=== PATIENT | male | born 1950 | race Caucasian/White ===

== ENCOUNTER 2018-02-28 16:51 | Inpatient (IN) ==
--- NOTE | 2018-02-28 18:45 | ED ---
HPI General Chief Complaint: Abdominal Pain Stated Complaint: abd pain X1week Time Seen by Provider: 02/28/18 18:35 History of Present Illness HPI narrative: This patient complains of abdominal pain. Duration 1 week. Severity is moderate. It waxes and wanes. He is not having vomiting or diarrhea or fever. He has history of 30 years of heavy alcohol abuse but quit 2 weeks ago. He does not go to Dr. or take any meds. No alleviating factors. No exacerbating factors. Denies history of pancreatitis or liver failure. He has chronic leg edema. His abdomen is swollen more than usual. Related Data Home Medications Medication Instructions Recorded Confirmed No Known Home Medications 02/28/18 02/28/18 Allergies Allergy/AdvReac Type Severity Reaction Status Date / Time No Known Allergies Allergy Unverified 02/28/18 16:59 Review of Systems Except as stated in HPI: all other systems reviewed are negative [facility] Surgical History Surgical History Hx of mitral valve repair (Acute) Social History Social History Substance History: No History of Abuse Second Hand Smoke Exposure: No Smoking Status: Never smoker How Often Do You Have a Drink Containing Alcohol: Monthly or less Recent Travel in [facility] within the Last 8 Weeks: No Recent Out of Country Travel within the Last 8 Weeks: No Immunization History Tetanus Immunization: Never Vaccinated Hx Influenza Vaccine This Season: No Exam Narrative Exam Narrative: GENERAL: Well-nourished, well-developed patient in no apparent distress. SKIN: Focused skin assessment reveals no rash and nodules. Skin is Warm and dry. HEAD: Atraumatic. Normocephalic. EYES: Pupils equal and round. No scleral icterus. No injection or drainage. ENT: No nasal bleeding or discharge. Mucous membranes pink and moist. NECK: Trachea midline. No JVD. CARDIOVASCULAR: Regular rate and rhythm. No murmur appreciated. RESPIRATORY: No accessory muscle use. Clear to auscultation. Breath sounds equal bilaterally. GASTROINTESTINAL: Abdomen soft, protuberant, some ascites present mild diffuse tenderness without rebound or guarding. Hepatic and splenic margins not palpable. MUSCULOSKELETAL: No obvious deformities. No clubbing. No cyanosis. Mild symmetric edema of the lower extremities. NEUROLOGICAL: Awake and alert. No obvious cranial nerve deficits. Motor grossly within normal limits. Normal speech. PSYCHIATRIC: Appropriate mood and affect; insight and judgment normal. Course Initial Documented Vital Signs Temperature 97.6 F 02/28/18 17:00 Pulse Rate 85 08/05/18 17:00 Respiratory Rate 18 02/28/18 17:00 Blood Pressure 119/68 02/28/18 17:00 Pulse Oximetry 98 02/28/18 17:00 Last Documented Vital Signs Temperature 97.6 F 02/28/18 17:00 Pulse Rate 85 02/28/18 17:00 Respiratory Rate 18 02/28/18 17:02 Blood Pressure 119/68 02/28/18 17:00 Pulse Oximetry 98 02/28/18 19:03 Medical Decision Making MDM Narrative Medical decision making narrative: I am seeing this patient 15 minutes before shift and. I am going to initiate an abdominal pain workup and the case will be checked out to the evening physician. Differential Diagnosis Differential Diagnosis: Cirrhosis, pancreatitis, colitis Medical Records Medical records reviewed: Yes I reviewed the patient's medical records. Lab Data Lab results reviewed: Yes I reviewed the patient's lab results. Result diagrams: 02/28/18 19:00 02/28/18 19:00 Lab Results 02/28/18 02/28/18 Range/Units 19:00 19:00 CBC w Diff Auto diff final WBC 11.1 H (4.0-11.0) th/mm3 RBC 4.47 L (4.50-5.90) mil/mm3 Hgb 10.8 L (13.0-17.0) gm/dL Hct 33.7 L (39.0-51.0) % MCV 75.4 L (80.0-100.0) fL MCH 24.1 L (27.0-34.0) pg MCHC 32.0 (32.0-36.0) % RDW 14.7 (11.6-17.2) % Plt Count 705 H (150-450) th/mm3 MPV 7.2 (7.0-11.0) fL Neut % (Auto) 82.1 H (16.0-70.0) % Lymph % (Auto) 8.2 L (9.0-44.0) % [place] % (Auto) 8.8 H (0.0-8.0) % Eos % (Auto) 0.6 (0.0-4.0) % Baso % (Auto) 0.3 (0.0-2.0) % Neut # (Auto) 9.1 H (1.8-7.7) th/mm3 Lymph # (Auto) 0.9 L (1.0-4.8) th/mm3 [place] # (Auto) 1.0 H (0.0-0.9) th/mm3 Eos # (Auto) 0.1 (0.0-0.4) th/mm3 Baso # (Auto) 0.0 (0.0-0.2) th/mm3 WBC Differential . Differential Comment . Sodium 130 L (136-145) meq/L Potassium 3.9 (3.5-5.1) meq/L Chloride 93 L (98-107) meq/L Carbon Dioxide 25.6 (21.0-32.0) meq/L Anion Gap 11 (5-15) meq/L BUN 9 (7-18) mg/dL Creatinine 0.73 (0.60-1.30) mg/dL Estimated GFR Greater than 89 (>89) mL/min Random Glucose 94 (74-106) mg/dL Calcium 9.1 (8.5-10.1) mg/dL Total Bilirubin 0.8 (0.2-1.0) mg/dL AST 38 H (15-37) U/L ALT 21 (12-78) U/L Alkaline Phosphatase 209 H (45-117) U/L Total Protein 7.3 (6.4-8.2) g/dL Albumin 2.6 L (3.4-5.0) g/dL Lipase 82 (73-393) U/L Imaging Data Attestation: I personally reviewed and interpreted this imaging study as follows : Radiologist's impression: Abdomen/Pelvis CT 02/28/18 18:47 CONCLUSION: 1. Irregular, large, malignant appearing mass of the cecum and terminal ileum with associated small bowel obstruction.. 2. Metastatic regional mesenteric nodules and/or lymph nodes in the right lower quadrant. 3. Widespread metastatic disease of the liver. 4. A subcentimeter nodule is seen in each visualized lung bases with very small bilateral effusions. 5. 5 mm sclerotic focus of the left sixth rib nonspecific but statistically most likely a benign bone island. Discharge Plan Discharge Disposition Patient Disposition: 30 Still Patient Discharge Details Diagnosis: SBO (small bowel obstruction), Abdominal mass Physicians Team ED Provider: Rhys Bustos Primary Care Provider: Primary Care Physici,No Rxs /Orders / Referrals /Forms Prescriptions: No Action No Known Home Medications RF: 0 Discharge Interventions Interventions: Vital Signs Last Done: 02/28/18 17:02 Status ED Status: With Doctor
[2018-02-28 19:05] LABS: Baso % (Auto) 0.3 % (0.0-2.0); Eos # (Auto) 0.1 th/mm3 (0.0-0.4); Eos % (Auto) 0.6 % (0.0-4.0); Hematocrit 33.7 % (39.0-51.0); Hemoglobin 10.8 gm/dL (13.0-17.0); Lymph # (Auto) 0.9 th/mm3 (1.0-4.8); Lymph % (Auto) 8.2 % (9.0-44.0); Mean Corpuscular Hemoglobin 24.1 pg (27.0-34.0); Mean Corpuscular Volume 75.4 fL (80.0-100.0); Mean Platelet Volume 7.2 fL (7.0-11.0); Mono % (Auto) 8.8 % (0.0-8.0); Neut # (Auto) 9.1 th/mm3 (1.8-7.7); Neut % (Auto) 82.1 % (16.0-70.0); Platelet Count 705 th/mm3 (150-450); Red Blood Count 4.47 mil/mm3 (4.50-5.90); Red Cell Distribution Width 14.7 % (11.6-17.2); White Blood Count 11.1 th/mm3 (4.0-11.0)
[2018-02-28 19:13] LABS: Chloride 93 meq/L (98-107); Potassium 3.9 meq/L (3.5-5.1); Sodium 130 meq/L (136-145)
[2018-02-28 19:17] LABS: Albumin 2.6 g/dL (3.4-5.0); Anion Gap 11 meq/L (5-15); Blood Urea Nitrogen 9 mg/dL (7-18); Calcium 9.1 mg/dL (8.5-10.1); Carbon Dioxide 25.6 meq/L (21.0-32.0); Glucose,Random 94 mg/dL (74-106); Lipase 82 U/L (73-393)
[2018-02-28 19:20] LABS: Alanine Aminotransferase 21 U/L (12-78); Aspartate Aminotransferase 38 U/L (15-37); Glomerular Filtration Rate Greater Than 89 mL/min (>89)
[2018-02-28 19:22] LABS: Total Protein 7.3 g/dL (6.4-8.2)
[2018-02-28 19:23] LABS: Alkaline Phosphatase 209 U/L (45-117)
--- NOTE | 2018-02-28 20:05 | CT ---
EXAM DATE: 02/28/2018 7:52 PM EDT AGE/SEX: 67 years / Male INDICATIONS: Abdominal pain for one week. CLINICAL DATA: This is the patient's initial encounter. Patient reports that signs and symptoms have been present for 1 week and indicates a pain score of 7/10. MEDICAL/SURGICAL HISTORY: . . Mitral valve repair. ORAL CONTRAST: No oral contrast ingested. RADIATION DOSE: 19.87 CTDI (mGy) COMPARISON: No prior exams available for comparison. TECHNIQUE: Multiple contiguous axial images were obtained through the abdomen and pelvis following b olus infusion of 85 ml Omnipaque 350 (iohexol) nonionic water-soluble contrast as a single exam dos e. No oral contrast ingested. Using automated exposure control and adjustment of the mA and/or kV ac cording to patient size, radiation dose was kept as low as reasonably achievable to obtain optimal di agnostic quality images. DICOM format image data is available electronically for review and comparis on. FINDINGS: There is irregular mass of the cecum and terminal ileum estimated at approximately 5.9 x 6.8 x 6.9 cm in size there is associated small bowel obstruction at the level of the terminal ileum. There are ri ght lower quadrant mesenteric nodules and/or lymph nodes measuring up to 3.3 x 4.1 x 3.6 cm. Numerous hypodense lesions are scattered throughout the liver measuring up to 5 cm in size consistent with metastatic disease. Trace ascites. Spleen, pancreas and adrenal glands are within normal limits. 2.3 cm peripelvic cyst of the left kidn ey. Right kidney is normal. In the visualized lung bases, there is a 9 mm nodule in the right middle lobe and a 4 mm nodule in th e lingular division of the left upper lobe. Very small pleural effusions are seen on both sides. 5 mm nonspecific sclerotic focus seen in left sixth rib. No other bone lesion is demonstrated. CONCLUSION: 1. Irregular, large, malignant appearing mass of the cecum and terminal ileum with associated small bowel obstruction.. 2. Metastatic regional mesenteric nodules and/or lymph nodes in the right lower quadrant. 3. Widespread metastatic disease of the liver. 4. A subcentimeter nodule is seen in each visualized lung bases with very small bilateral effusions. 5. 5 mm sclerotic focus of the left sixth rib nonspecific but statistically most likely a benign bon e island. Electronically signed by: Maycol Butler MD 02/28/2018 8:03 PM EDT
[2018-02-28] MEDS ORDERED: Temazepam 15 MG Capsule PO PRN (20:59)
[2018-02-28] MEDS ORDERED: Bisacodyl 10 MG Supp RECTAL PRN (20:59)
[2018-02-28] MEDS ORDERED: Morphine Sulfate Inj 2 MG/ML Vial IV.PUSH PRN (21:01)
[2018-02-28] MEDS: Sod Chloride 0.9% Inj 1,000 ML IV.CONT SCH (21:21)
[2018-02-28] MEDS ORDERED: HYDROmorphone PF Inj 0.5 MG/0.5 ML Syringe IV.PUSH PRN (21:47)
[2018-02-28] MEDS: Senna/Docusate Sodium 8.6/50 MG Tablet PO SCH (23:27)
[2018-03-01] MEDS: Sod Chloride 0.9% Inj 1,000 ML IV.CONT SCH ×6 (02:01→23:35)
[2018-03-01] MEDS: HYDROmorphone PF Inj 2 MG/ML Vial IV.PUSH PRN ×3 (02:18→18:40)
[2018-03-01 06:51] LABS: Baso % (Auto) 0.4 % (0.0-2.0); Eos # (Auto) 0.1 th/mm3 (0.0-0.4); Eos % (Auto) 1.1 % (0.0-4.0); Hematocrit 27.4 % (39.0-51.0); Hemoglobin 8.8 gm/dL (13.0-17.0); Lymph # (Auto) 1.2 th/mm3 (1.0-4.8); Mean Corpuscular HGB Conc 32.1 % (32.0-36.0); Mean Corpuscular Hemoglobin 23.5 pg (27.0-34.0); Mean Corpuscular Volume 73.3 fL (80.0-100.0); Mean Platelet Volume 7.3 fL (7.0-11.0); Mono # (Auto) 1.1 th/mm3 (0.0-0.9); Mono % (Auto) 11.8 % (0.0-8.0); Neut # (Auto) 6.8 th/mm3 (1.8-7.7); Neut % (Auto) 73.7 % (16.0-70.0); Platelet Count 570 th/mm3 (150-450); Red Blood Count 3.74 mil/mm3 (4.50-5.90); Red Cell Distribution Width 15.6 % (11.6-17.2); White Blood Count 9.2 th/mm3 (4.0-11.0)
[2018-03-01 07:10] LABS: Albumin 2.2 g/dL (3.4-5.0); Anion Gap 12 meq/L (5-15); Aspartate Aminotransferase 33 U/L (15-37); Blood Urea Nitrogen 10 mg/dL (7-18); Calcium 8.3 mg/dL (8.5-10.1); Carbon Dioxide 24.3 meq/L (21.0-32.0); Chloride 99 meq/L (98-107); Glomerular Filtration Rate Greater Than 89 mL/min (>89); Glucose,Random 91 mg/dL (74-106); Potassium 3.9 meq/L (3.5-5.1); Sodium 135 meq/L (136-145)
[2018-03-01 07:11] LABS: Alanine Aminotransferase 15 U/L (12-78)
[2018-03-01 07:14] LABS: Alkaline Phosphatase 167 U/L (45-117)
[2018-03-01] MEDS: Senna/Docusate Sodium 8.6/50 MG Tablet PO SCH ×3 (09:11→22:51)
--- NOTE | 2018-03-01 09:54 | P.CONGI ---
History of Present Illness Consult date: 03/01/18 Consult reason: SBO, mass in colon Chief complaint: SBO, Colonic Mass, Metastatic Disease History of Present Illness: This is a 67 yo M with PMH significant for MV replacement who presented to the [facility] ER yesterday with complaints of abdominal pain and swelling and constipation. Pt reports symptoms began one week ago with LUQ abdominal pain , states pain is described as a soreness with sharp pains every 3-4 minutes. Pain has been progressing over the past week and became unbearable yesterday. Also has been noticing his abdomen has been becoming increasingly swollen over the past week. Denies any nausea, vomiting, heartburn. States no BM in one week. He has tried multiple things OTC including ex-lax, Dulcolax, Tums, and Gas -x with no relief of symptoms. Reports a 10 lb weight loss over the past few weeks, does report he was trying to lose weight by stopping drinking alcohol and he does not eat a lot. Stopped drinking about 2 weeks ago, prior to this was drinking on a daily basis, states a few drinks a day but more on the weekends. Reports more vodka then beer. Quit smoking 20 years ago. Thinks his dad may have from colon cancer, at bedside thinks it was prostate. Pt denies any personal or family history of liver issues. Has never had EGD or colonoscopy. <Adriana Heart - Last Filed: 03/01/18 10:36> Review of Systems Constitutional: Reports weight loss Gastrointestinal: Reports abdominal pain, Reports constipation, Denies black, tarry stools, Denies bright, red blood in stools, Denies heartburn, Denies nausea, Denies vomiting Comments: abdominal swelling <Adriana Heart - Last Filed: 03/01/18 10:36> PMFSH - History History Provided By: Patient - Surgical History Surgical History: Surgical History (Last Updated 03/01/18 @ 10:33 by THOMPSON Morris) Hx of mitral valve repair (Acute) History of appendectomy - Tobacco History Second Hand Smoke Exposure: No Tobacco Use In Past 30 Days: No Smoking Status: Former smoker Tobacco Type: Cigarettes - Alcohol History How Often Do You Have a Drink Containing Alcohol: 4 or more times a week - Substance Use History Substance History: No History of Abuse - Travel History Recent Travel in the [place] Within the Last 8 Weeks: No Recent Travel Out of the Country Within the Last 8 Weeks: No - Immunization History Tetanus Immunization: Never Vaccinated Hx Influenza Vaccine This Season: No <Adriana Heart - Last Filed: 03/01/18 10:36> - Surgical History Surgical History: Surgical History (Last Updated 03/01/18 @ 10:33 by THOMPSON Morris) Hx of mitral valve repair (Acute) History of appendectomy <[place] Guillen - Last Filed: 03/01/18 18:27> Medications and Allergies Active Medications: Active Medications Al Hydroxide/Mg Hydroxide (Milk Of Magnesia Liq) 30 ml PO Q12H PRN PRN Reason: Mild Constipation Bisacodyl (Dulcolax Supp) 10 mg RECTAL DAILY PRN PRN Reason: SEVERE CONSITIPATION Hydromorphone HCl (Dilaudid Pf Inj) 0.5 mg IV.PUSH ONCE PRN PRN Reason: Acute Pain Last Admin: 02/28/18 22:01 Dose: 0.5 mg Hydromorphone HCl (Dilaudid Pf Inj) 1 mg IV.PUSH Q4H PRN PRN Reason: ABDOMINAL PAIN Last Admin: 03/01/18 02:18 Dose: 1 mg Sodium Chloride (Ns Inj) 1,000 mls @ 125 mls/hr IV.CONT .Q8H [facility] Last Admin: 03/01/18 05:31 Dose: 125 mls/hr Sodium Chloride (Ns Inj) 1,000 mls @ 100 mls/hr IV.CONT .Q10H [facility] Last Admin: 03/01/18 07:55 Dose: Not Given Lactulose (Lactulose Liq) 30 ml PO DAILY PRN PRN Reason: SEVERE CONSITIPATION Lorazepam (Ativan Inj) 1 mg IV.PUSH Q4H PRN PRN Reason: AGITATION/WITHDRAWAL Ondansetron HCl (Zofran Inj) 4 mg IV.PUSH Q6H PRN PRN Reason: NAUSEA OR VOMITING Senna/Docusate Sodium (Ambika-Colace) 1 tab PO BID [facility] Last Admin: 02/28/18 23:27 Dose: Not Given Sennosides (Senokot) 17.2 mg PO Q12H PRN PRN Reason: Moderate Constipation Sodium Chloride (Ns Flush) 2 ml IV.FLUSH PRN PRN PRN Reason: FLUSH AFTER USING IV ACCESS Temazepam (Restoril) 15 mg PO HS PRN PRN Reason: INSOMNIA <Adriana Heart - Last Filed: 03/01/18 10:36> Active Medications: Active Medications Al Hydroxide/Mg Hydroxide (Milk Of Magnesia Liq) 30 ml PO Q12H PRN PRN Reason: Mild Constipation Bisacodyl (Dulcolax Supp) 10 mg RECTAL DAILY PRN PRN Reason: SEVERE CONSITIPATION Hydromorphone HCl (Dilaudid Pf Inj) 0.5 mg IV.PUSH ONCE PRN PRN Reason: Acute Pain Last Admin: 02/28/18 22:01 Dose: 0.5 mg Hydromorphone HCl (Dilaudid Pf Inj) 1 mg IV.PUSH Q4H PRN PRN Reason: ABDOMINAL PAIN Last Admin: 03/01/18 12:10 Dose: 1 mg Sodium Chloride (Ns Inj) 1,000 mls @ 125 mls/hr IV.CONT .Q8H [facility] Last Admin: 03/01/18 12:12 Dose: 125 mls/hr Sodium Chloride (Ns Inj) 1,000 mls @ 100 mls/hr IV.CONT .Q10H [facility] Last Admin: 03/01/18 07:55 Dose: Not Given Lactulose (Lactulose Liq) 30 ml PO DAILY PRN PRN Reason: SEVERE CONSITIPATION Lorazepam (Ativan Inj) 1 mg IV.PUSH Q4H PRN PRN Reason: AGITATION/WITHDRAWAL Ondansetron HCl (Zofran Inj) 4 mg IV.PUSH Q6H PRN PRN Reason: NAUSEA OR VOMITING Senna/Docusate Sodium (Ambika-Colace) 1 tab PO BID [facility] Last Admin: 03/01/18 12:13 Dose: Not Given Sennosides (Senokot) 17.2 mg PO Q12H PRN PRN Reason: Moderate Constipation Sodium Chloride (Ns Flush) 2 ml IV.FLUSH PRN PRN PRN Reason: FLUSH AFTER USING IV ACCESS Temazepam (Restoril) 15 mg PO HS PRN PRN Reason: INSOMNIA <[place] Guillen - Last Filed: 03/01/18 18:27> Allergies Allergy/AdvReac Type Severity Reaction Status Date / Time No Known Allergies Allergy Unverified 02/28/18 16:59 Home Medications Medication Instructions Recorded Confirmed Type No Known Home Medications 02/28/18 02/28/18 History Exam Vital signs: Vital Signs 02/28/18 17:00 02/28/18 17:02 02/28/18 19:03 Temperature 97.6 F Pulse Rate 85 Respiratory Rate 18 18 Blood Pressure 119/68 Pulse Oximetry 98 97 98 02/28/18 21:35 03/01/18 01:07 Temperature 97.3 F L Pulse Rate 77 64 Respiratory Rate 22 18 Blood Pressure 103/76 132/69 Pulse Oximetry 100 99 Intake & Output 02/28/18 03/01/18 03/01/18 18:59 06:59 18:59 Intake Total 1000 / 1000 Output Total 300 / 300 Balance 700 / 700 Weight 102 kg 101 kg Intake: IV 1000 / 1000 NS Inj 1,000 ML @ 125 mls/hr IV 1000 / 1000 .CONT .Q8H [facility] Rx#:[id number] Output: Urine 300 / 300 Other: Date of Last Bowel Movement 02/22/18 - Constitutional no acute distress - Routine HEENT Exam Head: Present: normocephalic, atraumatic - Routine Respiratory Exam Absent: accessory muscle use - Routine Cardiovascular Exam Present: RRR - Routine Abdominal Exam Present: tenderness, distended, firm Comments: LUQ tenderness , hypoactive bowel sounds - Routine Skin Exam Present: dry, warm - Routine Neurological Exam Present: alert, oriented X3 <Adriana Heart - Last Filed: 03/01/18 10:36> Vital signs: Vital Signs 02/28/18 19:03 02/28/18 21:35 03/01/18 01:07 Temperature 97.3 F L Pulse Rate 77 64 Respiratory Rate 22 18 Blood Pressure 103/76 132/69 Pulse Oximetry 98 100 99 03/01/18 08:00 03/01/18 12:00 03/01/18 15:58 Temperature 97.2 F L 97.8 F 97.6 F Pulse Rate 66 68 77 Respiratory Rate 17 18 16 Blood Pressure 114/71 117/69 101/60 Pulse Oximetry 99 100 94 L 03/01/18 16:22 03/01/18 16:32 03/01/18 16:59 Temperature Pulse Rate 80 76 87 Respiratory Rate 16 16 16 Blood Pressure 97/53 L 97/53 L 92/53 L Pulse Oximetry 97 96 97 Intake & Output 02/28/18 03/01/18 03/01/18 18:59 06:59 18:59 Intake Total 1000 / 1000 1000 / 1000 Output Total 300 / 300 Balance 700 / 700 1000 / 1000 Weight 102 kg 101 kg Intake: IV 1000 / 1000 1000 / 1000 NS Inj 1,000 ML @ 125 mls/hr IV 1000 / 1000 1000 / 1000 .CONT .Q8H [facility] Rx#:[id number] Output: Urine 300 / 300 Other: Date of Last Bowel Movement 02/22/18 <[place] Guillen - Last Filed: 03/01/18 18:27> Results - Labs CBC & Chem 7: 03/01/18 06:11 03/01/18 06:11 Labs: Laboratory Results - last 24 hr 02/28/18 02/28/18 03/01/18 19:00 19:00 06:11 CBC w Diff Auto diff final WBC 11.1 H 9.2 RBC 4.47 L 3.74 L Hgb 10.8 L 8.8 L D Hct 33.7 L 27.4 L MCV 75.4 L 73.3 L MCH 24.1 L 23.5 L MCHC 32.0 32.1 RDW 14.7 15.6 Plt Count 705 H 570 H MPV 7.2 7.3 Neut % (Auto) 82.1 H 73.7 H Lymph % (Auto) 8.2 L 13.0 [place] % (Auto) 8.8 H 11.8 H Eos % (Auto) 0.6 1.1 Baso % (Auto) 0.3 0.4 Neut # (Auto) 9.1 H 6.8 Lymph # (Auto) 0.9 L 1.2 [place] # (Auto) 1.0 H 1.1 H Eos # (Auto) 0.1 0.1 Baso # (Auto) 0.0 0.0 WBC Differential . . Differential Comment . Auto diff final Sodium 130 L Potassium 3.9 Chloride 93 L Carbon Dioxide 25.6 Anion Gap 11 BUN 9 Creatinine 0.73 Estimated GFR Greater than 89 Random Glucose 94 Calcium 9.1 Total Bilirubin 0.8 AST 38 H ALT 21 Alkaline Phosphatase 209 H Total Protein 7.3 Albumin 2.6 L Lipase 82 03/01/18 06:11 CBC w Diff WBC RBC Hgb Hct MCV MCH MCHC RDW Plt Count MPV Neut % (Auto) Lymph % (Auto) [place] % (Auto) Eos % (Auto) Baso % (Auto) Neut # (Auto) Lymph # (Auto) [place] # (Auto) Eos # (Auto) Baso # (Auto) WBC Differential Differential Comment Sodium 135 L Potassium 3.9 Chloride 99 Carbon Dioxide 24.3 Anion Gap 12 BUN 10 Creatinine 0.59 L Estimated GFR Greater than 89 Random Glucose 91 Calcium 8.3 L D Total Bilirubin 0.6 AST 33 ALT 15 Alkaline Phosphatase 167 H Total Protein 6.0 L D Albumin 2.2 L Lipase - Imaging Impressions Abdomen/Pelvis CT 02/28/18 18:47 CONCLUSION: 1. Irregular, large, malignant appearing mass of the cecum and terminal ileum with associated small bowel obstruction.. 2. Metastatic regional mesenteric nodules and/or lymph nodes in the right lower quadrant. 3. Widespread metastatic disease of the liver. 4. A subcentimeter nodule is seen in each visualized lung bases with very small bilateral effusions. 5. 5 mm sclerotic focus of the left sixth rib nonspecific but statistically most likely a benign bone island. <Adriana Heart - Last Filed: 03/01/18 10:36> - Labs CBC & Chem 7: 03/01/18 06:11 03/01/18 06:11 Labs: Laboratory Results - last 24 hr 02/28/18 02/28/18 03/01/18 19:00 19:00 06:11 CBC w Diff Auto diff final WBC 11.1 H 9.2 RBC 4.47 L 3.74 L Hgb 10.8 L 8.8 L D Hct 33.7 L 27.4 L MCV 75.4 L 73.3 L MCH 24.1 L 23.5 L MCHC 32.0 32.1 RDW 14.7 15.6 Plt Count 705 H 570 H MPV 7.2 7.3 Neut % (Auto) 82.1 H 73.7 H Lymph % (Auto) 8.2 L 13.0 [place] % (Auto) 8.8 H 11.8 H Eos % (Auto) 0.6 1.1 Baso % (Auto) 0.3 0.4 Neut # (Auto) 9.1 H 6.8 Lymph # (Auto) 0.9 L 1.2 [place] # (Auto) 1.0 H 1.1 H Eos # (Auto) 0.1 0.1 Baso # (Auto) 0.0 0.0 WBC Differential . . Differential Comment . Auto diff final PT INR Sodium 130 L Potassium 3.9 Chloride 93 L Carbon Dioxide 25.6 Anion Gap 11 BUN 9 Creatinine 0.73 Estimated GFR Greater than 89 Random Glucose 94 Calcium 9.1 Total Bilirubin 0.8 AST 38 H ALT 21 Alkaline Phosphatase 209 H Total Protein 7.3 Albumin 2.6 L Lipase 82 Tumor Marker AFP Carcinoembryonic Ag CA 19-9 Antigen Hepatitis A IgM Ab Hep Bs Antigen Hep B Core IgM Ab Hep C IgG Ab 03/01/18 03/01/18 03/01/18 06:11 11:17 11:17 CBC w Diff WBC RBC Hgb Hct MCV MCH MCHC RDW Plt Count MPV Neut % (Auto) Lymph % (Auto) [place] % (Auto) Eos % (Auto) Baso % (Auto) Neut # (Auto) Lymph # (Auto) [place] # (Auto) Eos # (Auto) Baso # (Auto) WBC Differential Differential Comment PT INR Sodium 135 L Potassium 3.9 Chloride 99 Carbon Dioxide 24.3 Anion Gap 12 BUN 10 Creatinine 0.59 L Estimated GFR Greater than 89 Random Glucose 91 Calcium 8.3 L D Total Bilirubin 0.6 AST 33 ALT 15 Alkaline Phosphatase 167 H Total Protein 6.0 L D Albumin 2.2 L Lipase Tumor Marker AFP 2.7 Carcinoembryonic Ag 4829.1 H CA 19-9 Antigen 11758.0 H Hepatitis A IgM Ab Hep Bs Antigen Hep B Core IgM Ab Hep C IgG Ab 03/01/18 03/01/18 11:17 11:17 CBC w Diff WBC RBC Hgb Hct MCV MCH MCHC RDW Plt Count MPV Neut % (Auto) Lymph % (Auto) [place] % (Auto) Eos % (Auto) Baso % (Auto) Neut # (Auto) Lymph # (Auto) [place] # (Auto) Eos # (Auto) Baso # (Auto) WBC Differential Differential Comment PT 12.7 H INR 1.3 Sodium Potassium Chloride Carbon Dioxide Anion Gap BUN Creatinine Estimated GFR Random Glucose Calcium Total Bilirubin AST ALT Alkaline Phosphatase Total Protein Albumin Lipase Tumor Marker AFP Carcinoembryonic Ag CA 19-9 Antigen Hepatitis A IgM Ab Nonreactive Hep Bs Antigen Nonreactive Hep B Core IgM Ab Nonreactive Hep C IgG Ab Nonreactive - Imaging Impressions Abdomen/Pelvis CT 02/28/18 18:47 CONCLUSION: 1. Irregular, large, malignant appearing mass of the cecum and terminal ileum with associated small bowel obstruction.. 2. Metastatic regional mesenteric nodules and/or lymph nodes in the right lower quadrant. 3. Widespread metastatic disease of the liver. 4. A subcentimeter nodule is seen in each visualized lung bases with very small bilateral effusions. 5. 5 mm sclerotic focus of the left sixth rib nonspecific but statistically most likely a benign bone island. Chest CT 03/01/18 00:00 CONCLUSION: 1. Multiple tiny 3 mm or less nodules in both lungs. Differential diagnosis is postinflammatory change or early metastatic disease. Trace pleural fluid. No adenopathy. Previous sternotomy with mitral valve replacement. Liver Biopsy CT 03/01/18 00:00 CONCLUSION: 1. Uncomplicated CT guided biopsy of liver masses. <[place] Guillen - Last Filed: 03/01/18 18:27> Assessment and Plan - Plan Assessment: - Abdominal pain, LUQ, constant, described as soreness with sharp pains every 3- 4 minutes. Associated abdominal swelling over past week. No BM in one week, prior to this reports having BMs every other day. Also reports a 10 lb weight loss over the past few weeks, but states he was trying to lose weight. Denies nausea, vomiting, heartburn. ? Family history of colon cancer- father. Has never had EGD or colonoscopy Ct abdomen and pelvis W IV contrast (02/28) --> Irregular, large, malignant appearing mass of the cecum and terminal ileum with associated small bowel obstruction. Metastatic regional mesenteric nodules and /or lymph nodes in the right lower quadrant. Widespread metastatic disease of the liver. A subcentimeter nodule is seen in each visualized lung bases with very small bilateral effusions. 5 mm sclerotic focus of the left sixth rib nonspecific but statistically most likely a benign bone island. - Anemia- possibly secondary to above - Previous ETOH abuse- states quit drinking alcohol 2 weeks ago. Prior to this was drinking on a daily basis, states a few drinks a day but more on the weekends. Reports more vodka then beer. Plan: GS consult Planning on CT guided biopsy ? need for cecum mass biopsy- pt will not tolerate colonoscopy prep with bowel obstruction ?enema Tumor markers NPO Further recommendations to follow Pt has been seen and examined by myself and Dr. Guillen and this note is written on her behalf <Adriana Heart - Last Filed: 03/01/18 10:36> - Attending Attestation seen, examined agree with above had liver biopsy general surgery consult appreciated did not pass flatus or stool for 1 week insert ngt and place to low intermittent suction colonoscopy with tap water enema prep in am if stable -cannot have po prep due to obstruction abdominal x ray in am may need surgery if clinically deteriorates <[place] Guillen - Last Filed: 03/01/18 18:27>
--- NOTE | 2018-03-01 10:27 | P.HP ---
History of Present Illness Service: [facility] Primary Care Physician: No Primary Care Physician Chief Complaint: Abdominal pain History of Present Illness: 67 year old male with history of mitral valve replacement presented to the ER yesterday evening for evaluation of worsening abdominal pain. Pain is sharp and located mostly around the LUQ with no radiation. He states he began having the pain about a week ago but since then it has been becoming progressively worse and occurring with much more frequency, about every 3-4 more minutes. The pain became unbearable yesterday evening so he had his bring him to the ER. He denies relieving factors despite trying multiple OTC modalities such as Dulcolax, Tums, and Gas-X. He hasn't had a bowel movement or passed gas in the past seven days either. He denies nausea or vomiting. He reports he has been belching more frequently and has been having hiccups. He has been able to tolerate broth and water but otherwise has not eaten real food during this time. He reports he had two episodes of black stool about a week preceding the onset of his symptoms. He denies night sweats or unintentional weight loss but states that he has intentionally lost about 10 lb in the past several weeks or so. However, he has also noted that his abdomen has been becoming more distended. He hasn't been followed by a physician in many years and states he has never had a colonoscopy. He states his father may have had prostate cancer in his 70s. His mother is still alive with dementia. His brothers and sisters are alive and well, and he denies any known history of colon cancer in his family. He states typically he drinks a "few beers and cocktails" every night and more on the weekends but hasn't had a drink in the last two weeks. Denies symptoms of withdrawal. - Diagnosis (1) Intestinal mass (2) Liver metastasis (3) Lung nodules (4) SBO (small bowel obstruction) Inpatient Certification: I certify that the inpatient services were ordered in accordance with Medicare regulations governing the order. This includes certification that hospital inpatient services are reasonable and necessary and in the case of services not specified as inpatient-only under 42 CFR 419.22(n), that they are appropriately provided as inpatient services in accordance to with the 2-midnight benchmark under 43 CFR 412.3(e) Estimated Total Length of Stay (Days): 2 Plans for Post Hospital Care: Not yet determined Review of Systems Constitutional: Reports anorexia, Reports weight loss, Denies body ache(s), Denies chills, Denies fever(s), Denies headache(s), Denies night sweats Eyes: Denies change in vision Ears, Nose, Mouth, and Throat: Denies nasal congestion Cardiovascular: Denies chest pain, Denies fainting, Denies irregular heart rhythm, Denies leg swelling, Denies shortness of breath Respiratory: Denies cough Gastrointestinal: Reports abdominal pain, Reports belching, Reports bloating, Reports change in stools, Reports constipation, Denies bright, red blood in stools, Denies change in bowel habits, Denies constant urge to pass stool, Denies excessive passing of gas, Denies nausea, Denies vomiting Genitourinary: Denies blood in urine, Denies difficulty urinating Musculoskeletal: Denies back pain, Denies body aches Skin/Breast: Denies rash Neurologic: Denies dizziness Psychiatric: Denies confusion PMF - History History Provided By: Patient - Medical / Surgical Hx Neg / Unobtainable Medical Problems Denied: Yes - Surgical History Surgical History: Surgical History (Last Updated 03/01/18 @ 11:37 by Marzena East MD) History of appendectomy (Acute) Hx of mitral valve repair (Acute) - Family History Family History: Family History (Last Updated 03/01/18 @ 11:37 by Marzena East MD) Mother Dementia Father Prostate cancer - Tobacco History Second Hand Smoke Exposure: No Tobacco Use In Past 30 Days: No Smoking Status: Former smoker (Quit >20 years ago, prior smoked 1PPD) Tobacco Type: Cigarettes - Alcohol History How Often Do You Have a Drink Containing Alcohol: 4 or more times a week (No EtOH in last two weeks but prior was a daily drinker) - Substance Use History Substance History: No History of Abuse - Travel History Recent Travel in the [place] Within the Last 8 Weeks: No Recent Travel Out of the Country Within the Last 8 Weeks: No - Immunization History Tetanus Immunization: Never Vaccinated Hx Influenza Vaccine This Season: No Medications and Allergies Active Medications: Active Medications Al Hydroxide/Mg Hydroxide (Milk Of Magnesia Liq) 30 ml PO Q12H PRN PRN Reason: Mild Constipation Bisacodyl (Dulcolax Supp) 10 mg RECTAL DAILY PRN PRN Reason: SEVERE CONSITIPATION Hydromorphone HCl (Dilaudid Pf Inj) 0.5 mg IV.PUSH ONCE PRN PRN Reason: Acute Pain Last Admin: 02/28/18 22:01 Dose: 0.5 mg Hydromorphone HCl (Dilaudid Pf Inj) 1 mg IV.PUSH Q4H PRN PRN Reason: ABDOMINAL PAIN Last Admin: 03/01/18 02:18 Dose: 1 mg Sodium Chloride (Ns Inj) 1,000 mls @ 125 mls/hr IV.CONT .Q8H [facility] Last Admin: 03/01/18 05:31 Dose: 125 mls/hr Sodium Chloride (Ns Inj) 1,000 mls @ 100 mls/hr IV.CONT .Q10H [facility] Last Admin: 03/01/18 07:55 Dose: Not Given Lactulose (Lactulose Liq) 30 ml PO DAILY PRN PRN Reason: SEVERE CONSITIPATION Lorazepam (Ativan Inj) 1 mg IV.PUSH Q4H PRN PRN Reason: AGITATION/WITHDRAWAL Ondansetron HCl (Zofran Inj) 4 mg IV.PUSH Q6H PRN PRN Reason: NAUSEA OR VOMITING Senna/Docusate Sodium (Ambika-Colace) 1 tab PO BID [facility] Last Admin: 02/28/18 23:27 Dose: Not Given Sennosides (Senokot) 17.2 mg PO Q12H PRN PRN Reason: Moderate Constipation Sodium Chloride (Ns Flush) 2 ml IV.FLUSH PRN PRN PRN Reason: FLUSH AFTER USING IV ACCESS Temazepam (Restoril) 15 mg PO HS PRN PRN Reason: INSOMNIA Allergies Allergy/AdvReac Type Severity Reaction Status Date / Time No Known Allergies Allergy Unverified 02/28/18 16:59 Home Medications Medication Instructions Recorded Confirmed Type No Known Home Medications 02/28/18 02/28/18 History Exam Vital signs: Vital Signs 02/28/18 17:00 02/28/18 17:02 02/28/18 19:03 Temperature 97.6 F Pulse Rate 85 Respiratory Rate 18 18 Blood Pressure 119/68 Pulse Oximetry 98 97 98 02/28/18 21:35 03/01/18 01:07 Temperature 97.3 F L Pulse Rate 77 64 Respiratory Rate 22 18 Blood Pressure 103/76 132/69 Pulse Oximetry 100 99 Intake & Output 02/28/18 03/01/18 03/01/18 18:59 06:59 18:59 Intake Total 1000 / 1000 Output Total 300 / 300 Balance 700 / 700 Weight 102 kg 101 kg Intake: IV 1000 / 1000 NS Inj 1,000 ML @ 125 mls/hr IV 1000 / 1000 .CONT .Q8H [facility] Rx#:[id number] Output: Urine 300 / 300 Other: Date of Last Bowel Movement 02/22/18 Narrative: GENERAL: WN, WD pleasant male sitting up in bed in NAD. SKIN: Warm and dry. No jaundice. No rash. HEENT: PERRLA. EOMI. MMM. No scleral icterus. NECK: No tender LAD or JVD. HEART: RRR no m/r/g. LUNGS: CTAB without wheezes or crackles. ABDOMEN: Hypoactive throughout but with some tinkling bowel sounds in the RUQ. Distended, LUQ TTP. No guarding or rebound. EXTREMITIES: Trace ankle edema. 1+ pedal pulses. NEURO: Awake and alert. PSYCH: Appropriate mood and affect. Results - Labs CBC & Chem 7: 03/01/18 06:11 03/01/18 06:11 Labs: Laboratory Results - last 24 hr 02/28/18 02/28/18 03/01/18 19:00 19:00 06:11 CBC w Diff Auto diff final WBC 11.1 H 9.2 RBC 4.47 L 3.74 L Hgb 10.8 L 8.8 L D Hct 33.7 L 27.4 L MCV 75.4 L 73.3 L MCH 24.1 L 23.5 L MCHC 32.0 32.1 RDW 14.7 15.6 Plt Count 705 H 570 H MPV 7.2 7.3 Neut % (Auto) 82.1 H 73.7 H Lymph % (Auto) 8.2 L 13.0 Robertson % (Auto) 8.8 H 11.8 H Eos % (Auto) 0.6 1.1 Baso % (Auto) 0.3 0.4 Neut # (Auto) 9.1 H 6.8 Lymph # (Auto) 0.9 L 1.2 Robertson # (Auto) 1.0 H 1.1 H Eos # (Auto) 0.1 0.1 Baso # (Auto) 0.0 0.0 WBC Differential . . Differential Comment . Auto diff final Sodium 130 L Potassium 3.9 Chloride 93 L Carbon Dioxide 25.6 Anion Gap 11 BUN 9 Creatinine 0.73 Estimated GFR Greater than 89 Random Glucose 94 Calcium 9.1 Total Bilirubin 0.8 AST 38 H ALT 21 Alkaline Phosphatase 209 H Total Protein 7.3 Albumin 2.6 L Lipase 82 03/01/18 06:11 CBC w Diff WBC RBC Hgb Hct MCV MCH MCHC RDW Plt Count MPV Neut % (Auto) Lymph % (Auto) Robertson % (Auto) Eos % (Auto) Baso % (Auto) Neut # (Auto) Lymph # (Auto) Robertson # (Auto) Eos # (Auto) Baso # (Auto) WBC Differential Differential Comment Sodium 135 L Potassium 3.9 Chloride 99 Carbon Dioxide 24.3 Anion Gap 12 BUN 10 Creatinine 0.59 L Estimated GFR Greater than 89 Random Glucose 91 Calcium 8.3 L D Total Bilirubin 0.6 AST 33 ALT 15 Alkaline Phosphatase 167 H Total Protein 6.0 L D Albumin 2.2 L Lipase - Imaging Impressions Abdomen/Pelvis CT 02/28/18 18:47 CONCLUSION: 1. Irregular, large, malignant appearing mass of the cecum and terminal ileum with associated small bowel obstruction.. 2. Metastatic regional mesenteric nodules and/or lymph nodes in the right lower quadrant. 3. Widespread metastatic disease of the liver. 4. A subcentimeter nodule is seen in each visualized lung bases with very small bilateral effusions. 5. 5 mm sclerotic focus of the left sixth rib nonspecific but statistically most likely a benign bone island. Caprini VTE Risk Assessment Caprini VTE Risk Assessment: Moderate/High Risk (score >= 2) Caprini Risk Assessment Model: Point Value = 1 Point Value = 2 Point Value = 3 Point Value = 5 Age 41-60 Minor surgery BMI > 25 kg/m2 Swollen legs Varicose veins or History of unexplained or recurrent spontaneous Oral contraceptives or hormone replacement Sepsis (< 1 month) Serious lung disease, including pneumonia (< 1 month) Abnormal pulmonary function Acute myocardial infarction Congestive heart failure (< 1 month) History of inflammatory bowel disease Medical patient at bed rest Age 61-74 Arthroscopic surgery Major open surgery (> 45 min) Laparoscopic surgery (> 45 min) Malignancy Confined to bed (> 72 hours) Immobilizing plaster cast Central venous access Age >= 75 History of VTE Family history of VTE Factor V Leiden Prothrombin [id number] Lupus anticoagulant Anticardiolipin antibodies Elevated serum homocysteine Heparin-induced thrombocytopenia Other congenital or acquired thrombophilia Stroke (< 1 month) Elective arthroplasty Hip, pelvis, or leg fracture Acute spinal cord injury (< 1 month) Prophylaxis Regimen: Total Risk Factor Score Risk Level Prophylaxis Regimen 0-1 Low Early ambulation 2 Moderate Order ONE of the following: *Sequential Compression Device (SCD) *Heparin 5000 units SQ BID 3-4 Higher Order ONE of the following medications: *Heparin 5000 units SQ TID *Enoxaparin/Lovenox 40 mg SQ daily (WT < 150 kg, CrCl > 30 mL/min) *Enoxaparin/Lovenox 30 mg SQ daily (WT < 150 kg, CrCl > 10-29 mL/min) *Enoxaparin/Lovenox 30 mg SQ BID (WT < 150 kg, CrCl > 30 mL/min) AND/OR *Sequential Compression Device (SCD) 5 or more Highest Order ONE of the following medications: *Heparin 5000 units SQ TID (Preferred with Epidurals) *Enoxaparin/Lovenox 40 mg SQ daily (WT < 150 kg, CrCl > 30 mL/min) *Enoxaparin/Lovenox 30 mg SQ daily (WT < 150 kg, CrCl > 10-29 mL/min) *Enoxaparin/Lovenox 30 mg SQ BID (WT < 150 kg, CrCl > 30 mL/min) AND *Sequential Compression Device (SCD) Assessment and Plan - Assessment (1) Intestinal mass Code(s): K63.89 - Other specified diseases of intestine Status: Acute (2) Liver metastasis Code(s): C78.7 - Secondary malignant neoplasm of liver and intrahepatic bile duct Status: Acute (3) Lung nodules Code(s): R91.8 - Other nonspecific abnormal finding of lung field Status: Acute (4) SBO (small bowel obstruction) Code(s): K56.609 - Unspecified intestinal obstruction, unspecified as to partial versus complete obstruction Status: Acute - Plan 67 year old male with history of mitral valve replacement admitted 02/28 for abdominal pain. On CT, he was found to have a mass on the cecum and terminal ileum along with widespread metastatic lesions on the liver. 1. Intestinal mass with liver mets - CT A/P showing an irregular, large, malignant appearing mass of the cecum and terminal ileum with associated SBO. There is also metastatic regional mesenteric nodules and/or lymph node in the RLQ as well as widespread liver mets - Alkaline phosphatase elevated - Mild AST elevation, likely secondary to chronic EtOH use vs. liver mets - GI and general surgery consulted - Planning for CT-guided biopsy of liver - Possible colonoscopy - Check tumor markers - Will await further eval before consulting oncology 2. SBO - Patient with no BM or flatus x 1 week and large cecal/terminal ileum mass - No N/V therefore hold off on NG tube - Pain control - NPO - OOB - NS at 100 ml/hr - Incentive spirometer 3. Lung nodules - Visualized on CT A/P - Obtain CT chest for better visualization and eval for pulmonary mets - History of tobacco abuse >20 years ago - Supplemental O2 to maintain sats >92% 4. Anemia - H&H 8.8/27.4 this AM. Down from 10.8 last night, possibly component of dilution - Likely secondary to intestinal mass - Hemodynamically stable - Continue to monitor - Transfuse if Hb <7 5. History of mitral valve replacement - Monitor BP - No signs of CHF DVT prophylaxis: Hold chemical anticoagulation as patient to possibly undergo CT -guided bx Code Status: Full Discussed Condition With: Patient, , and Dr. Olivia
--- NOTE | 2018-03-01 10:35 | P.CONGS ---
HPI Gen Surgery Consult Note Consult date: 03/01/18 Reason for consult: other (CT scan with evidence of metastatic disease) Requesting physician: Caryl Zhong Narrative: This is a 67 year old male with a past medical history of mitral valve replacement who presented to the [facility] ED with complaints of abdominal pain for about one week. The patient denies any nausea or vomiting. He reports his last BM was a week ago which is unusual for him. He does report that he was drinking 2-3 beers a day as well and 2-3 mixed cocktail drinks a day. He quit drinking two weeks ago. He reports since then he has lost [address] abdomen/pelvis was obtained which shows a large irregular, malignant appearing mass of the cecum and terminal ileum with associated small bowel obstruction; there appears to be widespread metastatic disease of the liver; subcentimeter nodule of each lung base. GI has been consulted. A General Surgery consultation has been requested. <Sandee Jaime - Last Filed: 03/01/18 11:22> Review of Systems Constitutional: Reports anorexia, Denies chills, Denies fever(s), Denies headache(s) Eyes: Denies blurry vision Ears, Nose, Mouth, and Throat: Denies dizziness, Denies headache(s) Cardiovascular: Denies chest pain, Denies chest pain at rest, Denies chest pain with activity Respiratory: Denies chest congestion, Denies cough Gastrointestinal: Reports abdominal pain, Reports belching, Reports bloating, Reports change in stools Genitourinary: Denies decreased urination, Denies difficulty urinating Musculoskeletal: Denies abnormal walking, Denies back pain Skin/Breast: Denies lesions Neurologic: Denies abnormal hearing, Denies frequent falls Psychiatric: Denies anxiety, Denies confusion, Denies depression Endocrine: Denies cold intolerance, Denies heat intolerance Hematologic/Lymphatic: Denies easy bleeding Allergic/Immunologic: Denies GI upset with certain foods <Sandee Jaime - Last Filed: 03/01/18 11:22> PMFSH - History History Provided By: Patient - Surgical History Surgical History: Surgical History (Last Updated 03/01/18 @ 10:33 by THOMPSON Morris) Hx of mitral valve repair (Acute) History of appendectomy - Tobacco History Second Hand Smoke Exposure: No Tobacco Use In Past 30 Days: No Smoking Status: Former smoker Tobacco Type: Cigarettes - Alcohol History How Often Do You Have a Drink Containing Alcohol: 4 or more times a week - Substance Use History Substance History: No History of Abuse - Travel History Recent Travel in the [place] Within the Last 8 Weeks: No Recent Travel Out of the Country Within the Last 8 Weeks: No - Immunization History Tetanus Immunization: Never Vaccinated Hx Influenza Vaccine This Season: No <Sandee Jaime - Last Filed: 03/01/18 11:22> - Surgical History Surgical History: Surgical History (Last Updated 03/01/18 @ 10:33 by THOMPSON Morris) Hx of mitral valve repair (Acute) History of appendectomy - Family History Family History: Family History (Last Reviewed 03/01/18 @ 12:46 by Fede Olivia MD) Mother Dementia Father Prostate cancer <Fede Olivia - Last Filed: 03/01/18 12:53> Medications and Allergies Active Medications: Active Medications Al Hydroxide/Mg Hydroxide (Milk Of Magnesia Liq) 30 ml PO Q12H PRN PRN Reason: Mild Constipation Bisacodyl (Dulcolax Supp) 10 mg RECTAL DAILY PRN PRN Reason: SEVERE CONSITIPATION Hydromorphone HCl (Dilaudid Pf Inj) 0.5 mg IV.PUSH ONCE PRN PRN Reason: Acute Pain Last Admin: 02/28/18 22:01 Dose: 0.5 mg Hydromorphone HCl (Dilaudid Pf Inj) 1 mg IV.PUSH Q4H PRN PRN Reason: ABDOMINAL PAIN Last Admin: 03/01/18 02:18 Dose: 1 mg Sodium Chloride (Ns Inj) 1,000 mls @ 125 mls/hr IV.CONT .Q8H [facility] Last Admin: 03/01/18 05:31 Dose: 125 mls/hr Sodium Chloride (Ns Inj) 1,000 mls @ 100 mls/hr IV.CONT .Q10H [facility] Last Admin: 03/01/18 07:55 Dose: Not Given Lactulose (Lactulose Liq) 30 ml PO DAILY PRN PRN Reason: SEVERE CONSITIPATION Lorazepam (Ativan Inj) 1 mg IV.PUSH Q4H PRN PRN Reason: AGITATION/WITHDRAWAL Ondansetron HCl (Zofran Inj) 4 mg IV.PUSH Q6H PRN PRN Reason: NAUSEA OR VOMITING Senna/Docusate Sodium (Ambika-Colace) 1 tab PO BID [facility] Last Admin: 02/28/18 23:27 Dose: Not Given Sennosides (Senokot) 17.2 mg PO Q12H PRN PRN Reason: Moderate Constipation Sodium Chloride (Ns Flush) 2 ml IV.FLUSH PRN PRN PRN Reason: FLUSH AFTER USING IV ACCESS Temazepam (Restoril) 15 mg PO HS PRN PRN Reason: INSOMNIA <Sandee Jaime - Last Filed: 03/01/18 11:22> Active Medications: Active Medications Al Hydroxide/Mg Hydroxide (Milk Of Magnesia Liq) 30 ml PO Q12H PRN PRN Reason: Mild Constipation Bisacodyl (Dulcolax Supp) 10 mg RECTAL DAILY PRN PRN Reason: SEVERE CONSITIPATION Hydromorphone HCl (Dilaudid Pf Inj) 0.5 mg IV.PUSH ONCE PRN PRN Reason: Acute Pain Last Admin: 02/28/18 22:01 Dose: 0.5 mg Hydromorphone HCl (Dilaudid Pf Inj) 1 mg IV.PUSH Q4H PRN PRN Reason: ABDOMINAL PAIN Last Admin: 03/01/18 02:18 Dose: 1 mg Sodium Chloride (Ns Inj) 1,000 mls @ 125 mls/hr IV.CONT .Q8H [facility] Last Admin: 03/01/18 05:31 Dose: 125 mls/hr Sodium Chloride (Ns Inj) 1,000 mls @ 100 mls/hr IV.CONT .Q10H [facility] Last Admin: 03/01/18 07:55 Dose: Not Given Lactulose (Lactulose Liq) 30 ml PO DAILY PRN PRN Reason: SEVERE CONSITIPATION Lorazepam (Ativan Inj) 1 mg IV.PUSH Q4H PRN PRN Reason: AGITATION/WITHDRAWAL Ondansetron HCl (Zofran Inj) 4 mg IV.PUSH Q6H PRN PRN Reason: NAUSEA OR VOMITING Senna/Docusate Sodium (Ambika-Colace) 1 tab PO BID [facility] Last Admin: 02/28/18 23:27 Dose: Not Given Sennosides (Senokot) 17.2 mg PO Q12H PRN PRN Reason: Moderate Constipation Sodium Chloride (Ns Flush) 2 ml IV.FLUSH PRN PRN PRN Reason: FLUSH AFTER USING IV ACCESS Temazepam (Restoril) 15 mg PO HS PRN PRN Reason: INSOMNIA <Fede Olivia - Last Filed: 03/01/18 12:53> Allergies Allergy/AdvReac Type Severity Reaction Status Date / Time No Known Allergies Allergy Unverified 02/28/18 16:59 Home Medications Medication Instructions Recorded Confirmed Type No Known Home Medications 02/28/18 02/28/18 History Exam Vital signs: Vital Signs 02/28/18 21:35 03/01/18 01:07 Temperature 97.3 F L Pulse Rate 77 64 Respiratory Rate 22 18 Blood Pressure 103/76 132/69 Pulse Oximetry 100 99 Intake & Output 02/28/18 03/01/18 03/01/18 18:59 06:59 18:59 Intake Total 1000 / 1000 Output Total 300 / 300 Balance 700 / 700 Weight 102 kg 101 kg Intake: IV 1000 / 1000 NS Inj 1,000 ML @ 125 mls/hr IV 1000 / 1000 .CONT .Q8H [facility] Rx#:[id number] Output: Urine 300 / 300 Other: Date of Last Bowel Movement 02/22/18 Narrative: GENERAL: Very pleasant 67 year old male resting in bed in no acute distress. SKIN: Warm and dry. HEAD: Atraumatic. Normocephalic. EYES: Pupils equal and round. No scleral icterus. No injection or drainage. ENT: No nasal bleeding or discharge. Mucous membranes pink and moist. NECK: Trachea midline. CARDIOVASCULAR: Regular rate and rhythm. Large well healed sternal incision. RESPIRATORY: No accessory muscle use. Clear to auscultation. Breath sounds equal bilaterally. GASTROINTESTINAL: Abdomen soft, non-tender, distended. Well healed RIGHT lower quadrant incision. MUSCULOSKELETAL: Extremities without clubbing or cyanosis. Bilateral lower extremity edema. No obvious deformities. NEUROLOGICAL: Awake and alert. No obvious cranial nerve deficits. Motor grossly within normal limits. Five out of 5 muscle strength in the arms and legs. Normal speech. PSYCHIATRIC: Appropriate mood and affect; insight and judgment normal. <Sandee Jaime - Last Filed: 03/01/18 11:22> Vital signs: Vital Signs 02/28/18 17:00 02/28/18 17:02 02/28/18 19:03 Temperature 97.6 F Pulse Rate 85 Respiratory Rate 18 18 Blood Pressure 119/68 Pulse Oximetry 98 97 98 02/28/18 21:35 03/01/18 01:07 Temperature 97.3 F L Pulse Rate 77 64 Respiratory Rate 22 18 Blood Pressure 103/76 132/69 Pulse Oximetry 100 99 Intake & Output 02/28/18 03/01/18 03/01/18 18:59 06:59 18:59 Intake Total 1000 / 1000 Output Total 300 / 300 Balance 700 / 700 Weight 102 kg 101 kg Intake: IV 1000 / 1000 NS Inj 1,000 ML @ 125 mls/hr IV 1000 / 1000 .CONT .Q8H [facility] Rx#:[id number] Output: Urine 300 / 300 Other: Date of Last Bowel Movement 02/22/18 <Fede Olivia - Last Filed: 03/01/18 12:53> Results - Labs 03/01/18 06:11 03/01/18 06:11 Laboratory Results CBC w Diff Auto diff final 02/28/18 19:00 WBC 9.2 th/mm3 (4.0-11.0) 03/01/18 06:11 RBC 3.74 mil/mm3 (4.50-5.90) L 03/01/18 06:11 Hgb 8.8 gm/dL (13.0-17.0) L D 03/01/18 06:11 Hct 27.4 % (39.0-51.0) L 03/01/18 06:11 MCV 73.3 fL (80.0-100.0) L 03/01/18 06:11 MCH 23.5 pg (27.0-34.0) L 03/01/18 06:11 MCHC 32.1 % (32.0-36.0) 03/01/18 06:11 RDW 15.6 % (11.6-17.2) 03/01/18 06:11 Plt Count 570 th/mm3 (150-450) H 03/01/18 06:11 MPV 7.3 fL (7.0-11.0) 03/01/18 06:11 Neut % (Auto) 73.7 % (16.0-70.0) H 03/01/18 06:11 Lymph % (Auto) 13.0 % (9.0-44.0) 03/01/18 06:11 [place] % (Auto) 11.8 % (0.0-8.0) H 03/01/18 06:11 Eos % (Auto) 1.1 % (0.0-4.0) 03/01/18 06:11 Baso % (Auto) 0.4 % (0.0-2.0) 03/01/18 06:11 Neut # (Auto) 6.8 th/mm3 (1.8-7.7) 03/01/18 06:11 Lymph # (Auto) 1.2 th/mm3 (1.0-4.8) 03/01/18 06:11 [place] # (Auto) 1.1 th/mm3 (0.0-0.9) H 03/01/18 06:11 Eos # (Auto) 0.1 th/mm3 (0.0-0.4) 03/01/18 06:11 Baso # (Auto) 0.0 th/mm3 (0.0-0.2) 03/01/18 06:11 WBC Differential . 03/01/18 06:11 Differential Comment Auto diff final 03/01/18 06:11 Sodium 135 meq/L (136-145) L 03/01/18 06:11 Potassium 3.9 meq/L (3.5-5.1) 03/01/18 06:11 Chloride 99 meq/L (98-107) 03/01/18 06:11 Carbon Dioxide 24.3 meq/L (21.0-32.0) 03/01/18 06:11 Anion Gap 12 meq/L (5-15) 03/01/18 06:11 BUN 10 mg/dL (7-18) 03/01/18 06:11 Creatinine 0.59 mg/dL (0.60-1.30) L 03/01/18 06:11 Estimated GFR Greater than 89 mL/min (>89) 03/01/18 06:11 Random Glucose 91 mg/dL (74-106) 03/01/18 06:11 Calcium 8.3 mg/dL (8.5-10.1) L D 03/01/18 06:11 Total Bilirubin 0.6 mg/dL (0.2-1.0) 03/01/18 06:11 AST 33 U/L (15-37) 03/01/18 06:11 ALT 15 U/L (12-78) 03/01/18 06:11 Alkaline Phosphatase 167 U/L (45-117) H 03/01/18 06:11 Total Protein 6.0 g/dL (6.4-8.2) L D 03/01/18 06:11 Albumin 2.2 g/dL (3.4-5.0) L 03/01/18 06:11 Lipase 82 U/L (73-393) 02/28/18 19:00 Impressions Abdomen/Pelvis CT 02/28/18 18:47 CONCLUSION: 1. Irregular, large, malignant appearing mass of the cecum and terminal ileum with associated small bowel obstruction.. 2. Metastatic regional mesenteric nodules and/or lymph nodes in the right lower quadrant. 3. Widespread metastatic disease of the liver. 4. A subcentimeter nodule is seen in each visualized lung bases with very small bilateral effusions. 5. 5 mm sclerotic focus of the left sixth rib nonspecific but statistically most likely a benign bone island. - Imaging CT scan - abdomen: image reviewed <Sandee Jaime - Last Filed: 03/01/18 11:22> - Labs 03/01/18 06:11 03/01/18 06:11 Abnormal lab results 02/28/18 02/28/18 03/01/18 Range/Units 19:00 19:00 06:11 WBC 11.1 H (4.0-11.0) th/mm3 RBC 4.47 L 3.74 L (4.50-5.90) mil/mm3 Hgb 10.8 L 8.8 L D (13.0-17.0) gm/dL Hct 33.7 L 27.4 L (39.0-51.0) % MCV 75.4 L 73.3 L (80.0-100.0) fL MCH 24.1 L 23.5 L (27.0-34.0) pg Plt Count 705 H 570 H (150-450) th/mm3 Neut % (Auto) 82.1 H 73.7 H (16.0-70.0) % Lymph % (Auto) 8.2 L (9.0-44.0) % [place] % (Auto) 8.8 H 11.8 H (0.0-8.0) % Neut # (Auto) 9.1 H (1.8-7.7) th/mm3 Lymph # (Auto) 0.9 L (1.0-4.8) th/mm3 [place] # (Auto) 1.0 H 1.1 H (0.0-0.9) th/mm3 Sodium 130 L (136-145) meq/L Chloride 93 L (98-107) meq/L Creatinine (0.60-1.30) mg/dL Calcium (8.5-10.1) mg/dL AST 38 H (15-37) U/L Alkaline Phosphatase 209 H (45-117) U/L Total Protein (6.4-8.2) g/dL Albumin 2.6 L (3.4-5.0) g/dL 03/01/18 Range/Units 06:11 WBC (4.0-11.0) th/mm3 RBC (4.50-5.90) mil/mm3 Hgb (13.0-17.0) gm/dL Hct (39.0-51.0) % MCV (80.0-100.0) fL MCH (27.0-34.0) pg Plt Count (150-450) th/mm3 Neut % (Auto) (16.0-70.0) % Lymph % (Auto) (9.0-44.0) % [place] % (Auto) (0.0-8.0) % Neut # (Auto) (1.8-7.7) th/mm3 Lymph # (Auto) (1.0-4.8) th/mm3 [place] # (Auto) (0.0-0.9) th/mm3 Sodium 135 L (136-145) meq/L Chloride (98-107) meq/L Creatinine 0.59 L (0.60-1.30) mg/dL Calcium 8.3 L D (8.5-10.1) mg/dL AST (15-37) U/L Alkaline Phosphatase 167 H (45-117) U/L Total Protein 6.0 L D (6.4-8.2) g/dL Albumin 2.2 L (3.4-5.0) g/dL Diabetes panel 02/28/18 03/01/18 Range/Units 19:00 06:11 Sodium 130 L 135 L (136-145) meq/L Potassium 3.9 3.9 (3.5-5.1) meq/L Chloride 93 L 99 (98-107) meq/L Carbon Dioxide 25.6 24.3 (21.0-32.0) meq/L BUN 9 10 (7-18) mg/dL Creatinine 0.73 0.59 L (0.60-1.30) mg/dL Calcium 9.1 8.3 L D (8.5-10.1) mg/dL AST 38 H 33 (15-37) U/L ALT 21 15 (12-78) U/L Alkaline Phosphatase 209 H 167 H (45-117) U/L Total Protein 7.3 6.0 L D (6.4-8.2) g/dL Albumin 2.6 L 2.2 L (3.4-5.0) g/dL Calcium panel 02/28/18 03/01/18 Range/Units 19:00 06:11 Calcium 9.1 8.3 L D (8.5-10.1) mg/dL Albumin 2.6 L 2.2 L (3.4-5.0) g/dL Pituitary panel 02/28/18 03/01/18 Range/Units 19:00 06:11 Sodium 130 L 135 L (136-145) meq/L Potassium 3.9 3.9 (3.5-5.1) meq/L Chloride 93 L 99 (98-107) meq/L Carbon Dioxide 25.6 24.3 (21.0-32.0) meq/L BUN 9 10 (7-18) mg/dL Creatinine 0.73 0.59 L (0.60-1.30) mg/dL Calcium 9.1 8.3 L D (8.5-10.1) mg/dL Adrenal panel 02/28/18 03/01/18 Range/Units 19:00 06:11 Sodium 130 L 135 L (136-145) meq/L Potassium 3.9 3.9 (3.5-5.1) meq/L Chloride 93 L 99 (98-107) meq/L Carbon Dioxide 25.6 24.3 (21.0-32.0) meq/L BUN 9 10 (7-18) mg/dL Creatinine 0.73 0.59 L (0.60-1.30) mg/dL Calcium 9.1 8.3 L D (8.5-10.1) mg/dL Total Bilirubin 0.8 0.6 (0.2-1.0) mg/dL AST 38 H 33 (15-37) U/L ALT 21 15 (12-78) U/L Alkaline Phosphatase 209 H 167 H (45-117) U/L Total Protein 7.3 6.0 L D (6.4-8.2) g/dL Albumin 2.6 L 2.2 L (3.4-5.0) g/dL All other labs normal. <Fede Olivia - Last Filed: 03/01/18 12:53> Assessment and Plan - Plan 67 year old male with 1 week history of abdominal pain; CT findings of cecum mass; ? metastatic liver lesions -Plan for CT guided biopsy of liver -GI consulted for possible colonoscopy -NPO -IVF -Further recommendations once tissue diagnosis -Thank you for this consult; We will continue to follow Discussed Condition With: Dr. Corwin MACKAY MrTanja and Mrs. Craig <Sandee Jaime - Last Filed: 03/01/18 11:22> - Assessment (1) Colon cancer Code(s): C18.9 - Malignant neoplasm of colon, unspecified Status: Suspected Qualifiers: Colon location: ascending Qualified Code(s): C18.2 - Malignant neoplasm of ascending colon (2) Intestinal mass Code(s): K63.89 - Other specified diseases of intestine Status: Acute (3) Liver metastasis Code(s): C78.7 - Secondary malignant neoplasm of liver and intrahepatic bile duct Status: Acute (4) Hx of mitral valve repair Code(s): Z98.890 - Other specified postprocedural states Status: Acute - Attending Attestation NOTE FOR SURGICAL ATTENDING, DR. FEDE OLIVIA Patient seen and examined CT reviewed Await further laboratory data Await GI input May require surgical resection if he is obstructed at bedside I agree with above assessment and plan. The exam, history, and the medical decision-making described in the above note were completed with the assistance of the mid-level provider. I reviewed and agree with the findings presented. I attest that I had a [id number] encounter with the patient on the same day, and personally performed and documented my assessment and findings in the medical record. The following services were provided during this hospital visit: Chart data review, vital sign assessments/reviewing monitor data Review of consultations notes if present. Medication orders/review and/or management Ordering and/or reviewing lab tests Ordering and/or interpreting/reviewing x-rays and/or diagnostic studies Care of the patient and discussion of the patient with the care team Documentation time To help prompt me to consider important information that might be impacting today's encounter and assessment, Information from prior notes written by myself or my colleagues may have been "brought forward/copy and pasted" into today's note. <Fede Olivia - Last Filed: 03/01/18 12:53>
[2018-03-01 11:51] LABS: INR 1.3 Ratio; Prothrombin Time 12.7 sec (9.8-11.6)
[2018-03-01 12:16] LABS: Alpha Fetoprotein Tumor Marker 2.7 ng/mL (0.5-8.0); Carcinoembryonic Antigen 4829.1 ng/mL (0.2-5.0)
[2018-03-01] MEDS ORDERED: Lidocaine 1%/Epinephrine 1:100,000 Inj 20 ML Vial ONE (15:02)
[2018-03-01] MEDS ORDERED: fentaNYL Citrate Inj 250 MCG/5 ML Ampul ONE (15:05)
[2018-03-01 15:31] LABS: Hepatitits B Surface Antigen Nonreactive (Nonreactive)
--- NOTE | 2018-03-01 15:38 | CT ---
EXAM DATE: 03/01/2018 3:22 PM EDT AGE/SEX: 67 years / Male INDICATIONS: Metastatic disease. CLINICAL DATA: This is the patient's initial encounter. Patient reports that signs and symptoms have been present for 1 day and indicates a pain score of 0/10. MEDICAL/SURGICAL HISTORY: Carcinoma, colon. Appendectomy. Mitral valve replacement. RADIATION DOSE: 9.59 CTDI (mGy) COMPARISON: No prior exams available for comparison. TECHNIQUE: Multiple contiguous axial images were obtained through the chest during bolus infusion of 70 ml Omnipaque 350 (iohexol) nonionic water-soluble contrast as a single exam dose. Images were obtained in suspended respiration using multiple row detector helical technique. Using automated exp osure control and adjustment of the mA and/or kV according to patient size, radiation dose was kept a s low as reasonably achievable to obtain optimal diagnostic quality images. DICOM format image data is available electronically for review and comparison. FINDINGS: There are multiple scattered tiny 3 mm or less nodules in both lungs. These are indeterminate for met astatic disease at this point. There is extensive metastatic disease in the liver however. There is a small right-sided pleural effusion and trace left pleural fluid. No hilar, mediastinal or axillary adenopathy. Previous sternotomy. Mitral valve replacement. CONCLUSION: 1. Multiple tiny 3 mm or less nodules in both lungs. Differential diagnosis is postinflammatory roberts ge or early metastatic disease. Trace pleural fluid. No adenopathy. Previous sternotomy with mitral v alve replacement. Electronically signed by: Fede Smith MD 03/01/2018 3:37 PM EDT
[2018-03-01 15:57] LABS: Hepatitis A IgM Antibody Nonreactive (Nonreactive)
--- NOTE | 2018-03-01 16:11 | CT ---
EXAM DATE: 03/01/2018 3:54 PM EDT AGE/SEX: 67 years / Male INDICATIONS: Liver mass. CLINICAL DATA: This is the patient's initial encounter. Patient reports that signs and symptoms have been present for 1 day and indicates a pain score of 0/10. MEDICAL/SURGICAL HISTORY: Carcinoma, colon. Appendectomy. COMPARISON: [facility], CT ABDOMEN & PELVIS W CONTRAST, 02/28/2018. . BIOPSY SITE: . liver MEDICATION(S): 2mg midazolam (Versed) IV 100mcg fentanyl (Sublimaze) IV DEVICE(S): 20 gauge BARD biopsy needle Two core specimen(s) sent to the laboratory for pathologic evaluation. . . PROCEDURE: CT guided . liver biopsy Prior to the procedure informed consent was obtained. Any appropriate prior imaging studies were rev iewed. Using automated exposure control and adjustment of the mA and/or kV according to patient size, radiat ion dose was kept as low as reasonably achievable to obtain optimal diagnostic quality images. DICOM format image data is available electronically for review and comparison. The site was prepped in a sterile fashion. Full sterile technique was used, including cap, mask, omega rile gloves and gown and a large sterile sheet. Hand hygiene and 2% chlorhexidine and/or betadine/al cohol prep was utilized per protocol for cutaneous antisepsis. The skin and subcutaneous tissues wer e infiltrated with local anesthetic solution. With CT guidance the liver masses were localized. Biopsy was performed using the prescribed needle as above. Adequate hemostasis was obtained with compression at the puncture site. Follow-up CT scan reveals no hemorrhage. The patient tolerated the procedure well and there were no complications. The patient was returned to the Radiology Outpatient Unit in stable condition. FINDINGS: CONCLUSION: 1. Uncomplicated CT guided biopsy of liver masses. Electronically signed by: Kapil Garza MD 03/01/2018 4:10 PM EDT
--- NOTE | 2018-03-01 16:56 | P.RAD ---
Post CT Procedure Prog Note - Pre Procedure Diagnosis (1) Liver metastasis - Post Procedure Diagnosis (1) Liver metastasis - Procedure Information Supervising Radiologist: Kapil Garza MD Proceduralist/Assist: patricia pike helen Estimated blood loss (mL): 0 Anesthesia: Conscious Sedation - Plan of Activity Patient to Unit: [facility] Patient condition: Good See PACS Report for procedural detail/treatment.
--- NOTE | 2018-03-02 05:57 | XR ---
EXAM DATE: 03/02/2018 5:51 AM EDT AGE/SEX: 67 years / Male INDICATIONS: Obstruction. CLINICAL DATA: This is the patient's subsequent encounter. Patient reports that signs and symptoms h ave been present for 4 - 6 days and indicates a pain score of 0/10. MEDICAL/SURGICAL HISTORY: None. . Mitral valve repair. COMPARISON: [facility] [place], CT NEEDLE BIOPSY LIVER, 03/01/2018. [facility], CT ABDOMEN & PELVIS W CONTRAST, 8. . FINDINGS: NG tube in satisfactory position. There are air and fluid-filled moderately distended loops of small bowel seen throughout the abdomen. Contrast media is noted in the urinary bladder. There is air seen within the colon. Osseous structures are intact. CONCLUSION: There are moderately distended small bowel loops again seen. Electronically signed by: Mykel Freeman MD 03/02/2018 5:56 AM EDT
[2018-03-02] MEDS: Senna/Docusate Sodium 8.6/50 MG Tablet PO SCH ×2 (08:12→20:43)
[2018-03-02 09:33] LABS: Hematocrit 31.6 % (39.0-51.0); Mean Corpuscular HGB Conc 31.7 % (32.0-36.0); Mean Corpuscular Hemoglobin 23.7 pg (27.0-34.0); Mean Corpuscular Volume 74.7 fL (80.0-100.0); Mean Platelet Volume 7.3 fL (7.0-11.0); Platelet Count 626 th/mm3 (150-450); Red Blood Count 4.23 mil/mm3 (4.50-5.90); Red Cell Distribution Width 15.7 % (11.6-17.2); White Blood Count 10.3 th/mm3 (4.0-11.0)
[2018-03-02 09:55] LABS: Albumin 2.2 g/dL (3.4-5.0); Anion Gap 14 meq/L (5-15); Aspartate Aminotransferase 39 U/L (15-37); Blood Urea Nitrogen 7 mg/dL (7-18); Calcium 8.2 mg/dL (8.5-10.1); Chloride 102 meq/L (98-107); Glomerular Filtration Rate Greater Than 89 mL/min (>89); Glucose,Random 81 mg/dL (74-106); Potassium 3.8 meq/L (3.5-5.1); Sodium 135 meq/L (136-145)
[2018-03-02 10:00] LABS: Alanine Aminotransferase 17 U/L (12-78); Alkaline Phosphatase 187 U/L (45-117); Total Protein 6.6 g/dL (6.4-8.2)
[2018-03-02] MEDS ORDERED: Phenol 1.4% 180 ML Spray Bottle OROPHARYNG PRN (10:32)
--- NOTE | 2018-03-02 10:42 | P.PNGS ---
<AddisonSandee - Last Filed: 03/02/18 10:36> Subjective Interval history: Lots of questions about what is going on; answered all questions that I could Understands that we need to wait on biopsies Physical Exam Vital signs: Vital Signs 03/01/18 12:00 03/01/18 15:58 03/01/18 16:22 Temperature 97.8 F 97.6 F Pulse Rate 68 77 80 Respiratory Rate 18 16 16 Blood Pressure 117/69 101/60 97/53 L Pulse Oximetry 100 94 L 97 03/01/18 16:32 03/01/18 16:59 03/01/18 17:09 Temperature 97.7 F Pulse Rate 76 87 75 Respiratory Rate 16 16 18 Blood Pressure 97/53 L 92/53 L 103/57 L Pulse Oximetry 96 97 100 03/01/18 20:00 03/02/18 00:00 03/02/18 04:00 Temperature 97.7 F 98.8 F 98.4 F Pulse Rate 79 80 81 Respiratory Rate 18 17 17 Blood Pressure 126/72 127/69 135/73 Pulse Oximetry 100 98 97 03/02/18 08:00 Temperature 98.2 F Pulse Rate 78 Respiratory Rate 20 Blood Pressure 120/72 Pulse Oximetry 99 Intake & Output 03/01/18 03/02/18 03/02/18 18:59 06:59 18:59 Intake Total 1000 / 1000 Output Total 1500 / 1500 Balance 1000 / 1000 -1500 / -1500 Intake: IV 1000 / 1000 NS Inj 1,000 ML @ 125 mls/hr IV 1000 / 1000 .CONT .Q8H [facility] Rx#:[id number] Output: Urine 500 / 500 Stool Amount (Stoma) 250 / 250 Left Upper Abdomen 250 / 250 Gastric Drainage 750 / 750 NG right nare 750 / 750 Other: # Voids 0 Date of Last Bowel Movement 03/02/18 03/02/18 # Bowel Movements 0 2 Narrative: Alert and awake Cardio: RRR Resp: CTAB Abd: distended; non tender NGT to LIWS Mild BLE edema Assessment and Plan - Assessment (1) Colon cancer Code(s): C18.9 - Malignant neoplasm of colon, unspecified Status: Suspected (2) Intestinal mass Code(s): K63.89 - Other specified diseases of intestine Status: Acute (3) Liver metastasis Code(s): C78.7 - Secondary malignant neoplasm of liver and intrahepatic bile duct Status: Acute (4) Hx of mitral valve repair Code(s): Z98.890 - Other specified postprocedural states Status: Acute - Plan 67 year old male with 1 week history of abdominal pain; CT findings of cecum mass; ? metastatic liver lesions -CT guided liver biopsy yesterday; awaiting pathology results -s/p tap water enema; GI planning for colonoscopy today to obtain biopsy -NPO -IVF -NGT to LIWS -Chloraseptic spray/lozenges available -Further recommendations once tissue diagnosis <Fede Patel - Last Filed: 03/02/18 17:38> Subjective Patient reports: no new complaints, feels better Interval history: DAILY PROGRESS NOTE FOR SURGICAL ATTENDING, DR. FEDE PATEL Physical Exam Vital signs: Vital Signs 03/01/18 20:00 03/02/18 00:00 03/02/18 04:00 Temperature 97.7 F 98.8 F 98.4 F Pulse Rate 79 80 81 Respiratory Rate 18 17 17 Blood Pressure 126/72 127/69 135/73 Pulse Oximetry 100 98 97 03/02/18 08:00 03/02/18 13:03 03/02/18 13:06 Temperature 98.2 F 99.3 F 99.3 F Pulse Rate 78 72 72 Respiratory Rate 20 18 18 Blood Pressure 120/72 114/59 L 114/59 L Pulse Oximetry 99 99 99 03/02/18 13:29 03/02/18 16:00 Temperature 98.9 F 98.2 F Pulse Rate 73 76 Respiratory Rate 18 18 Blood Pressure 136/71 138/75 Pulse Oximetry 99 100 Intake & Output 03/01/18 03/02/18 03/02/18 18:59 06:59 18:59 Intake Total 1000 / 1000 1000 / 1000 Output Total 1500 / 1500 Balance 1000 / 1000 -500 / -500 Intake: IV 1000 / 1000 1000 / 1000 NS Inj 1,000 ML @ 125 mls/hr IV 1000 / 1000 1000 / 1000 .CONT .Q8H [facility] Rx#:[id number] Output: Urine 500 / 500 Stool Amount (Stoma) 250 / 250 Left Upper Abdomen 250 / 250 Gastric Drainage 750 / 750 NG right nare 750 / 750 Other: # Voids 0 0 Date of Last Bowel Movement 03/02/18 03/02/18 # Bowel Movements 0 2 0 - Additional findings Additional findings: ITS Impressions Abdomen/Pelvis CT 02/28/18 18:47 CONCLUSION: 1. Irregular, large, malignant appearing mass of the cecum and terminal ileum with associated small bowel obstruction.. 2. Metastatic regional mesenteric nodules and/or lymph nodes in the right lower quadrant. 3. Widespread metastatic disease of the liver. 4. A subcentimeter nodule is seen in each visualized lung bases with very small bilateral effusions. 5. 5 mm sclerotic focus of the left sixth rib nonspecific but statistically most likely a benign bone island. Chest CT 03/01/18 00:00 CONCLUSION: 1. Multiple tiny 3 mm or less nodules in both lungs. Differential diagnosis is postinflammatory change or early metastatic disease. Trace pleural fluid. No adenopathy. Previous sternotomy with mitral valve replacement. Liver Biopsy CT 03/01/18 00:00 CONCLUSION: 1. Uncomplicated CT guided biopsy of liver masses. Abdomen X-Ray 03/02/18 00:00 CONCLUSION: There are moderately distended small bowel loops again seen. Laboratory Last Values CBC w Diff Auto diff final 02/28/18 19:00 WBC 10.3 th/mm3 (4.0-11.0) 08/07/18 08:45 RBC 4.23 mil/mm3 (4.50-5.90) L 03/02/18 08:45 Hgb 10.0 gm/dL (13.0-17.0) L 03/02/18 08:45 Hct 31.6 % (39.0-51.0) L 03/02/18 08:45 MCV 74.7 fL (80.0-100.0) L 03/02/18 08:45 MCH 23.7 pg (27.0-34.0) L 03/02/18 08:45 MCHC 31.7 % (32.0-36.0) L 03/02/18 08:45 RDW 15.7 % (11.6-17.2) 03/02/18 08:45 Plt Count 626 th/mm3 (150-450) H 03/02/18 08:45 MPV 7.3 fL (7.0-11.0) 03/02/18 08:45 Neut % (Auto) 73.7 % (16.0-70.0) H 03/01/18 06:11 Lymph % (Auto) 13.0 % (9.0-44.0) 03/01/18 06:11 [place] % (Auto) 11.8 % (0.0-8.0) H 03/01/18 06:11 Eos % (Auto) 1.1 % (0.0-4.0) 03/01/18 06:11 Baso % (Auto) 0.4 % (0.0-2.0) 03/01/18 06:11 Neut # (Auto) 6.8 th/mm3 (1.8-7.7) 03/01/18 06:11 Lymph # (Auto) 1.2 th/mm3 (1.0-4.8) 03/01/18 06:11 [place] # (Auto) 1.1 th/mm3 (0.0-0.9) H 03/01/18 06:11 Eos # (Auto) 0.1 th/mm3 (0.0-0.4) 03/01/18 06:11 Baso # (Auto) 0.0 th/mm3 (0.0-0.2) 03/01/18 06:11 WBC Differential . 03/01/18 06:11 Differential Comment Auto diff final 03/01/18 06:11 PT 12.7 sec (9.8-11.6) H 03/01/18 11:17 INR 1.3 Ratio 03/01/18 11:17 Sodium 135 meq/L (136-145) L 03/02/18 08:45 Potassium 3.8 meq/L (3.5-5.1) 03/02/18 08:45 Chloride 102 meq/L (98-107) 03/02/18 08:45 Carbon Dioxide 19.0 meq/L (21.0-32.0) L 03/02/18 08:45 Anion Gap 14 meq/L (5-15) 03/02/18 08:45 BUN 7 mg/dL (7-18) 03/02/18 08:45 Creatinine 0.56 mg/dL (0.60-1.30) L 03/02/18 08:45 Estimated GFR Greater than 89 mL/min (>89) 03/02/18 08:45 Random Glucose 81 mg/dL (74-106) 03/02/18 08:45 Calcium 8.2 mg/dL (8.5-10.1) L 03/02/18 08:45 Total Bilirubin 0.8 mg/dL (0.2-1.0) 03/02/18 08:45 AST 39 U/L (15-37) H 03/02/18 08:45 ALT 17 U/L (12-78) 03/02/18 08:45 Alkaline Phosphatase 187 U/L (45-117) H 03/02/18 08:45 Total Protein 6.6 g/dL (6.4-8.2) D 03/02/18 08:45 Albumin 2.2 g/dL (3.4-5.0) L 03/02/18 08:45 Lipase 82 U/L (73-393) 02/28/18 19:00 Tumor Marker AFP 2.7 ng/mL (0.5-8.0) 03/01/18 11:17 Carcinoembryonic Ag 4829.1 ng/mL (0.2-5.0) H 03/01/18 11:17 CA 19-9 Antigen 93829.0 U/mL (0.0-35.0) H 03/01/18 11:17 Hepatitis A IgM Ab Nonreactive (Nonreactive) 03/01/18 11:17 Hep Bs Antigen Nonreactive (Nonreactive) 03/01/18 11:17 Hep B Core IgM Ab Nonreactive (Nonreactive) 03/01/18 11:17 Hep C IgG Ab Nonreactive (Nonreactive) 03/01/18 11:17 Assessment and Plan - Assessment (1) Colon cancer Code(s): C18.9 - Malignant neoplasm of colon, unspecified Status: Chronic (2) Intestinal mass Code(s): K63.89 - Other specified diseases of intestine Status: Acute (3) Liver metastasis Code(s): C78.7 - Secondary malignant neoplasm of liver and intrahepatic bile duct Status: Acute (4) Hx of mitral valve repair Code(s): Z98.890 - Other specified postprocedural states Status: Acute - Attending Attestation NOTE FOR SURGICAL ATTENDING, DR. FEDE PATEL I discussed with Dr. Guillen after the colonoscopy Highly suspicious for malignancy We will start making arrangements for surgical resection Discussed laparoscopic assisted colon resection Discussed with the patient he appeared to understand I agree with above assessment and plan. The exam, history, and the medical decision-making described in the above note were completed with the assistance of the mid-level provider. I reviewed and agree with the findings presented. I attest that I had a [id number] encounter with the patient on the same day, and personally performed and documented my assessment and findings in the medical record. The following services were provided during this hospital visit: Chart data review, vital sign assessments/reviewing monitor data Review of consultations notes if present. Medication orders/review and/or management Ordering and/or reviewing lab tests Ordering and/or interpreting/reviewing x-rays and/or diagnostic studies Care of the patient and discussion of the patient with the care team Documentation time To help prompt me to consider important information that might be impacting today's encounter and assessment, Information from prior notes written by myself or my colleagues may have been "brought forward/copy and pasted" into today's note. <Sandee Jaime - Last Filed: 03/02/18 10:36> (1) Colon cancer Qualifiers: Colon location: ascending Qualified Code(s): C18.2 - Malignant neoplasm of ascending colon <Fede Patel - Last Filed: 03/02/18 17:38> (1) Colon cancer Qualifiers: Colon location: ascending Qualified Code(s): C18.2 - Malignant neoplasm of ascending colon
[2018-03-02] MEDS ORDERED: Lidocaine PF 1% Inj 5 ML Syringe INFILTRATN ONE (12:00)
[2018-03-02] MEDS ORDERED: fentaNYL Citrate Inj 100 MCG/2 ML Ampul ONE (12:16)
--- NOTE | 2018-03-02 12:54 | GIPROC ---
[facility] [address] [facility]. [facility], [address] COLONOSCOPY PROCEDURE REPORT EXAM DATE: 03/02/2018 PATIENT NAME: Richard Craig MR #: [id number] BIRTHDATE: 1950 ENDOSCOPIST: [place] Guillen MD ORDER #: [id number] MEMBER SERVICE REPRESENTATIVE: Liliana Altamirano Wilcox-Hassen, Alice, and Eleuterio Díaz STATUS: inpatient INDICATIONS: The patient is a 67 yr old male here for a colonoscopy due to abnormal ct , bowel obstruction PROCEDURE PERFORMED: clip appliance MEDICATIONS: None and Per Anesthesia. PREP QUALITY: suboptimal PREP TYPE:Other: ESTIMATED BLOOD LOSS: None CONSENT: The patient understands the risks and benefits of the procedure and understands that these risks include, but are not limited to: sedation, allergic reaction, infection, perforation and/or bleeding. Alternative means of evaluation and treatment include, among others: physical exam, x-rays, and/or surgical intervention. The patient elects to proceed with this endoscopic procedure. medical equipment was checked for proper function. Hand hygiene and appropriate measures for infection prevention was taken. After the risks, benefits and alternatives of the procedure were thoroughly explained, Informed consent was verified, confirmed and timeout was successfully executed by the treatment team. A digital exam revealed external hemorrhoids The endoscope was introduced through the anus and advanced to the cecum. The instrument was then slowly withdrawn as the colon was fully examined. COLON FINDINGS: Obstructing mass cecum -biopsy pedunculated polyp midtransverse 2 cm-hot snare polypectomy with complete removal, polyp pulled with net, 2 clips applied on the stalk to prevent bleeding, james ink tattoo 5 cc injected. Retroflexed views revealed internal hemorrhoids The scope was then completely withdrawn from the patient and the procedure terminated. PROCEDURE WITHDRAWAL TIME:10minutes ADVERSE EVENTS: There were no complications. IMPRESSIONS: 1. Obstructing mass cecum -biopsy pedunculated polyp midtransverse 2 cm-hot snare polypectomy with complete removal, polyp pulled with net, 2 clips applied on the stalk to prevent bleeding, james ink tattoo 5 cc injected 2. Retroflexed views revealed internal hemorrhoids 3. Revealed external hemorrhoids RECOMMENDATIONS: 1. Await biopsy results. Biopsy results will not be ready for 7-10 days. If you don't hear from us in two weeks, call our office for results. 2. Npo except medications ngt await path report surgical consult oncology consult once pathology resulted family screening for colon cancer RECALL: Return 1 month Colonoscopy Florida Guillen MD eSigned: [place] Guillen MD 03/02/2018 12:54 PM cc: PATIENT NAME: Rafa Richard J MR#: [id number]
[2018-03-02] MEDS: Sod Chloride 0.9% Inj 1,000 ML IV.CONT SCH ×4 (13:28→20:41)
--- NOTE | 2018-03-02 13:39 | P.PN ---
Subjective Interval history: Pt seen and examined. AFVSS. NG tube placed overnight. Recently back from colonoscopy. present at the bedside. Pt feeling down and overwhelmed. Anxious about waiting for biopsy. States he passed gas after the colonoscopy. No BM. Pain is controlled. Physical Exam Vital signs: Vital Signs 03/01/18 15:58 03/01/18 16:22 03/01/18 16:32 Temperature 97.6 F Pulse Rate 77 80 76 Respiratory Rate 16 16 16 Blood Pressure 101/60 97/53 L 97/53 L Pulse Oximetry 94 L 97 96 03/01/18 16:59 03/01/18 17:09 03/01/18 20:00 Temperature 97.7 F 97.7 F Pulse Rate 87 75 79 Respiratory Rate 16 18 18 Blood Pressure 92/53 L 103/57 L 126/72 Pulse Oximetry 97 100 100 03/02/18 00:00 03/02/18 04:00 03/02/18 08:00 Temperature 98.8 F 98.4 F 98.2 F Pulse Rate 80 81 78 Respiratory Rate 17 17 20 Blood Pressure 127/69 135/73 120/72 Pulse Oximetry 98 97 99 03/02/18 13:03 03/02/18 13:06 03/02/18 13:29 Temperature 99.3 F 99.3 F 98.9 F Pulse Rate 72 72 73 Respiratory Rate 18 18 18 Blood Pressure 114/59 L 114/59 L 136/71 Pulse Oximetry 99 99 99 Intake & Output 03/01/18 03/02/18 03/02/18 18:59 06:59 18:59 Intake Total 1000 / 1000 1000 / 1000 Output Total 1500 / 1500 Balance 1000 / 1000 -500 / -500 Intake: IV 1000 / 1000 1000 / 1000 NS Inj 1,000 ML @ 125 mls/hr IV 1000 / 1000 1000 / 1000 .CONT .Q8H [facility] Rx#:[id number] Output: Urine 500 / 500 Stool Amount (Stoma) 250 / 250 Left Upper Abdomen 250 / 250 Gastric Drainage 750 / 750 NG right nare 750 / 750 Other: # Voids 0 Date of Last Bowel Movement 03/02/18 03/02/18 # Bowel Movements 0 2 Narrative: GENERAL: WN, WD male resting in bed in NAD. SKIN: Warm and dry. HEENT: NGT in place with 600 cc light brown output. HEART: RRR no m/r/g. LUNGS: CTAB without wheezes or crackles. ABDOMEN: Hypoactive BS. Distended abdomen, mild LUQ TTP. EXTREMITIES: No LE edema. 2+ pedal pulses. NEURO: Awake and alert. PSYCH: Appropriate mood and affect. Results - Labs CBC & Chem 7: 03/02/18 08:45 03/02/18 08:45 Laboratory Results - last 24 hr 03/01/18 03/01/18 03/02/18 11:17 11:17 08:45 WBC 10.3 RBC 4.23 L Hgb 10.0 L Hct 31.6 L MCV 74.7 L MCH 23.7 L MCHC 31.7 L RDW 15.7 Plt Count 626 H MPV 7.3 Sodium Potassium Chloride Carbon Dioxide Anion Gap BUN Creatinine Estimated GFR Random Glucose Calcium Total Bilirubin AST ALT Alkaline Phosphatase Total Protein Albumin CA 19-9 Antigen 70588.0 H Hepatitis A IgM Ab Nonreactive Hep Bs Antigen Nonreactive Hep B Core IgM Ab Nonreactive Hep C IgG Ab Nonreactive 03/02/18 08:45 WBC RBC Hgb Hct MCV MCH MCHC RDW Plt Count MPV Sodium 135 L Potassium 3.8 Chloride 102 Carbon Dioxide 19.0 L Anion Gap 14 BUN 7 Creatinine 0.56 L Estimated GFR Greater than 89 Random Glucose 81 Calcium 8.2 L Total Bilirubin 0.8 AST 39 H ALT 17 Alkaline Phosphatase 187 H Total Protein 6.6 D Albumin 2.2 L CA 19-9 Antigen Hepatitis A IgM Ab Hep Bs Antigen Hep B Core IgM Ab Hep C IgG Ab - Imaging Impressions Chest CT 03/01/18 00:00 CONCLUSION: 1. Multiple tiny 3 mm or less nodules in both lungs. Differential diagnosis is postinflammatory change or early metastatic disease. Trace pleural fluid. No adenopathy. Previous sternotomy with mitral valve replacement. Liver Biopsy CT 03/01/18 00:00 CONCLUSION: 1. Uncomplicated CT guided biopsy of liver masses. Abdomen X-Ray 03/02/18 00:00 CONCLUSION: There are moderately distended small bowel loops again seen. Assessment and Plan - Assessment (1) Intestinal mass Code(s): K63.89 - Other specified diseases of intestine Status: Acute (2) Liver metastasis Code(s): C78.7 - Secondary malignant neoplasm of liver and intrahepatic bile duct Status: Acute (3) Lung nodules Code(s): R91.8 - Other nonspecific abnormal finding of lung field Status: Acute (4) SBO (small bowel obstruction) Code(s): K56.609 - Unspecified intestinal obstruction, unspecified as to partial versus complete obstruction Status: Acute - Plan 67 year old male with history of mitral valve replacement admitted 02/28 for abdominal pain. On CT, he was found to have a mass on the cecum and terminal ileum along with widespread metastatic lesions on the liver. 1. Intestinal mass with liver mets - CT A/P showing an irregular, large, malignant appearing mass of the cecum and terminal ileum with associated SBO. There is also metastatic regional mesenteric nodules and/or lymph node in the RLQ as well as widespread liver mets - Alkaline phosphatase elevated - Mild AST elevation, likely secondary to chronic EtOH use vs. liver mets - GI and general surgery consulted - S/p CT-guided biopsy of liver 03/01. Pathology pending - S/p colonoscopy 03/02 showing an obstructing cecal mass and a pedunculated midtransverse polyp that was removed. Biopsies pending - CEA and CA19-9 extremely elevated - Will await path results prior to consulting oncology 2. SBO - Patient with no BM or flatus x 1 week and large cecal/terminal ileum mass - NGT to LIS - Pain control - NPO - OOB - NS at 100 ml/hr - Incentive spirometer 3. Lung nodules - Visualized on CT A/P - CT chest showing multiple tiny nodules, either inflammatory or early mets - History of tobacco abuse >20 years ago - Supplemental O2 to maintain sats >92% 4. Anemia - Likely secondary to intestinal mass - Hemodynamically stable - Continue to monitor - Transfuse if Hb <7 or symptomatic 5. History of mitral valve replacement - Monitor BP - No signs of CHF DVT prophylaxis: SCDs, resume heparin this evening Discussed Condition With: Patient and his
[2018-03-02] MEDS ORDERED: Chlorhexidine Gluconate 2% 1 Pack (2 Cloths) TOPICAL SCH (20:15)
[2018-03-02] MEDS ORDERED: Metoprolol Tartrate 25 MG Tablet PO SCH (20:15)
[2018-03-02] MEDS: Heparin - SQ 10,000 UNITS/ML Vial SQ SCH (20:42)
[2018-03-02] MEDS ORDERED: Sodium Chlor 0.9% Inj 500 ML IV.SIG SCH (21:00)
--- NOTE | 2018-03-02 23:01 | ECG ---
Date Performed: 03/02/2018 Time Performed: 11:04:46 PTAGE: 67 years EKG: Sinus rhythm MODERATE INTRAVENTRICULAR CONDUCTION DELAY ABNORMAL ECG NO PREVIOUS TRACING DOCTOR: Edu Chou Interpretating Date/Time 03/02/2018 23:00:40
[2018-03-03] MEDS: Sod Chloride 0.9% Inj 1,000 ML IV.CONT SCH ×4 (06:06→20:34)
[2018-03-03 06:36] LABS: Hematocrit 29.6 % (39.0-51.0); Hemoglobin 9.6 gm/dL (13.0-17.0); Mean Corpuscular HGB Conc 32.5 % (32.0-36.0); Mean Corpuscular Hemoglobin 24.2 pg (27.0-34.0); Mean Corpuscular Volume 74.5 fL (80.0-100.0); Mean Platelet Volume 7.2 fL (7.0-11.0); Platelet Count 574 th/mm3 (150-450); Red Blood Count 3.97 mil/mm3 (4.50-5.90); Red Cell Distribution Width 15.7 % (11.6-17.2); White Blood Count 11.8 th/mm3 (4.0-11.0)
[2018-03-03 06:55] LABS: Anion Gap 14 meq/L (5-15); Blood Urea Nitrogen 5 mg/dL (7-18); Calcium 8.7 mg/dL (8.5-10.1); Carbon Dioxide 20.8 meq/L (21.0-32.0); Chloride 101 meq/L (98-107); Glomerular Filtration Rate Greater Than 89 mL/min (>89); Glucose,Random 87 mg/dL (74-106); Potassium 3.8 meq/L (3.5-5.1); Sodium 136 meq/L (136-145)
[2018-03-03] MEDS: Senna/Docusate Sodium 8.6/50 MG Tablet PO SCH ×2 (08:42→20:34)
--- NOTE | 2018-03-03 10:39 | P.PNGI ---
Subjective Interval history: Pt resting in bed. Denies any nausea or vomiting. NG to LIWS with 400 mL of brown colored drainage. Pt reports he is passing gas and has had some diarrhea. Abdomen remains distended. States he is having colon resection with possible small bowel resection done later today. Physical Exam Vital signs: Vital Signs 03/02/18 13:03 03/02/18 13:06 03/02/18 13:29 Temperature 99.3 F 99.3 F 98.9 F Pulse Rate 72 72 73 Respiratory Rate 18 18 18 Blood Pressure 114/59 L 114/59 L 136/71 Pulse Oximetry 99 99 99 03/02/18 16:00 03/02/18 20:00 03/03/18 00:00 Temperature 98.2 F 100.3 F H 99.1 F Pulse Rate 76 84 99 H Respiratory Rate 18 17 17 Blood Pressure 138/75 130/83 131/69 Pulse Oximetry 100 98 96 03/03/18 04:00 03/03/18 08:00 Temperature 98.1 F 98.7 F Pulse Rate 74 58 L Respiratory Rate 18 17 Blood Pressure 125/64 130/71 Pulse Oximetry 99 95 Intake & Output 03/02/18 03/03/18 03/03/18 18:59 06:59 18:59 Intake Total 2500 / 2500 Output Total 600 / 600 300 / 300 Balance -600 / -600 2500 / 2500 -300 / -300 Weight 101 kg Intake: IV 1999 NS Inj 1,000 ML @ 125 mls/hr IV 1999 .CONT .Q8H [facility] Rx#:[id number] Oral 500 / 500 Output: Gastric Drainage 600 / 600 300 / 300 NG right nare 600 / 600 300 / 300 Other: # Voids 0 1 Date of Last Bowel Movement 03/02/18 03/02/18 # Bowel Movements 0 - Constitutional no acute distress - Routine HEENT Exam Head: Present: normocephalic, atraumatic - Routine Respiratory Exam Absent: accessory muscle use - Routine Abdominal Exam Present: normoactive bowel sounds, distended, firm. Absent: tenderness - Routine Skin Exam Present: dry, warm - Routine Neurological Exam Present: alert, oriented X3 Results - Labs CBC & Chem 7: 03/03/18 06:10 03/03/18 06:10 Laboratory Results - last 24 hr 03/03/18 03/03/18 06:10 06:10 WBC 11.8 H RBC 3.97 L Hgb 9.6 L Hct 29.6 L MCV 74.5 L MCH 24.2 L MCHC 32.5 RDW 15.7 Plt Count 574 H MPV 7.2 Sodium 136 Potassium 3.8 Chloride 101 Carbon Dioxide 20.8 L Anion Gap 14 BUN 5 L Creatinine 0.50 L Estimated GFR Greater than 89 Random Glucose 87 Calcium 8.7 Assessment and Plan - Plan Assessment: - Abdominal pain, LUQ, constant, described as soreness with sharp pains every 3- 4 minutes. Associated abdominal swelling over past week. No BM in one week, prior to this reports having BMs every other day. Also reports a 10 lb weight loss over the past few weeks, but states he was trying to lose weight. Denies nausea, vomiting, heartburn. ? Family history of colon cancer- father. Has never had EGD or colonoscopy Ct abdomen and pelvis W IV contrast (02/28) --> Irregular, large, malignant appearing mass of the cecum and terminal ileum with associated small bowel obstruction. Metastatic regional mesenteric nodules and /or lymph nodes in the right lower quadrant. Widespread metastatic disease of the liver. A subcentimeter nodule is seen in each visualized lung bases with very small bilateral effusions. 5 mm sclerotic focus of the left sixth rib nonspecific but statistically most likely a benign bone island. [id number] CA 19-9 [id number] AFP-2.7 - Anemia- possibly secondary to above - Previous ETOH abuse- states quit drinking alcohol 2 weeks ago. Prior to this was drinking on a daily basis, states a few drinks a day but more on the weekends. Reports more vodka then beer. (03/03) Abdomen remains distended. NG to LIWS with 400 mL of brown colored output. Pt reports he is passing gas and has had some diarrhea. S/P colonoscopy yesterday --> Obstructing mass cecum -biopsy. Pedunculated polyp midtransverse 2 cm- hot snare polypectomy with complete removal, polyp pulled with net, 2 clips applied on the stalk to prevent bleeding, james ink tattoo 5 cc injected. Internal and external hemorrhoids Colon mass and liver biopsy pending. Pt going for laparotomy with possible ascending colon resection and possible small bowel resection today Plan: Colon and liver biopsy pending Surgery today Oncology consult pending pathology results Our service will sign off, please reconsult as needed Have pt follow up with GI after DC Pt has been seen and examined by myself and Dr. Guillen and this note is written on her behalf
--- NOTE | 2018-03-03 11:30 | P.PNIM ---
Subjective Interval history: Reports NG tube uncomfortable would like to see it out sooner than later. Abdominal discomfort persists. Passing gas. No bowel movement. No vomiting. No fevers or chills. Physical Exam Vital signs: Vital Signs 03/02/18 13:03 03/02/18 13:06 03/02/18 13:29 Temperature 99.3 F 99.3 F 98.9 F Pulse Rate 72 72 73 Respiratory Rate 18 18 18 Blood Pressure 114/59 L 114/59 L 136/71 Pulse Oximetry 99 99 99 03/02/18 16:00 03/02/18 20:00 03/03/18 00:00 Temperature 98.2 F 100.3 F H 99.1 F Pulse Rate 76 84 99 H Respiratory Rate 18 17 17 Blood Pressure 138/75 130/83 131/69 Pulse Oximetry 100 98 96 03/03/18 04:00 03/03/18 08:00 Temperature 98.1 F 98.7 F Pulse Rate 74 58 L Respiratory Rate 18 17 Blood Pressure 125/64 130/71 Pulse Oximetry 99 95 Intake & Output 03/02/18 03/03/18 03/03/18 18:59 06:59 18:59 Intake Total 2500 / 2500 Output Total 600 / 600 300 / 300 Balance -600 / -600 2500 / 2500 -300 / -300 Weight 101 kg Intake: IV 1999 NS Inj 1,000 ML @ 125 mls/hr IV 1999 .CONT .Q8H [facility] Rx#:[id number] Oral 500 / 500 Output: Gastric Drainage 600 / 600 300 / 300 NG right nare 600 / 600 300 / 300 Other: # Voids 0 1 Date of Last Bowel Movement 03/02/18 03/02/18 # Bowel Movements 0 Narrative: GENERAL: WN, WD male resting in bed in [facility]. SKIN: Warm and dry. HEENT: NGT in place on suction HEART: RRR no m/r/g. LUNGS: CTAB without wheezes or crackles. ABDOMEN: Good bowel sounds distended abdomen, non-tender EXTREMITIES: No LE edema. NEURO: Awake and alert. PSYCH: Appropriate mood and affect. Results - Labs CBC & Chem 7: 03/03/18 06:10 03/03/18 06:10 Laboratory Results - last 24 hr 03/03/18 03/03/18 06:10 06:10 WBC 11.8 H RBC 3.97 L Hgb 9.6 L Hct 29.6 L MCV 74.5 L MCH 24.2 L MCHC 32.5 RDW 15.7 Plt Count 574 H MPV 7.2 Sodium 136 Potassium 3.8 Chloride 101 Carbon Dioxide 20.8 L Anion Gap 14 BUN 5 L Creatinine 0.50 L Estimated GFR Greater than 89 Random Glucose 87 Calcium 8.7 Assessment and Plan - Assessment (1) Intestinal mass Code(s): K63.89 - Other specified diseases of intestine Status: Acute (2) Liver metastasis Code(s): C78.7 - Secondary malignant neoplasm of liver and intrahepatic bile duct Status: Acute (3) Lung nodules Code(s): R91.8 - Other nonspecific abnormal finding of lung field Status: Acute (4) SBO (small bowel obstruction) Code(s): K56.609 - Unspecified intestinal obstruction, unspecified as to partial versus complete obstruction Status: Acute - Plan 67 year old male with history of mitral valve replacement admitted 02/28 for abdominal pain. On CT, he was found to have a mass on the cecum and terminal ileum along with widespread metastatic lesions on the liver. 1. Intestinal mass with liver mets - CT A/P showing an irregular, large, malignant appearing mass of the cecum and terminal ileum with associated SBO. There is also metastatic regional mesenteric nodules and/or lymph node in the RLQ as well as widespread liver mets - Alkaline phosphatase elevated - Mild AST elevation, likely secondary to chronic EtOH use vs. liver mets - GI and general surgery consulted - S/p CT-guided biopsy of liver 03/01. Pathology pending - S/p colonoscopy 03/02 showing an obstructing cecal mass and a pedunculated midtransverse polyp that was removed. Biopsies pending - CEA and CA19-9 extremely elevated - Will await path results 2. SBO - NGT to LIS - Pain control - NPO - OOB - NS at 100 ml/hr - Incentive spirometer Further management per general surgery. 3. Lung nodules - Visualized on CT A/P - CT chest showing multiple tiny nodules, either inflammatory or early mets - History of tobacco abuse >20 years ago - Supplemental O2 to maintain sats >92% Follow-up as an outpatient. 4. Anemia, acute on chronic - Likely secondary to intestinal mass - Hemodynamically stable - Continue to monitor - Transfuse if Hb <7 or symptomatic 5. History of mitral valve replacement - Monitor BP - No signs of CHF DVT prophylaxis: SCDs, resume heparin
--- NOTE | 2018-03-03 15:17 | P.PNGS ---
<Sandee Jaime - Last Filed: 03/03/18 15:14> Subjective Interval history: Resting in bed; aggravated with NGT Physical Exam Vital signs: Vital Signs 03/02/18 16:00 03/02/18 20:00 03/03/18 00:00 Temperature 98.2 F 100.3 F H 99.1 F Pulse Rate 76 84 99 H Respiratory Rate 18 17 17 Blood Pressure 138/75 130/83 131/69 Pulse Oximetry 100 98 96 03/03/18 04:00 03/03/18 08:00 03/03/18 12:00 Temperature 98.1 F 98.7 F 97.9 F Pulse Rate 74 58 L 83 Respiratory Rate 18 17 18 Blood Pressure 125/64 130/71 114/65 Pulse Oximetry 99 95 97 Intake & Output 03/02/18 03/03/18 03/03/18 18:59 06:59 18:59 Intake Total 2500 / 2500 1000 / 1000 Output Total 600 / 600 300 / 300 Balance -600 / -600 2500 / 2500 700 / 700 Weight 101 kg Intake: IV 1999 / 1999 1000 / 1000 NS Inj 1,000 ML @ 125 mls/hr IV 1999 / 1999 1000 / 1000 .CONT .Q8H [facility] Rx#:[id number] Oral 500 / 500 Output: Gastric Drainage 600 / 600 300 / 300 NG right nare 600 / 600 300 / 300 Other: # Voids 0 1 Date of Last Bowel Movement 03/02/18 03/02/18 03/02/18 # Bowel Movements 0 Narrative: Alert and awake Cardio: RRR R Resp: CTAB Abd: distended; minimally tender NGT to LIWS Assessment and Plan - Assessment (1) Colon cancer Code(s): C18.9 - Malignant neoplasm of colon, unspecified Status: Chronic (2) Intestinal mass Code(s): K63.89 - Other specified diseases of intestine Status: Acute (3) Liver metastasis Code(s): C78.7 - Secondary malignant neoplasm of liver and intrahepatic bile duct Status: Acute (4) Hx of mitral valve repair Code(s): Z98.890 - Other specified postprocedural states Status: Acute - Plan 67 year old male with 1 week history of abdominal pain; CT findings of cecum mass; ? metastatic liver lesions -s/p CT guided liver biopsy; awaiting pathology results -s/p colonoscopy; awaiting pathology -NPO -IVF -NGT to VINICIO -Chloraseptic spray/lozenges available -Will plan for laparoscopic possible open ascending colectomy tomorrow in the OR -Obtain consents <Fede Patel - Last Filed: 03/03/18 16:23> Subjective Interval history: DAILY PROGRESS NOTE FOR SURGICAL ATTENDING, DR. FEDE PATEL Patient states he had some flatus feels better Physical Exam Vital signs: Vital Signs 03/02/18 20:00 03/03/18 00:00 03/03/18 04:00 Temperature 100.3 F H 99.1 F 98.1 F Pulse Rate 84 99 H 74 Respiratory Rate 17 17 18 Blood Pressure 130/83 131/69 125/64 Pulse Oximetry 98 96 99 03/03/18 08:00 03/03/18 12:00 Temperature 98.7 F 97.9 F Pulse Rate 58 L 83 Respiratory Rate 17 18 Blood Pressure 130/71 114/65 Pulse Oximetry 95 97 Intake & Output 03/02/18 03/03/18 03/03/18 18:59 06:59 18:59 Intake Total 2500 / 2500 1000 / 1000 Output Total 600 / 600 300 / 300 Balance -600 / -600 2500 / 2500 700 / 700 Weight 101 kg Intake: IV 1999 1000 / 1000 NS Inj 1,000 ML @ 125 mls/hr IV 1999 1000 / 1000 .CONT .Q8H [facility] Rx#:[id number] Oral 500 / 500 Output: Gastric Drainage 600 / 600 300 / 300 NG right nare 600 / 600 300 / 300 Other: # Voids 0 1 Date of Last Bowel Movement 03/02/18 03/02/18 03/02/18 # Bowel Movements 0 - Additional findings Additional findings: Laboratory Last Values CBC w Diff Auto diff final 02/28/18 19:00 WBC 11.8 th/mm3 (4.0-11.0) H 03/03/18 06:10 RBC 3.97 mil/mm3 (4.50-5.90) L 03/03/18 06:10 Hgb 9.6 gm/dL (13.0-17.0) L 03/03/18 06:10 Hct 29.6 % (39.0-51.0) L 03/03/18 06:10 MCV 74.5 fL (80.0-100.0) L 03/03/18 06:10 MCH 24.2 pg (27.0-34.0) L 03/03/18 06:10 MCHC 32.5 % (32.0-36.0) 03/03/18 06:10 RDW 15.7 % (11.6-17.2) 03/03/18 06:10 Plt Count 574 th/mm3 (150-450) H 03/03/18 06:10 MPV 7.2 fL (7.0-11.0) 03/03/18 06:10 Neut % (Auto) 73.7 % (16.0-70.0) H 03/01/18 06:11 Lymph % (Auto) 13.0 % (9.0-44.0) 03/01/18 06:11 [place] % (Auto) 11.8 % (0.0-8.0) H 03/01/18 06:11 Eos % (Auto) 1.1 % (0.0-4.0) 03/01/18 06:11 Baso % (Auto) 0.4 % (0.0-2.0) 03/01/18 06:11 Neut # (Auto) 6.8 th/mm3 (1.8-7.7) 03/01/18 06:11 Lymph # (Auto) 1.2 th/mm3 (1.0-4.8) 03/01/18 06:11 [place] # (Auto) 1.1 th/mm3 (0.0-0.9) H 03/01/18 06:11 Eos # (Auto) 0.1 th/mm3 (0.0-0.4) 03/01/18 06:11 Baso # (Auto) 0.0 th/mm3 (0.0-0.2) 03/01/18 06:11 WBC Differential . 03/01/18 06:11 Differential Comment Auto diff final 03/01/18 06:11 PT 12.7 sec (9.8-11.6) H 03/01/18 11:17 INR 1.3 Ratio 03/01/18 11:17 Sodium 136 meq/L (136-145) 03/03/18 06:10 Potassium 3.8 meq/L (3.5-5.1) 03/03/18 06:10 Chloride 101 meq/L (98-107) 03/03/18 06:10 Carbon Dioxide 20.8 meq/L (21.0-32.0) L 03/03/18 06:10 Anion Gap 14 meq/L (5-15) 03/03/18 06:10 BUN 5 mg/dL (7-18) L 03/03/18 06:10 Creatinine 0.50 mg/dL (0.60-1.30) L 03/03/18 06:10 Estimated GFR Greater than 89 mL/min (>89) 03/03/18 06:10 Random Glucose 87 mg/dL (74-106) 03/03/18 06:10 Calcium 8.7 mg/dL (8.5-10.1) 03/03/18 06:10 Total Bilirubin 0.8 mg/dL (0.2-1.0) 03/02/18 08:45 AST 39 U/L (15-37) H 03/02/18 08:45 ALT 17 U/L (12-78) 03/02/18 08:45 Alkaline Phosphatase 187 U/L (45-117) H 03/02/18 08:45 Total Protein 6.6 g/dL (6.4-8.2) D 03/02/18 08:45 Albumin 2.2 g/dL (3.4-5.0) L 03/02/18 08:45 Lipase 82 U/L (73-393) 02/28/18 19:00 Tumor Marker AFP 2.7 ng/mL (0.5-8.0) 03/01/18 11:17 Carcinoembryonic Ag 4829.1 ng/mL (0.2-5.0) H 03/01/18 11:17 CA 19-9 Antigen 15419.0 U/mL (0.0-35.0) H 03/01/18 11:17 Hepatitis A IgM Ab Nonreactive (Nonreactive) 03/01/18 11:17 Hep Bs Antigen Nonreactive (Nonreactive) 03/01/18 11:17 Hep B Core IgM Ab Nonreactive (Nonreactive) 03/01/18 11:17 Hep C IgG Ab Nonreactive (Nonreactive) 03/01/18 11:17 ITS Impressions Abdomen/Pelvis CT 02/28/18 18:47 CONCLUSION: 1. Irregular, large, malignant appearing mass of the cecum and terminal ileum with associated small bowel obstruction.. 2. Metastatic regional mesenteric nodules and/or lymph nodes in the right lower quadrant. 3. Widespread metastatic disease of the liver. 4. A subcentimeter nodule is seen in each visualized lung bases with very small bilateral effusions. 5. 5 mm sclerotic focus of the left sixth rib nonspecific but statistically most likely a benign bone island. Chest CT 03/01/18 00:00 CONCLUSION: 1. Multiple tiny 3 mm or less nodules in both lungs. Differential diagnosis is postinflammatory change or early metastatic disease. Trace pleural fluid. No adenopathy. Previous sternotomy with mitral valve replacement. Liver Biopsy CT 03/01/18 00:00 CONCLUSION: 1. Uncomplicated CT guided biopsy of liver masses. Abdomen X-Ray 03/02/18 00:00 CONCLUSION: There are moderately distended small bowel loops again seen. Assessment and Plan - Assessment (1) Colon cancer Code(s): C18.9 - Malignant neoplasm of colon, unspecified Status: Chronic (2) Intestinal mass Code(s): K63.89 - Other specified diseases of intestine Status: Acute (3) Liver metastasis Code(s): C78.7 - Secondary malignant neoplasm of liver and intrahepatic bile duct Status: Acute (4) Hx of mitral valve repair Code(s): Z98.890 - Other specified postprocedural states Status: Acute - Attending Attestation NOTE FOR SURGICAL ATTENDING, DR. FEDE PATEL I agree with above assessment and plan. The exam, history, and the medical decision-making described in the above note were completed with the assistance of the mid-level provider. I reviewed and agree with the findings presented. I attest that I had a [id number] encounter with the patient on the same day, and personally performed and documented my assessment and findings in the medical record. The following services were provided during this hospital visit: Chart data review, vital sign assessments/reviewing monitor data Review of consultations notes if present. Medication orders/review and/or management Ordering and/or reviewing lab tests Ordering and/or interpreting/reviewing x-rays and/or diagnostic studies Care of the patient and discussion of the patient with the care team Documentation time To help prompt me to consider important information that might be impacting today's encounter and assessment, Information from prior notes written by myself or my colleagues may have been "brought forward/copy and pasted" into today's note. <Sandee Jaime - Last Filed: 03/03/18 15:14> (1) Colon cancer Qualifiers: Colon location: ascending Qualified Code(s): C18.2 - Malignant neoplasm of ascending colon <Fede Patel - Last Filed: 03/03/18 16:23> (1) Colon cancer Qualifiers: Colon location: ascending Qualified Code(s): C18.2 - Malignant neoplasm of ascending colon
[2018-03-04] MEDS ORDERED: ceFAZolin 2 GM Premix Inj 2 GM/50 ML PIGGYBACK IV.SIG ONE (09:47)
[2018-03-04] MEDS: Senna/Docusate Sodium 8.6/50 MG Tablet PO SCH (10:03)
[2018-03-04 11:27] LABS: Baso % (Auto) 0.5 % (0.0-2.0); Eos # (Auto) 0.2 th/mm3 (0.0-0.4); Eos % (Auto) 1.5 % (0.0-4.0); Hematocrit 28.9 % (39.0-51.0); Hemoglobin 9.4 gm/dL (13.0-17.0); Lymph % (Auto) 9.6 % (9.0-44.0); Mean Corpuscular HGB Conc 32.4 % (32.0-36.0); Mean Corpuscular Hemoglobin 24.4 pg (27.0-34.0); Mean Corpuscular Volume 75.3 fL (80.0-100.0); Mean Platelet Volume 6.9 fL (7.0-11.0); Mono # (Auto) 0.9 th/mm3 (0.0-0.9); Mono % (Auto) 8.6 % (0.0-8.0); Neut # (Auto) 8.4 th/mm3 (1.8-7.7); Neut % (Auto) 79.8 % (16.0-70.0); Platelet Count 595 th/mm3 (150-450); Red Blood Count 3.84 mil/mm3 (4.50-5.90); Red Cell Distribution Width 15.6 % (11.6-17.2); White Blood Count 10.5 th/mm3 (4.0-11.0)
[2018-03-04 11:37] LABS: Anion Gap 11 meq/L (5-15); Blood Urea Nitrogen 3 mg/dL (7-18); Calcium 8.5 mg/dL (8.5-10.1); Carbon Dioxide 23.1 meq/L (21.0-32.0); Chloride 105 meq/L (98-107); Glomerular Filtration Rate Greater Than 89 mL/min (>89); Glucose,Random 93 mg/dL (74-106); Potassium 3.9 meq/L (3.5-5.1); Sodium 139 meq/L (136-145)
[2018-03-04] MEDS: ceFAZolin 2 GM/NS 100 ML IV; Q8H IV.SIG ONE ×6 (11:39→19:31)
[2018-03-04] MEDS ORDERED: Lidocaine PF 1% Inj 5 ML Syringe INFILTRATN ONE (12:00)
[2018-03-04] MEDS ORDERED: Sugammadex Inj 200 MG/2 ML Vial IV.PUSH ONE ×2 (12:00→14:09)
[2018-03-04] MEDS ORDERED: Neostigmine Inj 5 MG/5 ML Syringe IV.PUSH ONE (12:00)
[2018-03-04] MEDS ORDERED: Glycopyrrolate Inj 1 MG/5 ML Syringe IV.PUSH ONE (12:00)
[2018-03-04] MEDS: Bupivacaine/Epinephrine Inj 0.25% 50 ML Vial ONE ×2 (12:24→19:31)
[2018-03-04] MEDS: Sod Chloride 0.9% Inj 1,000 ML IV.CONT SCH ×2 (13:39→22:08)
[2018-03-04] MEDS ORDERED: Naloxone Inj 0.4 MG/ML Vial IV.PUSH PRN (14:27)
[2018-03-04] MEDS ORDERED: *morphine SULFATE 4 MG/ML PERIprocedure ONLY ONE (14:30)
[2018-03-04] MEDS ORDERED: Morphine Inj 4 MG/ML Vial ONE (14:32)
[2018-03-04] MEDS ORDERED: fentaNYL Citrate Inj 100 MCG/2 ML Ampul ONE (14:32)
[2018-03-04] MEDS ORDERED: HYDROmorphone PF Inj 2 MG/ML Vial ONE (14:42)
[2018-03-04] MEDS ORDERED: Post-op Orders (for Pharmacy) OTHER ONE (15:00)
[2018-03-04] MEDS ORDERED: HYDROmorphone PF Inj 2 MG/ML Vial IV.PUSH PRN (15:00)
[2018-03-04] MEDS: HYDROmorphone PCA Inj 6 MG/30 ML PCA.VIAL PCA PRN (15:20)
--- NOTE | 2018-03-04 17:45 | P.PNIM ---
Subjective Interval history: Patient just returned from surgery. Alittle sleepy but denies any pain, states he is much better from getting the NGT out. No chest pain or SOB. Surgical dressing in place with abdominal binder. Physical Exam Vital signs: Vital Signs 03/03/18 20:00 03/04/18 00:00 03/04/18 08:00 Temperature 97.3 F L 97.9 F 97.9 F Pulse Rate 86 87 77 Respiratory Rate 17 18 17 Blood Pressure 122/62 123/70 127/74 Pulse Oximetry 96 98 96 03/04/18 14:18 03/04/18 14:30 03/04/18 14:45 Temperature 98.5 F Pulse Rate 98 H 92 H 90 Respiratory Rate 22 26 H 21 Blood Pressure 122/71 137/76 132/74 Pulse Oximetry 96 93 L 97 03/04/18 15:00 03/04/18 15:15 03/04/18 15:30 Temperature Pulse Rate 91 H 96 H 96 H Respiratory Rate 20 18 18 Blood Pressure 138/83 120/73 128/75 Pulse Oximetry 97 95 97 03/04/18 15:45 03/04/18 16:00 Temperature 98.7 F Pulse Rate 99 H 95 H Respiratory Rate 16 21 Blood Pressure 121/72 109/69 Pulse Oximetry 98 98 Intake & Output 03/03/18 03/04/18 03/04/18 18:59 06:59 18:59 Intake Total 1000 / 1000 1000 / 1000 2300 / 2300 Output Total 800 / 800 650 / 650 Balance 200 / 200 1000 / 1000 1650 / 1650 Weight 101 kg Intake: IV 1000 / 1000 1000 / 1000 100 / 100 NS Inj 1,000 ML @ 125 mls/hr IV 1000 / 1000 1000 / 1000 .CONT .Q8H [facility] Rx#:[id number] Ancef Inj 2,000 MG In NS Inj 80 100 / 100 ML @ 200 mls/hr IV.SIG ONCE ONE Rx#:[id number] Oral 0 / 0 Anesthesia Amount 2200 / 2200 Output: Urine Amount (Catheter) 200 / 200 Indwelling Urethral Catheter 200 / 200 Gastric Drainage 800 / 800 450 / 450 NG right nare 800 / 800 450 / 450 Other: # Voids 0 Date of Last Bowel Movement 03/02/18 03/02/18 03/02/18 # Bowel Movements 0 Narrative: GENERAL: WN, WD male resting in bed in [facility]. SKIN: Warm and dry. HEART: RRR no m/r/g. LUNGS: CTAB without wheezes or crackles. ABDOMEN: Good bowel sounds distended abdomen, minimal tenderness, surgical dressing in place with binder EXTREMITIES: No LE edema. NEURO: Awake and alert. PSYCH: Appropriate mood and affect. - Urinary Catheter Management Indwelling Urethral Catheter Cath placed during this visit: yes Reason for continuing: Hourly intake/output Insertion date: 03/04/18 Insertion time: 12:00 Results - Labs CBC & Chem 7: 03/04/18 10:46 03/04/18 10:46 Laboratory Results - last 24 hr 03/04/18 03/04/18 03/04/18 10:46 10:46 10:46 WBC 10.5 RBC 3.84 L Hgb 9.4 L Hct 28.9 L MCV 75.3 L MCH 24.4 L MCHC 32.4 RDW 15.6 Plt Count 595 H MPV 6.9 L Neut % (Auto) 79.8 H Lymph % (Auto) 9.6 [place] % (Auto) 8.6 H Eos % (Auto) 1.5 Baso % (Auto) 0.5 Neut # (Auto) 8.4 H Lymph # (Auto) 1.0 [place] # (Auto) 0.9 Eos # (Auto) 0.2 Baso # (Auto) 0.0 WBC Differential . Differential Comment Auto diff final Sodium 139 Potassium 3.9 Chloride 105 Carbon Dioxide 23.1 Anion Gap 11 BUN 3 L Creatinine 0.63 Estimated GFR Greater than 89 Random Glucose 93 Calcium 8.5 Blood Type A Positive Blood Type Recheck Not needed Antibody Screen Negative Assessment and Plan - Assessment (1) Intestinal mass Code(s): K63.89 - Other specified diseases of intestine Status: Acute (2) Liver metastasis Code(s): C78.7 - Secondary malignant neoplasm of liver and intrahepatic bile duct Status: Acute (3) Lung nodules Code(s): R91.8 - Other nonspecific abnormal finding of lung field Status: Acute (4) SBO (small bowel obstruction) Code(s): K56.609 - Unspecified intestinal obstruction, unspecified as to partial versus complete obstruction Status: Acute - Plan 67 year old male with history of mitral valve replacement admitted 02/28 for abdominal pain. On CT, he was found to have a mass on the cecum and terminal ileum along with widespread metastatic lesions on the liver. 1. Intestinal mass with liver mets - CT A/P showing an irregular, large, malignant appearing mass of the cecum and terminal ileum with associated SBO. There is also metastatic regional mesenteric nodules and/or lymph node in the RLQ as well as widespread liver mets - Alkaline phosphatase elevated - Mild AST elevation, likely secondary to chronic EtOH use vs. liver mets - GI and general surgery consulted, s/p colectomy 03/04 - S/p CT-guided biopsy of liver 03/01. Pathology pending - S/p colonoscopy 03/02 showing an obstructing cecal mass and a pedunculated midtransverse polyp that was removed. Biopsies pending - CEA and CA19-9 extremely elevated - Will await path results, oncology consult once path results -Pain management with morphine mattress stripper 2. SBO - NGT to LIS - Pain control - NPO - OOB - NS at 100 ml/hr - Incentive spirometer Further management per general surgery. 3. Lung nodules - Visualized on CT A/P - CT chest showing multiple tiny nodules, either inflammatory or early mets - History of tobacco abuse >20 years ago - Supplemental O2 to maintain sats >92% Follow-up as an outpatient. 4. Anemia, acute on chronic - Likely secondary to intestinal mass - Hemodynamically stable - Continue to monitor - Transfuse if Hb <7 or symptomatic 5. History of mitral valve replacement - Monitor BP - No signs of CHF DVT prophylaxis: SCDs, resume heparin Discussed Condition With: Patient and RN
--- NOTE | 2018-03-04 17:59 | MP ---
cc: Fede Olivia MD, Joseph D MD DATE OF OPERATION: 03/04/2018 PREOPERATIVE DIAGNOSIS: Metastatic colon cancer with obstructive ascending colon at the cecum. POSTOPERATIVE DIAGNOSIS: Metastatic colon cancer with obstructive ascending colon at the cecum with widely metastatic disease. PROCEDURE PERFORMED: 1. Laparoscopic-assisted right extended hemicolectomy. 2. Partial omentectomy. ANESTHESIA: General. SURGEON: Fede Olivia MD ORTHOPEDIC TECHNICIAN: THOMPSON Lara Kathryn B. NATIONAL SALES MANAGER/Ice Delivery Driver NATIONAL SALES MANAGER The NATIONAL SALES MANAGER/Ice Delivery Driver was present from beginning to the end of the case assisting in all portions of the procedure. It was necessary to have this individual in the room to assist in the above surgical procedure. The surgical procedure was assisted by the NATIONAL SALES MANAGER/Ice Delivery Driver. The NATIONAL SALES MANAGER/Ice Delivery Driver presence was necessary throughout the case for appropriate retraction, dissection, visualization, and resection of the important anatomical structures during the surgical procedure. The NATIONAL SALES MANAGER/Ice Delivery Driver was assisting throughout the entirety of the operation. The skill set of the NATIONAL SALES MANAGER/Ice Delivery Driver is medically and surgically necessary to safely complete the surgical procedure. During the surgical case the operating room surgical scrub technician was working instrument table and passing instruments to the attending surgeon and NATIONAL SALES MANAGER/ Ice Delivery Driver. The NATIONAL SALES MANAGER/Ice Delivery Driver was directly assisting the operating surgeon and involved in the technical aspects of the surgical case. INDICATIONS: This is an unfortunate 67-year-old gentleman who was recently found to have obstructing cecal cancer with widely metastatic disease to the liver. Plans were made for above to relieve his obstructive symptoms. DESCRIPTION OF PROCEDURE: The patient was taken to the operating room and placed in supine position. After anesthesia antibiotics are given. A timeout is done. We prep and drape his abdomen. We make an incision above the umbilicus and dissect into the abdomen and place a balloon trocar. The abdomen is insufflated to 15 mmHg. Two other working ports are placed, 5 mm above the previous port and a 5 mm below the umbilicus. It is easy to see the mass in the cecum. The small bowel is fairly dilated from his obstruction. He has widely metastatic disease in the liver, some along the peritoneal surface as well. Then using the Harmonic scalpel, we are able to take down the attachment of the ascending colon to the cecum all the way up to the hepatic flexure and bringing this over towards the midline. The cecum and terminal ileum are fairly mobile. We then disconnect the supraumbilical port and the other 5 mm port and we are able to bring the cecum and ascending colon out through the midline incision. Using the GI stapling device, we divide approximately 5-6 cm distal to the obstructing mass and then to a normal-appearing slightly dilated terminal ileum. We dissect into the mesentery and there areas obvious matted nodes and dissect down to the root of mesentery tying off the right colic with the silk suture. The specimen is then passed off the field. We then irrigate, checked for hemostasis. We then band reapproximate the mesentery to prevent internal herniation. We then open the terminal ileum along the antimesenteric border and suck out about 200 mL of succuss to decompress the small bowel. Similarly, this is done to the remaining colon and then, using a [id number] functional end-to-end anastomosis with a GI stapling device, we create the anastomosis. The crotch is buttressed with a silk suture. The remaining enterotomy is then closed with a TA 60 and the staple line is oversewn. This was then placed back into the abdomen and omentum was draped over the area, although the portion of the omentum was resected as it had metastatic disease deposits on the mesentery and these are removed so they are not near the anastomosis. This is accomplished with the Harmonic scalpel. We then place the omentum over the anastomosis. It is noted that he does not appear to have any studding on the small bowel. There is no obstructing in the small bowel. After this was done, we then remove the irrigating solution. The fascia is closed with a #1 PDS in a running fashion. Skin is closed with a skin stapler device. A vinayak dressing is applied and abdominal binder. The patient tolerated the procedure well, had no immediate postop complications. Estimated blood loss 50 mL. He got about 2200 mL of fluids. MD ROSARIO Ashley/ , 05:27 PM , 05:[address] [facility]
[2018-03-05] MEDS: Sod Chloride 0.9% Inj 1,000 ML IV.CONT SCH ×4 (01:55→22:36)
[2018-03-05 06:10] LABS: Baso % (Auto) 0.1 % (0.0-2.0); Hematocrit 28.3 % (39.0-51.0); Lymph # (Auto) 0.5 th/mm3 (1.0-4.8); Lymph % (Auto) 4.1 % (9.0-44.0); Mean Corpuscular HGB Conc 31.6 % (32.0-36.0); Mean Corpuscular Hemoglobin 23.7 pg (27.0-34.0); Mono # (Auto) 0.7 th/mm3 (0.0-0.9); Mono % (Auto) 5.7 % (0.0-8.0); Neut # (Auto) 11.8 th/mm3 (1.8-7.7); Neut % (Auto) 90.1 % (16.0-70.0); Platelet Count 543 th/mm3 (150-450); Red Blood Count 3.78 mil/mm3 (4.50-5.90); Red Cell Distribution Width 15.6 % (11.6-17.2); White Blood Count 13.1 th/mm3 (4.0-11.0)
[2018-03-05 06:27] LABS: Anion Gap 11 meq/L (5-15); Blood Urea Nitrogen 5 mg/dL (7-18); Calcium 8.3 mg/dL (8.5-10.1); Carbon Dioxide 21.9 meq/L (21.0-32.0); Chloride 106 meq/L (98-107); Glomerular Filtration Rate Greater Than 89 mL/min (>89); Glucose,Random 165 mg/dL (74-106); Sodium 139 meq/L (136-145)
--- NOTE | 2018-03-05 12:12 | P.PNGS ---
<AddisonSandee - Last Filed: 03/05/18 11:55> Subjective Interval history: Resting in bed; asking about getting sheets changed; asking about Roldan coming out Physical Exam Vital signs: Vital Signs 03/04/18 14:18 03/04/18 14:30 03/04/18 14:45 Temperature 98.5 F Pulse Rate 98 H 92 H 90 Respiratory Rate 22 26 H 21 Blood Pressure 122/71 137/76 132/74 Pulse Oximetry 96 93 L 97 03/04/18 15:00 03/04/18 15:15 03/04/18 15:30 Temperature Pulse Rate 91 H 96 H 96 H Respiratory Rate 20 18 18 Blood Pressure 138/83 120/73 128/75 Pulse Oximetry 97 95 97 03/04/18 15:45 03/04/18 16:00 03/04/18 20:00 Temperature 98.7 F 97.4 F L Pulse Rate 99 H 95 H 83 Respiratory Rate 16 21 18 Blood Pressure 121/72 109/69 110/65 Pulse Oximetry 98 98 91 L 03/05/18 00:00 03/05/18 04:00 03/05/18 08:00 Temperature 97.1 F L 97.2 F L 97.2 F L Pulse Rate 84 70 60 Respiratory Rate 20 20 17 Blood Pressure 115/70 142/78 H 125/73 Pulse Oximetry 95 99 98 Intake & Output 03/04/18 03/05/18 03/05/18 18:59 06:59 18:59 Intake Total 2300 / 2300 2540 / 2540 1100 / 1100 Output Total 650 / 650 450 / 450 350 / 350 Balance 1650 / 1650 2090 / 2090 750 / 750 Weight 109.5 kg Intake: IV 100 / 100 2300 / 2300 1100 / 1100 NS Inj 1,000 ML @ 100 mls/hr IV 1000 / 1000 1000 / 1000 .CONT .Q10H [facility] Rx#:[id number] Ofirmev Inj 1,000 mg In 100 ml 100 / 100 100 / 100 @ 400 mls/hr IV.SIG 0200,0800, 1400,2000 [facility] Rx#:[id number] Ancef Inj 2,000 MG In NS Inj 80 100 / 100 ML @ 200 mls/hr IV.SIG ONCE ONE Rx#:[id number] Oral 240 / 240 Anesthesia Amount 2200 / 2200 Output: Urine Amount (Catheter) 200 / 200 450 / 450 350 / 350 Indwelling Urethral Catheter 200 / 200 450 / 450 350 / 350 Gastric Drainage 450 / 450 NG right nare 450 / 450 Other: # Voids 0 Date of Last Bowel Movement 03/02/18 03/02/18 # Bowel Movements 0 Narrative: Alert and awake Cardio: RRR Resp: CTAB Abd: ZACARIAS in place with good seal; abdomen remains distended although less Ext: minimal BLE edema - Urinary Catheter Management Indwelling Urethral Catheter Cath placed during this visit: yes, but has since been removed by the nurse Reason for continuing: Decision to DC catheter Insertion date: 03/04/18 Insertion time: 12:00 Removal date: 03/05/18 Removal time: 11:12 Assessment and Plan - Assessment (1) Colon cancer Code(s): C18.9 - Malignant neoplasm of colon, unspecified Status: Chronic (2) Intestinal mass Code(s): K63.89 - Other specified diseases of intestine Status: Acute (3) Liver metastasis Code(s): C78.7 - Secondary malignant neoplasm of liver and intrahepatic bile duct Status: Acute (4) Hx of mitral valve repair Code(s): Z98.890 - Other specified postprocedural states Status: Acute - Plan 67 year old male with 1 week history of abdominal pain; CT findings of cecum mass; metastatic liver lesions -POD1 lap assisted right extended hemicolectomy -Consult to Oncology ---requests Dr. Fontaine; discussed with Marisa MACKAY -Pathology reviewed--- + adenocarcinoma -Clear liquids -Pain control with SENIOR TECHNICAL SPECIALIST -Reviewed intraoperative pictures with patient -IVF -DC Roldan <Fede Olivia - Last Filed: 03/05/18 15:28> Subjective Interval history: DAILY PROGRESS NOTE FOR SURGICAL ATTENDING, DR. FEDE OLIVIA Physical Exam Vital signs: Vital Signs 03/04/18 15:30 03/04/18 15:45 03/04/18 16:00 Temperature 98.7 F Pulse Rate 96 H 99 H 95 H Respiratory Rate 18 16 21 Blood Pressure 128/75 121/72 109/69 Pulse Oximetry 97 98 98 03/04/18 20:00 03/05/18 00:00 03/05/18 04:00 Temperature 97.4 F L 97.1 F L 97.2 F L Pulse Rate 83 84 70 Respiratory Rate 18 20 20 Blood Pressure 110/65 115/70 142/78 H Pulse Oximetry 91 L 95 99 03/05/18 08:00 03/05/18 12:00 Temperature 97.2 F L 97.2 F L Pulse Rate 60 71 Respiratory Rate 17 17 Blood Pressure 125/73 143/74 H Pulse Oximetry 98 94 L Intake & Output 03/04/18 03/05/18 03/05/18 18:59 06:59 18:59 Intake Total 2300 / 2300 2540 / 2540 1100 / 1100 Output Total 650 / 650 450 / 450 350 / 350 Balance 1650 / 1650 2090 / 2090 750 / 750 Weight 109.5 kg Intake: IV 100 / 100 2300 / 2300 1100 / 1100 NS Inj 1,000 ML @ 100 mls/hr IV 1000 / 1000 1000 / 1000 .CONT .Q10H [facility] Rx#:[id number] Ofirmev Inj 1,000 mg In 100 ml 100 / 100 100 / 100 @ 400 mls/hr IV.SIG 0200,0800, 1400,2000 [facility] Rx#:[id number] Ancef Inj 2,000 MG In NS Inj 80 100 / 100 ML @ 200 mls/hr IV.SIG ONCE ONE Rx#:[id number] Oral 240 / 240 Anesthesia Amount 2200 / 2200 Output: Urine Amount (Catheter) 200 / 200 450 / 450 350 / 350 Indwelling Urethral Catheter 200 / 200 450 / 450 350 / 350 Gastric Drainage 450 / 450 NG right nare 450 / 450 Other: # Voids 0 Date of Last Bowel Movement 03/02/18 03/02/18 03/02/18 # Bowel Movements 0 Narrative: Doing well sitting up in chair working on his computer Passing flatus Tolerating sips of clear - Urinary Catheter Management Indwelling Urethral Catheter Cath placed during this visit: no Assessment and Plan - Assessment (1) Colon cancer Code(s): C18.9 - Malignant neoplasm of colon, unspecified Status: Chronic (2) Intestinal mass Code(s): K63.89 - Other specified diseases of intestine Status: Acute (3) Liver metastasis Code(s): C78.7 - Secondary malignant neoplasm of liver and intrahepatic bile duct Status: Acute (4) Hx of mitral valve repair Code(s): Z98.890 - Other specified postprocedural states Status: Acute - Attending Attestation NOTE FOR SURGICAL ATTENDING, DR. FEDE OLIVIA I agree with above assessment and plan. The exam, history, and the medical decision-making described in the above note were completed with the assistance of the mid-level provider. I reviewed and agree with the findings presented. I attest that I had a [id number] encounter with the patient on the same day, and personally performed and documented my assessment and findings in the medical record. The following services were provided during this hospital visit: Chart data review, vital sign assessments/reviewing monitor data Review of consultations notes if present. Medication orders/review and/or management Ordering and/or reviewing lab tests Ordering and/or interpreting/reviewing x-rays and/or diagnostic studies Care of the patient and discussion of the patient with the care team Documentation time To help prompt me to consider important information that might be impacting today's encounter and assessment, Information from prior notes written by myself or my colleagues may have been "brought forward/copy and pasted" into today's note. <Sandee Jaime - Last Filed: 03/05/18 11:55> (1) Colon cancer Qualifiers: Colon location: ascending Qualified Code(s): C18.2 - Malignant neoplasm of ascending colon <Fede Olivia - Last Filed: 03/05/18 15:28> (1) Colon cancer Qualifiers: Colon location: ascending Qualified Code(s): C18.2 - Malignant neoplasm of ascending colon
--- NOTE | 2018-03-05 16:30 | P.PN ---
Subjective Interval history: Follow up: Intestinal mass with possible liver mets, SBO, Lung nodules, anemia Patient sitting up in chair in NAD offers no specific complaints at this time reports minimal post-op pain Physical Exam Vital signs: Vital Signs 03/04/18 20:00 03/05/18 00:00 03/05/18 04:00 Temperature 97.4 F L 97.1 F L 97.2 F L Pulse Rate 83 84 70 Respiratory Rate 18 20 20 Blood Pressure 110/65 115/70 142/78 H Pulse Oximetry 91 L 95 99 03/05/18 08:00 03/05/18 12:00 03/05/18 16:00 Temperature 97.2 F L 97.2 F L 97.6 F Pulse Rate 60 71 80 Respiratory Rate 17 17 17 Blood Pressure 125/73 143/74 H 138/81 Pulse Oximetry 98 94 L 97 Intake & Output 03/04/18 03/05/18 03/05/18 18:59 06:59 18:59 Intake Total 2300 / 2300 2540 / 2540 1100 / 1100 Output Total 650 / 650 450 / 450 350 / 350 Balance 1650 / 1650 2090 / 2090 750 / 750 Weight 109.5 kg Intake: IV 100 / 100 2300 / 2300 1100 / 1100 NS Inj 1,000 ML @ 100 mls/hr IV 1000 / 1000 1000 / 1000 .CONT .Q10H [facility] Rx#:[id number] Ofirmev Inj 1,000 mg In 100 ml 100 / 100 100 / 100 @ 400 mls/hr IV.SIG 0200,0800, 1400,2000 [facility] Rx#:[id number] Ancef Inj 2,000 MG In NS Inj 80 100 / 100 ML @ 200 mls/hr IV.SIG ONCE ONE Rx#:[id number] Oral 240 / 240 Anesthesia Amount 2200 / 2200 Output: Urine Amount (Catheter) 200 / 200 450 / 450 350 / 350 Indwelling Urethral Catheter 200 / 200 450 / 450 350 / 350 Gastric Drainage 450 / 450 NG right nare 450 / 450 Other: # Voids 0 Date of Last Bowel Movement 03/02/18 03/02/18 03/02/18 # Bowel Movements 0 Narrative: GENERAL: 67 year old patient sitting up in chair, NAD. HEART: RRR LUNGS: CTAB without wheezes or crackles. ABDOMEN: hypoactive bowel sounds distended abdomen, minimal tenderness, surgical dressing in place with binder EXTREMITIES: No LE edema. NEURO: Awake and alert. PSYCH: Appropriate mood and affect. - Urinary Catheter Management Indwelling Urethral Catheter Cath placed during this visit: yes, but has since been removed by the nurse Reason for continuing: Decision to DC catheter Insertion date: 03/04/18 Insertion time: 12:00 Removal date: 03/05/18 Removal time: 11:12 Results - Labs CBC & Chem 7: 03/05/18 05:08 03/05/18 05:08 Laboratory Results - last 24 hr 03/05/18 03/05/18 05:08 05:08 WBC 13.1 H RBC 3.78 L Hgb 9.0 L Hct 28.3 L MCV 75.0 L MCH 23.7 L MCHC 31.6 L RDW 15.6 Plt Count 543 H MPV 7.0 Neut % (Auto) 90.1 H Lymph % (Auto) 4.1 L [place] % (Auto) 5.7 Eos % (Auto) 0.0 Baso % (Auto) 0.1 Neut # (Auto) 11.8 H Lymph # (Auto) 0.5 L [place] # (Auto) 0.7 Eos # (Auto) 0.0 Baso # (Auto) 0.0 WBC Differential . Differential Comment Auto diff final Sodium 139 Potassium 4.0 Chloride 106 Carbon Dioxide 21.9 Anion Gap 11 BUN 5 L Creatinine 0.55 L Estimated GFR Greater than 89 Random Glucose 165 H Calcium 8.3 L Assessment and Plan - Plan 67 year old male with history of mitral valve replacement admitted 02/28 for abdominal pain. On CT, he was found to have a mass on the cecum and terminal ileum along with widespread metastatic lesions on the liver. 1. Intestinal mass with liver mets - CT A/P showing an irregular, large, malignant appearing mass of the cecum and terminal ileum with associated SBO. There is also metastatic regional mesenteric nodules and/or lymph node in the RLQ as well as widespread liver mets - Alkaline phosphatase elevated - Mild AST elevation, likely secondary to chronic EtOH use vs. liver mets - GI and general surgery consulted, s/p colectomy 03/04 - S/p CT-guided biopsy of liver 03/01. Pathology LIVER, MASS, NEEDLE BIOPSY: MODERATELY DIFFERENTIATED ADENOCARCINOMA - S/p colonoscopy 03/02 showing an obstructing cecal mass and a pedunculated midtransverse polyp that was removed. Biopsies - S/P 1. Laparoscopic-assisted right extended hemicolectomy. and 2. Partial omentectomy with Dr. Olivia 03/04/18 - pathology: #1-COLON, CECUM, MASS, BIOPSY: - INVASIVE, MODERATELY DIFFERENTIATED ADENOCARCINOMA. #2-COLON, TRANSVERSE, POLYP, POLYPECTOMY: - TUBULOVILLOUS ADENOMA. 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 SBO - Pain control - clear liquid diet - OOB - NS decreased to 50 ml/H - Incentive spirometer 3. Lung nodules - Visualized on CT A/P - CT chest showing multiple tiny nodules, either inflammatory or early mets - History of tobacco abuse >20 years ago - Supplemental O2 to maintain sats >92% Follow-up as an outpatient. 4. Anemia, acute on chronic - Likely secondary to intestinal mass - Hemodynamically stable - Continue to monitor - Transfuse if Hb <7 or symptomatic 5. History of mitral valve replacement - Monitor BP - No signs of CHF DVT prophylaxis: SCDs, resume heparin Discussed Condition With: Supervising physician Dr. Hernandez, Patient and RN
[2018-03-05] MEDS: Heparin - SQ 10,000 UNITS/ML Vial SQ SCH (22:35)
[2018-03-06 05:19] LABS: Baso % (Auto) 0.1 % (0.0-2.0); Eos % (Auto) 0.2 % (0.0-4.0); Hematocrit 27.9 % (39.0-51.0); Hemoglobin 8.9 gm/dL (13.0-17.0); Lymph % (Auto) 6.9 % (9.0-44.0); Mean Corpuscular HGB Conc 31.9 % (32.0-36.0); Mean Corpuscular Hemoglobin 23.9 pg (27.0-34.0); Mean Platelet Volume 7.1 fL (7.0-11.0); Neut # (Auto) 12.6 th/mm3 (1.8-7.7); Neut % (Auto) 85.8 % (16.0-70.0); Platelet Count 574 th/mm3 (150-450); Red Blood Count 3.71 mil/mm3 (4.50-5.90); Red Cell Distribution Width 15.6 % (11.6-17.2); White Blood Count 14.6 th/mm3 (4.0-11.0)
[2018-03-06 05:30] LABS: Anion Gap 7 meq/L (5-15); Blood Urea Nitrogen 6 mg/dL (7-18); Calcium 8.1 mg/dL (8.5-10.1); Carbon Dioxide 27.9 meq/L (21.0-32.0); Chloride 105 meq/L (98-107); Glomerular Filtration Rate Greater Than 89 mL/min (>89); Glucose,Random 114 mg/dL (74-106); Potassium 3.5 meq/L (3.5-5.1); Sodium 140 meq/L (136-145)
[2018-03-06] MEDS: Heparin - SQ 10,000 UNITS/ML Vial SQ SCH ×2 (08:21→20:45)
--- NOTE | 2018-03-06 12:06 | P.PN ---
Subjective Interval history: Patient states he feels distended. Not nauseous, however. Physical Exam Vital signs: Vital Signs 03/05/18 16:00 03/05/18 18:32 03/05/18 20:00 Temperature 97.6 F 97.7 F Pulse Rate 80 77 Respiratory Rate 17 18 22 Blood Pressure 138/81 126/66 Pulse Oximetry 97 99 03/06/18 00:00 03/06/18 04:00 03/06/18 08:00 Temperature 97.5 F L 97.6 F 98.2 F Pulse Rate 68 65 68 Respiratory Rate 22 20 19 Blood Pressure 142/84 H 135/82 148/86 H Pulse Oximetry 97 97 96 Intake & Output 03/05/18 03/06/18 03/06/18 18:59 06:59 18:59 Intake Total 2160 / 2160 1320 / 1320 Output Total 700 / 700 600 / 600 Balance 1460 / 1460 720 / 720 Weight 111.3 kg Intake: IV 1200 / 1200 1000 / 1000 NS Inj 1,000 ML @ 50 mls/hr IV. 1000 / 1000 1000 / 1000 CONT .Q20H [facility] Rx#:[id number] Ofirmev Inj 1,000 mg In 100 ml 200 / 200 @ 400 mls/hr IV.SIG 0200,0800, 1400,2000 [facility] Rx#:[id number] Oral 960 / 960 320 / 320 Output: Urine 350 / 350 600 / 600 Urine Amount (Catheter) 350 / 350 Indwelling Urethral Catheter 350 / 350 Other: Date of Last Bowel Movement 03/02/18 03/02/18 - Routine Abdominal Exam Present: soft, tenderness (Nontender), distended, wound (Lesli dressing intact with no drainage) - Urinary Catheter Management Indwelling Urethral Catheter Cath placed during this visit: yes, but has since been removed by the nurse Reason for continuing: Decision to DC catheter Insertion date: 03/04/18 Insertion time: 12:00 Removal date: 03/05/18 Removal time: 10:00 Results - Labs CBC & Chem 7: 03/06/18 04:12 03/06/18 04:12 Laboratory Results - last 24 hr 03/06/18 03/06/18 04:12 04:12 WBC 14.6 H RBC 3.71 L Hgb 8.9 L Hct 27.9 L MCV 75.0 L MCH 23.9 L MCHC 31.9 L RDW 15.6 Plt Count 574 H MPV 7.1 Neut % (Auto) 85.8 H Lymph % (Auto) 6.9 L [place] % (Auto) 7.0 Eos % (Auto) 0.2 Baso % (Auto) 0.1 Neut # (Auto) 12.6 H Lymph # (Auto) 1.0 [place] # (Auto) 1.0 H Eos # (Auto) 0.0 Baso # (Auto) 0.0 WBC Differential . Differential Comment Auto diff final Sodium 140 Potassium 3.5 Chloride 105 Carbon Dioxide 27.9 Anion Gap 7 BUN 6 L Creatinine 0.61 Estimated GFR Greater than 89 Random Glucose 114 H Calcium 8.1 L Assessment and Plan - Assessment (1) Colon cancer Code(s): C18.9 - Malignant neoplasm of colon, unspecified Status: Chronic Plan: Postop day #1 laparoscopically assisted extended right hemicolectomy with omentectomy for metastatic cancer Continue on liquid diet until bowel activity returns. May need NG tube reinserted if he has vomiting. I advised the patient to go slowly on the fluids for the rest of today. (2) Intestinal mass Code(s): K63.89 - Other specified diseases of intestine Status: Acute (3) Liver metastasis Code(s): C78.7 - Secondary malignant neoplasm of liver and intrahepatic bile duct Status: Acute (4) Hx of mitral valve repair Code(s): Z98.890 - Other specified postprocedural states Status: Acute (1) Colon cancer Qualifiers: Colon location: ascending Qualified Code(s): C18.2 - Malignant neoplasm of ascending colon
--- NOTE | 2018-03-06 14:44 | P.PNIM ---
Subjective Interval history: The patient said that he has not been passing any gas. He said initially after surgery he was passing gas but then as of yesterday he stopped. He is not nauseous. He says he was told by the surgeon to stop eating. He does not want an NG tube replaced. Physical Exam Vital signs: Vital Signs 03/05/18 16:00 03/05/18 18:32 03/05/18 20:00 Temperature 97.6 F 97.7 F Pulse Rate 80 77 Respiratory Rate 17 18 22 Blood Pressure 138/81 126/66 Pulse Oximetry 97 99 03/06/18 00:00 03/06/18 04:00 03/06/18 08:00 Temperature 97.5 F L 97.6 F 98.2 F Pulse Rate 68 65 68 Respiratory Rate 22 20 19 Blood Pressure 142/84 H 135/82 148/86 H Pulse Oximetry 97 97 96 03/06/18 12:00 Temperature 98.3 F Pulse Rate 69 Respiratory Rate 18 Blood Pressure 124/70 Pulse Oximetry 97 Intake & Output 03/05/18 03/06/18 03/06/18 18:59 06:59 18:59 Intake Total 2160 / 2160 1320 / 1320 Output Total 700 / 700 600 / 600 Balance 1460 / 1460 720 / 720 Weight 111.3 kg Intake: IV 1200 / 1200 1000 / 1000 NS Inj 1,000 ML @ 50 mls/hr IV. 1000 / 1000 1000 / 1000 CONT .Q20H [facility] Rx#:[id number] Ofirmev Inj 1,000 mg In 100 ml 200 / 200 @ 400 mls/hr IV.SIG 0200,0800, 1400,2000 [facility] Rx#:[id number] Oral 960 / 960 320 / 320 Output: Urine 350 / 350 600 / 600 Urine Amount (Catheter) 350 / 350 Indwelling Urethral Catheter 350 / 350 Other: Date of Last Bowel Movement 03/02/18 03/02/18 Narrative: GENERAL: Resting comfortably. HEART: RRR. LUNGS: CTAB without wheezes or crackles. ABDOMEN: +BS, distended but soft, surgical dressing in place with binder, nontender. EXTREMITIES: 1+ LE edema. NEURO: Awake and alert. PSYCH: Appropriate mood and affect. - Urinary Catheter Management Indwelling Urethral Catheter Cath placed during this visit: yes, but has since been removed by the nurse Reason for continuing: Decision to DC catheter Insertion date: 03/04/18 Insertion time: 12:00 Removal date: 03/05/18 Removal time: 10:00 Results - Labs CBC & Chem 7: 03/06/18 04:12 03/06/18 04:12 Laboratory Results - last 24 hr 03/06/18 03/06/18 04:12 04:12 WBC 14.6 H RBC 3.71 L Hgb 8.9 L Hct 27.9 L MCV 75.0 L MCH 23.9 L MCHC 31.9 L RDW 15.6 Plt Count 574 H MPV 7.1 Neut % (Auto) 85.8 H Lymph % (Auto) 6.9 L [place] % (Auto) 7.0 Eos % (Auto) 0.2 Baso % (Auto) 0.1 Neut # (Auto) 12.6 H Lymph # (Auto) 1.0 [place] # (Auto) 1.0 H Eos # (Auto) 0.0 Baso # (Auto) 0.0 WBC Differential . Differential Comment Auto diff final Sodium 140 Potassium 3.5 Chloride 105 Carbon Dioxide 27.9 Anion Gap 7 BUN 6 L Creatinine 0.61 Estimated GFR Greater than 89 Random Glucose 114 H Calcium 8.1 L Assessment and Plan - Assessment (1) Intestinal mass Code(s): K63.89 - Other specified diseases of intestine Status: Acute (2) Liver metastasis Code(s): C78.7 - Secondary malignant neoplasm of liver and intrahepatic bile duct Status: Acute (3) Lung nodules Code(s): R91.8 - Other nonspecific abnormal finding of lung field Status: Acute (4) SBO (small bowel obstruction) Code(s): K56.609 - Unspecified intestinal obstruction, unspecified as to partial versus complete obstruction Status: Acute - Plan 67 year old male with history of mitral valve replacement admitted 02/28 for abdominal pain. On CT, he was found to have a mass on the cecum and terminal ileum along with widespread metastatic lesions on the liver. Intestinal mass with liver mets - CT A/P showing an irregular, large, malignant appearing mass of the cecum and terminal ileum with associated SBO. There is also metastatic regional mesenteric nodules and/or lymph node in the RLQ as well as widespread liver mets - LFTs elevated - GI and general surgery consulted, s/p colectomy 03/04 - S/p CT-guided biopsy of liver 03/01. Pathology LIVER, MASS, NEEDLE BIOPSY: MODERATELY DIFFERENTIATED ADENOCARCINOMA - S/p colonoscopy 03/02 showing an obstructing cecal mass and a pedunculated midtransverse polyp that was removed. - S/P 1. Laparoscopic-assisted right extended hemicolectomy. and 2. Partial omentectomy with Dr. Olivia 03/04/18 - pathology: #1-COLON, CECUM, MASS, BIOPSY: - INVASIVE, MODERATELY DIFFERENTIATED ADENOCARCINOMA. #2-COLON, TRANSVERSE, POLYP, POLYPECTOMY: - TUBULOVILLOUS ADENOMA. - CEA and CA19-9 extremely elevated - Consult placed to oncology -Pain management with morphine silk spreader SBO - Pain control - diet per surgery - increase activity - NS decreased to 50 ml/H - Incentive spirometer Lung nodules - Visualized on CT A/P - CT chest showing multiple tiny nodules, either inflammatory or early mets - History of tobacco abuse >20 years ago - Supplemental O2 to maintain sats >92% - oncology consult pending Anemia, acute on chronic - Likely secondary to intestinal mass - Hemodynamically stable - Continue to monitor - Transfuse if Hb <7 or symptomatic History of mitral valve replacement - Monitor BP - No signs of CHF except chronic LE edema DVT prophylaxis: SCDs, resume heparin
[2018-03-06] MEDS: Sod Chloride 0.9% Inj 1,000 ML IV.CONT SCH (15:37)
--- NOTE | 2018-03-06 17:56 | MB ---
cc: Claudio Bateman MD, Zafar MD DATE: 03/06/2018 REASON FOR CONSULTATION: New diagnosis of metastatic colon cancer to the liver. PATIENT PROFILE: The patient is a 67-year-old white male. He is . He was born in [place]. He has 1 son. He has lived in [place] for 32 years. 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 He stopped smoking 20 years ago and previously smoked a pack of cigarettes per day. He stopped drinking a few weeks ago and prior to this would have 2 or 3 drinks during the week day and 5 or 6 during the weekend. HISTORY OF PRESENT ILLNESS: The patient is a 67-year-old male who has enjoyed excellent health. In 2005, he had a mitral valve replacement for what he describes as a heart murmur. He has not seen a physician in many years and has had no ongoing medical problems. His immediate problem dates back to approximately 2 weeks ago, when he developed abdominal pain, which worsened over a week and became intolerable. He went to the emergency room and had radiographic studies. On 02/28/2018, the patient had a CT scan of the abdomen and pelvis with contrast for evaluation of abdominal pain. He was found to have an irregular large malignant-appearing mass involving the cecum and terminal ileum associated with small bowel obstruction. He had metastatic regional mesenteric nodules. He had widespread metastatic disease to the liver. A CT scan of the chest on 03/01/2018 revealed multiple tiny 3 mm or less nodules in both lungs. There was evidence of a previous sternotomy with mitral valve replacement. A CT-guided liver biopsy was performed on 03/01/2018. The specimen revealed moderately differentiated adenocarcinoma. The findings were consistent with a gastrointestinal tumor. On 03/02/2018, the patient had a colonoscopy which showed an obstructing mass involving the cecum and the biopsy revealed invasive well differentiated adenocarcinoma. On 03/04/2018, the patient had a laparoscopic-assisted right extended hemicolectomy and partial omentectomy. The patient was found to have a mass in the cecum. He had evidence of widespread metastatic disease involving the liver, as well as smaller volume disease along the peritoneal surface. Pathology is pending. ADDITIONAL LABORATORY STUDIES: Included on admission, the hemoglobin of 8.8, white count 9200, and platelets 570,000 with an MCV of 73. CMP on 03/12/2018 revealed an alkaline phosphatase of 187, ALT 17, AST 39, and total bilirubin 0.8. BUN 7, creatinine 0.56. CA 19-9 was 14,207. A CEA was 4829. The patient denies any recent weight loss except for 5 or 10 pounds over the past 3 weeks. He has not felt ill. There has been no fatigue, anorexia. The only symptoms that he had consisted of 1 week of abdominal pain. PAST SURGICAL HISTORY: 1. Mitral valve [place] [address] Woody Gallardo. 2, At age 28, appendectomy. 3. 03/04/2018, laparoscopic-assisted right extended hemicolectomy and partial omentectomy by Dr. Fede Olivia 03/04/2018. Pathology pending. PAST MEDICAL HISTORY: History of heart murmur leading to mitral valve replacement. MEDICATIONS PRIOR TO ADMISSION: NONE. ALLERGIES: NONE. FAMILY HISTORY: Father in his 70s of either colon cancer or prostate cancer. The patient's mother is living, as well as 3 sisters and a brother and there is no history of anyone else having colon cancer. REVIEW OF SYSTEMS: Unremarkable, except for the abdominal pain during the past 3 weeks and the fact that he stopped drinking about 3 weeks ago, believing that this would help him lose weight. He did on 3 occasions note dark stools. PHYSICAL EXAMINATION: GENERAL: The patient appears well except for abdominal distention. He has a binder. VITAL SIGNS: Temperature 98.3, pulse 70, respiratory rate 18, blood pressure 124/70, O2 saturation on room air 97%. HEENT: Head is normocephalic. Sclerae and conjunctivae are normal. Oropharynx unremarkable. There is no cervical, supraclavicular, axillary or inguinal adenopathy. HEART: Regular rhythm. LUNGS: Clear. ABDOMEN: Soft, distended. He has a binder. Bowel sounds are decreased. EXTREMITIES: Trace edema. MUSCULOSKELETAL: No bone pain. NEUROLOGIC: No weakness. Cognition normal. SKIN: Normal. ASSESSMENT: The patient is a 67-year-old male who has enjoyed excellent health except for mitral valve replacement in 2005. He has not seen a physician in many years and now unfortunately presents with an adenocarcinoma of the cecum with widespread metastatic disease to the liver, easily visualized on the CT scan and smaller amount of peritoneal metastases. RECOMMENDATIONS: 1. The patient and the patient's want to see Dr. Fontaine and therefore the care will be transferred to Dr. Fontaine at the beginning of the week. 2. The patient told me that arrangements have already been made for placement of Infusaport. 3. He will need systemic chemotherapy and will be a candidate for either FOLFOX or FOLFIRI and further decisions regarding Avastin and cetuximab can be made at a later date, depending upon tests such as KRAS, NRAS, BRAF, etc. Unfortunately, his disease is extensive and therefore not at the present time likely to be curable, but responses can be dramatic and durable. Claudio Bateman MD RW/ct , 05:13 PM , 05:27 PM MTDD
[2018-03-06] MEDS: HYDROmorphone PCA Inj 6 MG/30 ML PCA.VIAL PCA PRN (20:45)
[2018-03-07 06:01] LABS: Hematocrit 28.4 % (39.0-51.0); Mean Corpuscular HGB Conc 31.6 % (32.0-36.0); Mean Corpuscular Hemoglobin 23.6 pg (27.0-34.0); Mean Corpuscular Volume 74.7 fL (80.0-100.0); Mean Platelet Volume 6.9 fL (7.0-11.0); Platelet Count 530 th/mm3 (150-450); Red Blood Count 3.81 mil/mm3 (4.50-5.90); Red Cell Distribution Width 16.3 % (11.6-17.2); White Blood Count 9.6 th/mm3 (4.0-11.0)
[2018-03-07 06:27] LABS: Anion Gap 7 meq/L (5-15); Blood Urea Nitrogen 8 mg/dL (7-18); Calcium 7.8 mg/dL (8.5-10.1); Carbon Dioxide 26.1 meq/L (21.0-32.0); Chloride 106 meq/L (98-107); Glomerular Filtration Rate Greater Than 89 mL/min (>89); Glucose,Random 105 mg/dL (74-106); Potassium 3.6 meq/L (3.5-5.1); Sodium 139 meq/L (136-145)
[2018-03-07] MEDS: Heparin - SQ 10,000 UNITS/ML Vial SQ SCH ×2 (09:37→20:30)
[2018-03-07] MEDS: Sod Chloride 0.9% Inj 1,000 ML IV.CONT SCH (09:44)
[2018-03-07] MEDS ORDERED: Potassium Chloride 25 MEQ Effervescent Tablet PO ONE (16:25)
--- NOTE | 2018-03-07 16:31 | P.PNIM ---
Subjective Interval history: The patient said that he was having a lot of diarrhea. He described the stool as brown and watery in consistency. He is not eating because it is going right through him. Discussed with nursing. Physical Exam Vital signs: Vital Signs 03/06/18 20:00 03/07/18 00:00 03/07/18 08:00 Temperature 97.3 F L 97.9 F 97.9 F Pulse Rate 87 78 82 Respiratory Rate 18 18 20 Blood Pressure 150/85 H 136/82 130/71 Pulse Oximetry 99 96 94 L 03/07/18 12:00 03/07/18 16:00 Temperature 97.9 F 98.8 F Pulse Rate 68 70 Respiratory Rate 18 18 Blood Pressure 129/77 140/74 Pulse Oximetry 99 97 Intake & Output 03/06/18 03/07/18 03/07/18 18:59 06:59 18:59 Intake Total 2100 / 2100 1000 / 1000 Output Total 450 / 450 Balance 2100 / 2100 550 / 550 Intake: IV 1000 / 1000 1000 / 1000 NS Inj 1,000 ML @ 50 mls/hr IV. 1000 / 1000 1000 / 1000 CONT .Q20H [facility] Rx#:[id number] Other 1100 / 1100 Output: Urine 450 / 450 Narrative: GENERAL: No distress. HEART: RRR. LUNGS: CTAB without wheezes or crackles. ABDOMEN: +BS, distended but soft, surgical dressing in place with binder, nontender. EXTREMITIES: 1+ LE edema. NEURO: Awake and alert. PSYCH: Appropriate mood and affect. - Urinary Catheter Management Indwelling Urethral Catheter Cath placed during this visit: yes, but has since been removed by the nurse Reason for continuing: Decision to DC catheter Insertion date: 03/04/18 Insertion time: 12:00 Removal date: 03/05/18 Removal time: 10:00 Results - Labs CBC & Chem 7: 03/07/18 05:40 03/07/18 05:40 Laboratory Results - last 24 hr 03/07/18 03/07/18 05:40 05:40 WBC 9.6 RBC 3.81 L Hgb 9.0 L Hct 28.4 L MCV 74.7 L MCH 23.6 L MCHC 31.6 L RDW 16.3 Plt Count 530 H MPV 6.9 L Sodium 139 Potassium 3.6 Chloride 106 Carbon Dioxide 26.1 Anion Gap 7 BUN 8 Creatinine 0.58 L Estimated GFR Greater than 89 Random Glucose 105 Calcium 7.8 L Assessment and Plan - Assessment (1) Intestinal mass Code(s): K63.89 - Other specified diseases of intestine Status: Acute (2) Liver metastasis Code(s): C78.7 - Secondary malignant neoplasm of liver and intrahepatic bile duct Status: Acute (3) Lung nodules Code(s): R91.8 - Other nonspecific abnormal finding of lung field Status: Acute (4) SBO (small bowel obstruction) Code(s): K56.609 - Unspecified intestinal obstruction, unspecified as to partial versus complete obstruction Status: Acute - Plan 67 year old male with history of mitral valve replacement admitted 02/28 for abdominal pain. On CT, he was found to have a mass on the cecum and terminal ileum along with widespread metastatic lesions on the liver. Intestinal mass with liver mets - CT A/P showing an irregular, large, malignant appearing mass of the cecum and terminal ileum with associated SBO. There is also metastatic regional mesenteric nodules and/or lymph node in the RLQ as well as widespread liver mets - LFTs elevated - GI and general surgery consulted, s/p colectomy 03/04 - S/p CT-guided biopsy of liver 03/01. Pathology LIVER, MASS, NEEDLE BIOPSY: MODERATELY DIFFERENTIATED ADENOCARCINOMA - S/p colonoscopy 03/02 showing an obstructing cecal mass and a pedunculated midtransverse polyp that was removed. - S/P 1. Laparoscopic-assisted right extended hemicolectomy. and 2. Partial omentectomy with Dr. Olivai 03/04/18 - pathology: #1-COLON, CECUM, MASS, BIOPSY: - INVASIVE, MODERATELY DIFFERENTIATED ADENOCARCINOMA. #2-COLON, TRANSVERSE, POLYP, POLYPECTOMY: - TUBULOVILLOUS ADENOMA. - CEA and CA19-9 extremely elevated -Oncology consult appreciated. -Pain management with brattice builder SBO Now with diarrhea. - Pain control - diet per surgery - increase activity - NS decreased to 50 ml/H - Incentive spirometer Lung nodules - Visualized on CT A/P - CT chest showing multiple tiny nodules, either inflammatory or early mets - History of tobacco abuse >20 years ago - Supplemental O2 to maintain sats >92% - oncology following Anemia, acute on chronic - Likely secondary to intestinal mass - Hemodynamically stable - Continue to monitor - Transfuse if Hb < 7 or symptomatic History of mitral valve replacement - Monitor BP - No signs of CHF except chronic LE edema DVT prophylaxis: SCDs, resume heparin
--- NOTE | 2018-03-08 03:05 | P.PNGS ---
Subjective Patient reports: feels better, pain is less (NOTE FOR 03/07/18) Physical Exam Vital signs: Vital Signs 03/07/18 08:00 03/07/18 12:00 03/07/18 16:00 Temperature 97.9 F 97.9 F 98.8 F Pulse Rate 82 68 70 Respiratory Rate 20 18 18 Blood Pressure 130/71 129/77 140/74 Pulse Oximetry 94 L 99 97 03/07/18 20:00 03/08/18 00:00 Temperature 99.2 F 98.0 F Pulse Rate 71 86 Respiratory Rate 18 18 Blood Pressure 143/87 H 148/80 H Pulse Oximetry 96 96 Intake & Output 03/07/18 03/07/18 03/08/18 06:59 18:59 06:59 Intake Total 2220 / 2220 100 / 100 Output Total 450 / 450 Balance 1770 / 1770 100 / 100 Intake: IV 1000 / 1000 NS Inj 1,000 ML @ 50 mls/hr IV. 1000 / 1000 CONT .Q20H [facility] Rx#:[id number] Oral 1220 / 1220 Other 100 / 100 Output: Urine 450 / 450 Other: # Voids 6 Date of Last Bowel Movement 03/07/18 # Bowel Movements 6 - Routine Respiratory Exam Present: CTA bilaterally - Routine Cardiovascular Exam Present: RRR - Routine Abdominal Exam Present: soft (vinayak c/d/i good sxn, bowel sounds) - Urinary Catheter Management Indwelling Urethral Catheter Cath placed during this visit: yes, but has since been removed by the nurse Reason for continuing: Decision to DC catheter Insertion date: 03/04/18 Insertion time: 12:00 Removal date: 03/05/18 Removal time: 10:00 Assessment and Plan - Assessment (1) Colon cancer Code(s): C18.9 - Malignant neoplasm of colon, unspecified Status: Chronic Plan: POD 2 Lap right hemicolectomy PLAN oob pain control slowly advance to fulls vinayak sxn await path dvt ppx (2) Intestinal mass Code(s): K63.89 - Other specified diseases of intestine Status: Acute (3) Liver metastasis Code(s): C78.7 - Secondary malignant neoplasm of liver and intrahepatic bile duct Status: Acute (4) Hx of mitral valve repair Code(s): Z98.890 - Other specified postprocedural states Status: Acute (1) Colon cancer Qualifiers: Colon location: ascending Qualified Code(s): C18.2 - Malignant neoplasm of ascending colon
[2018-03-08] MEDS: Sod Chloride 0.9% Inj 1,000 ML IV.CONT SCH ×2 (04:57→14:41)
[2018-03-08 07:43] LABS: Anion Gap 8 meq/L (5-15); Blood Urea Nitrogen 6 mg/dL (7-18); Calcium 7.9 mg/dL (8.5-10.1); Carbon Dioxide 25.8 meq/L (21.0-32.0); Chloride 107 meq/L (98-107); Glucose,Random 98 mg/dL (74-106); Magnesium 1.9 mg/dL (1.5-2.5); Potassium 3.3 meq/L (3.5-5.1); Sodium 141 meq/L (136-145)
[2018-03-08 07:44] LABS: Glomerular Filtration Rate Greater Than 89 mL/min (>89)
--- NOTE | 2018-03-08 09:01 | P.PNONC ---
Subjective Interval history: Patient seen and examined, vital signs, labs, medications reviewed. Imaging studies dated 03/01/2018 were reviewed, operative notes were also reviewed. Subjectively; patient reports abdominal pain, diarrhea and abdominal distention. Objective Vital Signs/Intake & Output: Vital Signs 03/07/18 12:00 03/07/18 16:00 03/07/18 20:00 Temperature 97.9 F 98.8 F 99.2 F Pulse Rate 68 70 71 Respiratory Rate 18 18 Blood Pressure 129/77 140/74 143/87 H Pulse Oximetry 99 97 96 03/08/18 00:00 03/08/18 04:00 03/08/18 08:00 Temperature 98.0 F 97.4 F L 98.8 F Pulse Rate 86 80 66 Respiratory Rate 18 Blood Pressure 148/80 H 127/78 133/80 Pulse Oximetry 96 95 96 Intake & Output 03/07/18 03/08/18 03/08/18 18:59 06:59 18:59 Intake Total 100 / 100 1000 / 1000 Output Total 4 / 4 Balance 100 / 100 996 / 996 Intake: IV 1000 / 1000 NS Inj 1,000 ML @ 50 mls/hr IV. 1000 / 1000 CONT .Q20H [facility] Rx#:[id number] Other 100 / 100 Output: Urine/Stool Mix 4 / 4 Other: # Voids 4 Result Diagrams: 03/07/18 05:40 03/08/18 06:39 Laboratory Results: Laboratory Results - last 24 hr 03/08/18 06:39 Sodium 141 Potassium 3.3 L Chloride 107 Carbon Dioxide 25.8 Anion Gap 8 BUN 6 L Creatinine 0.50 L Estimated GFR Greater than 89 Random Glucose 98 Calcium 7.9 L Magnesium 1.9 Medications: Active Medications Generic Name Dose Route Start Last Admin Trade Name Freq PRN Reason Stop Dose Admin Alvimopan 12 mg 03/04/18 21:00 03/07/18 20:30 Entereg PO 03/11/18 09:01 12 mg Q12HR [facility] Administration Benzocaine/Menthol 1 lozenge 03/02/18 10:32 03/03/18 20:33 Chloraseptic Sore Throat Lozenge BUCCAL 1 lozenge Q2H PRN Administration sore throat from NGT Heparin Sodium (Porcine) 5,000 units 03/02/18 21:00 03/07/18 20:30 Heparin Inj SQ 5,000 units Q12HR [facility] Administration Hydromorphone/Sodium Chloride 6 mg in 30 mls @ 0 mls/hr 03/04/18 14:27 20:45 Dilaudid Licensed Nurse Practitioner Inj CHEMICAL ENGRAVER 0 mls/hr UNSCH PRN Administration per CHEMICAL ENGRAVER parameters 0 MG/HR Sodium Chloride 1,000 mls @ 50 mls/hr 03/04/18 21:15 03/08/18 04:57 Ns Inj IV.CONT 100 mls/hr .Q20H [facility] Administration Objective Remarks: GENERAL: Middle-aged male, sitting up in bed, not acutely distressed. SKIN: Warm and dry. HEAD: Normocephalic. EYES: No scleral icterus. No injection or drainage. NECK: Supple, trachea midline. No JVD or lymphadenopathy. LYMPHATIC: No adenopathy. CARDIOVASCULAR: Regular rate and rhythm without murmurs. RESPIRATORY: Breath sounds equal bilaterally. No accessory muscle use. GASTROINTESTINAL: Protuberant abdomen, surgical incisions appear to be healing well. EXTREMITIES: Bilateral lower extremity pretibial edema noted. MUSCULOSKELETAL: Adequate muscle tone. NEUROLOGICAL: No obvious focal deficit. Awake, alert, and oriented x3. PSYCHIATRIC: Appropriate mood and affect; insight and judgment normal. Assessment/Plan - Plan 67-year-old man with a diagnosis of adenocarcinoma of the cecum with extensive metastatic disease burden to the liver. Subcentimeter pulmonary nodules were also identified in the lungs. CEA level approximately 4900, CA 19-9 level was also elevated. Status post resection of the cecum for management of large bowel obstruction. Oncology was asked to see the patient to help coordinate initiation of outpatient therapy. Recommendations: 1. Metastatic adenocarcinoma of the cecum: Await final pathology. We will request KRAS and NRAS mutational analysis. Case discussed with surgical team, typically we would wait 3-4 weeks following surgery to initiate systemic chemotherapy. Infusion port will go in in the upcoming 1-2 weeks. Oncology will follow along with you.
[2018-03-08] MEDS: Heparin - SQ 10,000 UNITS/ML Vial SQ SCH ×2 (09:32→20:19)
--- NOTE | 2018-03-08 09:40 | P.PNGS ---
<AddisonSandee - Last Filed: 03/08/18 09:35> Subjective Interval history: Resting in bed; complains of diarrhea Wants to advance from clear liquids Physical Exam Vital signs: Vital Signs 03/07/18 12:00 03/07/18 16:00 03/07/18 20:00 Temperature 97.9 F 98.8 F 99.2 F Pulse Rate 68 70 71 Respiratory Rate 18 18 Blood Pressure 129/77 140/74 143/87 H Pulse Oximetry 99 97 96 03/08/18 00:00 03/08/18 04:00 03/08/18 08:00 Temperature 98.0 F 97.4 F L 98.8 F Pulse Rate 86 80 66 Respiratory Rate 18 Blood Pressure 148/80 H 127/78 133/80 Pulse Oximetry 96 95 96 Intake & Output 03/07/18 03/08/18 03/08/18 18:59 06:59 18:59 Intake Total 100 / 100 1000 / 1000 Output Total 4 / 4 Balance 100 / 100 996 / 996 Intake: IV 1000 / 1000 NS Inj 1,000 ML @ 50 mls/hr IV. 1000 / 1000 CONT .Q20H [facility] Rx#:[id number] Other 100 / 100 Output: Urine/Stool Mix 4 / 4 Other: # Voids 4 Narrative: Alert and awake Cardio: RRR Resp:CTAB Abd: ZACARIAS in place with good seal; abdominal binder in place - Urinary Catheter Management Indwelling Urethral Catheter Cath placed during this visit: yes, but has since been removed by the nurse Reason for continuing: Decision to DC catheter Insertion date: 03/04/18 Insertion time: 12:00 Removal date: 03/05/18 Removal time: 10:00 Assessment and Plan - Assessment (1) Colon cancer Code(s): C18.9 - Malignant neoplasm of colon, unspecified Status: Chronic Plan: POD4 Lap assisted right hemicolectomy -Advance to full liquids -Pain control with TYPING CHECKER--- PO pain pills available -Decrease IVF -OOB as tolerated -Discussed with Dr. Fontaine--- will plan for chemotherapy after recovery from surgery -Will need to arrange Infusaport placement (2) Intestinal mass Code(s): K63.89 - Other specified diseases of intestine Status: Acute (3) Liver metastasis Code(s): C78.7 - Secondary malignant neoplasm of liver and intrahepatic bile duct Status: Acute (4) Hx of mitral valve repair Code(s): Z98.890 - Other specified postprocedural states Status: Acute - Plan 67 year old male with 1 week history of abdominal pain; CT findings of cecum mass; metastatic liver lesions -POD1 lap assisted right extended hemicolectomy -Consult to Oncology ---requests Dr. Fontaine; discussed with Marisa MACKAY -Pathology reviewed--- + adenocarcinoma -Clear liquids -Pain control with TYPING CHECKER -Reviewed intraoperative pictures with patient -IVF -LLOYD Roldan <Fede Olivia - Last Filed: 03/08/18 14:34> Subjective Interval history: DAILY PROGRESS NOTE FOR SURGICAL ATTENDING, DR. FEDE OLIVIA Physical Exam Vital signs: Vital Signs 03/07/18 16:00 03/07/18 20:00 03/08/18 00:00 Temperature 98.8 F 99.2 F 98.0 F Pulse Rate 70 71 86 Respiratory Rate 18 18 18 Blood Pressure 140/74 143/87 H 148/80 H Pulse Oximetry 97 96 96 03/08/18 04:00 03/08/18 08:00 03/08/18 12:00 Temperature 97.4 F L 98.8 F 97.6 F Pulse Rate 80 66 66 Respiratory Rate 18 18 18 Blood Pressure 127/78 133/80 128/73 Pulse Oximetry 95 96 98 Intake & Output 03/07/18 03/08/18 03/08/18 18:59 06:59 18:59 Intake Total 100 / 100 1000 / 1000 Output Total 4 / 4 Balance 100 / 100 996 / 996 Intake: IV 1000 / 1000 NS Inj 1,000 ML @ 50 mls/hr IV. 1000 / 1000 CONT .Q20H [facility] Rx#:[id number] Other 100 / 100 Output: Urine/Stool Mix 4 / 4 Other: # Voids 4 - Urinary Catheter Management Indwelling Urethral Catheter Cath placed during this visit: no Assessment and Plan - Assessment (1) Colon cancer Code(s): C18.9 - Malignant neoplasm of colon, unspecified Status: Chronic (2) Intestinal mass Code(s): K63.89 - Other specified diseases of intestine Status: Acute (3) Liver metastasis Code(s): C78.7 - Secondary malignant neoplasm of liver and intrahepatic bile duct Status: Acute (4) Hx of mitral valve repair Code(s): Z98.890 - Other specified postprocedural states Status: Acute - Attending Attestation NOTE FOR SURGICAL ATTENDING, DR. FEDE OLIVIA I agree with above assessment and plan. The exam, history, and the medical decision-making described in the above note were completed with the assistance of the mid-level provider. I reviewed and agree with the findings presented. I attest that I had a [id number] encounter with the patient on the same day, and personally performed and documented my assessment and findings in the medical record. The following services were provided during this hospital visit: Chart data review, vital sign assessments/reviewing monitor data Review of consultations notes if present. Medication orders/review and/or management Ordering and/or reviewing lab tests Ordering and/or interpreting/reviewing x-rays and/or diagnostic studies Care of the patient and discussion of the patient with the care team Documentation time To help prompt me to consider important information that might be impacting today's encounter and assessment, Information from prior notes written by myself or my colleagues may have been "brought forward/copy and pasted" into today's note. <Sandee Jaime - Last Filed: 03/08/18 09:35> (1) Colon cancer Qualifiers: Colon location: ascending Qualified Code(s): C18.2 - Malignant neoplasm of ascending colon <Fede Olivia - Last Filed: 03/08/18 14:34> (1) Colon cancer Qualifiers: Colon location: ascending Qualified Code(s): C18.2 - Malignant neoplasm of ascending colon
--- NOTE | 2018-03-08 17:06 | P.PNIM ---
Subjective Interval history: The patient stated that he wanted a soft food diet. He said he would be willing to eat that. He was not willing to eat clear liquids. He said his diarrhea was getting a little more formed. Discussed with nursing. Physical Exam Vital signs: Vital Signs 03/07/18 20:00 03/08/18 00:00 03/08/18 04:00 Temperature 99.2 F 98.0 F 97.4 F L Pulse Rate 71 86 80 Respiratory Rate 18 18 18 Blood Pressure 143/87 H 148/80 H 127/78 Pulse Oximetry 96 96 95 03/08/18 08:00 03/08/18 12:00 Temperature 98.8 F 97.6 F Pulse Rate 66 66 Respiratory Rate 18 18 Blood Pressure 133/80 128/73 Pulse Oximetry 96 98 Intake & Output 03/07/18 03/08/18 03/08/18 18:59 06:59 18:59 Intake Total 100 / 100 1000 / 1000 1000 / 1000 Output Total 4 / 4 Balance 100 / 100 996 / 996 1000 / 1000 Intake: IV 1000 / 1000 1000 / 1000 NS Inj 1,000 ML @ 50 mls/hr IV. 1000 / 1000 1000 / 1000 CONT .Q20H [facility] Rx#:[id number] Other 100 / 100 Output: Urine/Stool Mix 4 / 4 Other: # Voids 4 Narrative: GENERAL: No distress. HEART: RRR. LUNGS: CTAB without wheezes or crackles. ABDOMEN: +BS, distended but soft, surgical dressing in place with binder, nontender. EXTREMITIES: 1+ LE edema. NEURO: Awake and alert. - Urinary Catheter Management Indwelling Urethral Catheter Cath placed during this visit: yes, but has since been removed by the nurse Reason for continuing: Decision to DC catheter Insertion date: 03/04/18 Insertion time: 12:00 Removal date: 03/05/18 Removal time: 10:00 Results - Labs CBC & Chem 7: 03/07/18 05:40 03/08/18 06:39 Laboratory Results - last 24 hr 03/08/18 06:39 Sodium 141 Potassium 3.3 L Chloride 107 Carbon Dioxide 25.8 Anion Gap 8 BUN 6 L Creatinine 0.50 L Estimated GFR Greater than 89 Random Glucose 98 Calcium 7.9 L Magnesium 1.9 Assessment and Plan - Assessment (1) Intestinal mass Code(s): K63.89 - Other specified diseases of intestine Status: Acute (2) Liver metastasis Code(s): C78.7 - Secondary malignant neoplasm of liver and intrahepatic bile duct Status: Acute (3) Lung nodules Code(s): R91.8 - Other nonspecific abnormal finding of lung field Status: Acute (4) SBO (small bowel obstruction) Code(s): K56.609 - Unspecified intestinal obstruction, unspecified as to partial versus complete obstruction Status: Acute - Plan 67 year old male with history of mitral valve replacement admitted 02/28 for abdominal pain. On CT, he was found to have a mass on the cecum and terminal ileum along with widespread metastatic lesions on the liver. Intestinal mass with liver mets - CT A/P showing an irregular, large, malignant appearing mass of the cecum and terminal ileum with associated SBO. There is also metastatic regional mesenteric nodules and/or lymph node in the RLQ as well as widespread liver mets - LFTs elevated - GI and general surgery consulted, s/p colectomy 03/04 - S/p CT-guided biopsy of liver 03/01. Pathology LIVER, MASS, NEEDLE BIOPSY: MODERATELY DIFFERENTIATED ADENOCARCINOMA - S/p colonoscopy 03/02 showing an obstructing cecal mass and a pedunculated midtransverse polyp that was removed. - S/P 1. Laparoscopic-assisted right extended hemicolectomy. and 2. Partial omentectomy with Dr. Olivia 03/04/18 - pathology: #1-COLON, CECUM, MASS, BIOPSY: - INVASIVE, MODERATELY DIFFERENTIATED ADENOCARCINOMA. #2-COLON, TRANSVERSE, POLYP, POLYPECTOMY: - TUBULOVILLOUS ADENOMA. - CEA and CA19-9 extremely elevated -Oncology consult appreciated. Chemo to be started as an outpt. -Pain management per surgery. SBO Now with diarrhea. - Pain control - diet per surgery. On full liquids at this time. - increase activity - NS decreased to 50 ml/H - Incentive spirometer Lung nodules - Visualized on CT A/P - CT chest showing multiple tiny nodules, either inflammatory or early mets - History of tobacco abuse >20 years ago - Supplemental O2 to maintain sats >92% - oncology following Anemia, acute on chronic - Likely secondary to intestinal mass - Hemodynamically stable - Continue to monitor - Transfuse if Hb < 7 or symptomatic History of mitral valve replacement - Monitor BP - No signs of CHF except chronic LE edema DVT prophylaxis: SCDs, resume heparin
[2018-03-08] MEDS ORDERED: Potassium Chloride 25 MEQ Effervescent Tablet PO ONE (18:00)
[2018-03-09] MEDS: Sod Chloride 0.9% Inj 1,000 ML IV.CONT SCH (05:06)
[2018-03-09 07:13] LABS: Baso # (Auto) 0.1 th/mm3 (0.0-0.2); Baso % (Auto) 0.5 % (0.0-2.0); Eos # (Auto) 0.1 th/mm3 (0.0-0.4); Eos % (Auto) 1.2 % (0.0-4.0); Hematocrit 25.1 % (39.0-51.0); Hemoglobin 8.2 gm/dL (13.0-17.0); Lymph % (Auto) 9.3 % (9.0-44.0); Mean Corpuscular HGB Conc 32.8 % (32.0-36.0); Mean Corpuscular Hemoglobin 24.1 pg (27.0-34.0); Mean Corpuscular Volume 73.6 fL (80.0-100.0); Mean Platelet Volume 7.3 fL (7.0-11.0); Mono # (Auto) 1.1 th/mm3 (0.0-0.9); Mono % (Auto) 10.1 % (0.0-8.0); Neut # (Auto) 8.3 th/mm3 (1.8-7.7); Neut % (Auto) 78.9 % (16.0-70.0); Platelet Count 447 th/mm3 (150-450); Red Blood Count 3.41 mil/mm3 (4.50-5.90); Red Cell Distribution Width 16.2 % (11.6-17.2); White Blood Count 10.6 th/mm3 (4.0-11.0)
[2018-03-09 07:39] LABS: Anion Gap 8 meq/L (5-15); Blood Urea Nitrogen 6 mg/dL (7-18); Calcium 8.1 mg/dL (8.5-10.1); Carbon Dioxide 24.9 meq/L (21.0-32.0); Chloride 105 meq/L (98-107); Glomerular Filtration Rate Greater Than 89 mL/min (>89); Glucose,Random 98 mg/dL (74-106); Magnesium 1.8 mg/dL (1.5-2.5); Potassium 3.1 meq/L (3.5-5.1); Sodium 138 meq/L (136-145)
[2018-03-09] MEDS: Heparin - SQ 10,000 UNITS/ML Vial SQ SCH (09:05)
--- NOTE | 2018-03-09 09:44 | P.PNGS ---
Subjective Patient reports: no new complaints ( DAILY PROGRESS NOTE FOR SURGICAL ATTENDING, DR. HERMILO PATEL ), feels better, tolerating a regular diet, flatus, bowel movement Physical Exam Vital signs: Vital Signs 03/09/18 04:00 03/09/18 08:00 Temperature 97.9 F 98.8 F Pulse Rate 69 66 Respiratory Rate 19 18 Blood Pressure 118/71 130/76 Pulse Oximetry 95 97 Intake & Output 03/08/18 03/09/18 03/09/18 18:59 06:59 18:59 Intake Total 1000 / 1000 100 / 100 Balance 1000 / 1000 100 / 100 Intake: IV 1000 / 1000 100 / 100 NS Inj 1,000 ML @ 50 mls/hr IV. 1000 / 1000 100 / 100 CONT .[facility] Rx#:[id number] Other: # Voids 4 Date of Last Bowel Movement 03/08/18 # Bowel Movements 4 Narrative: GENERAL: No distress. Sitting at the side of the bed would like to go home HEART: RRR. LUNGS: CTAB without wheezes or crackles. ABDOMEN: +BS, distended but soft, surgical dressing in place with binder, nontender. EXTREMITIES: 1+ LE edema. NEURO: Awake and alert. - Additional findings Additional findings: ITS Impressions Abdomen/Pelvis CT 02/28/18 18:47 CONCLUSION: 1. Irregular, large, malignant appearing mass of the cecum and terminal ileum with associated small bowel obstruction.. 2. Metastatic regional mesenteric nodules and/or lymph nodes in the right lower quadrant. 3. Widespread metastatic disease of the liver. 4. A subcentimeter nodule is seen in each visualized lung bases with very small bilateral effusions. 5. 5 mm sclerotic focus of the left sixth rib nonspecific but statistically most likely a benign bone island. Chest CT 03/01/18 00:00 CONCLUSION: 1. Multiple tiny 3 mm or less nodules in both lungs. Differential diagnosis is postinflammatory change or early metastatic disease. Trace pleural fluid. No adenopathy. Previous sternotomy with mitral valve replacement. Liver Biopsy CT 03/01/18 00:00 CONCLUSION: 1. Uncomplicated CT guided biopsy of liver masses. Abdomen X-Ray 03/02/18 00:00 CONCLUSION: There are moderately distended small bowel loops again seen. Laboratory Last Values CBC w Diff Auto diff final 02/28/18 19:00 WBC 10.6 th/mm3 (4.0-11.0) 03/09/18 05:56 RBC 3.41 mil/mm3 (4.50-5.90) L 03/09/18 05:56 Hgb 8.2 gm/dL (13.0-17.0) L 03/09/18 05:56 Hct 25.1 % (39.0-51.0) L 03/09/18 05:56 MCV 73.6 fL (80.0-100.0) L 03/09/18 05:56 MCH 24.1 pg (27.0-34.0) L 03/09/18 05:56 MCHC 32.8 % (32.0-36.0) 03/09/18 05:56 RDW 16.2 % (11.6-17.2) 03/09/18 05:56 Plt Count 447 th/mm3 (150-450) 03/09/18 05:56 MPV 7.3 fL (7.0-11.0) 03/09/18 05:56 Neut % (Auto) 78.9 % (16.0-70.0) H 03/09/18 05:56 Lymph % (Auto) 9.3 % (9.0-44.0) 03/09/18 05:56 [place] % (Auto) 10.1 % (0.0-8.0) H 03/09/18 05:56 Eos % (Auto) 1.2 % (0.0-4.0) 03/09/18 05:56 Baso % (Auto) 0.5 % (0.0-2.0) 03/09/18 05:56 Neut # (Auto) 8.3 th/mm3 (1.8-7.7) H 03/09/18 05:56 Lymph # (Auto) 1.0 th/mm3 (1.0-4.8) 03/09/18 05:56 [place] # (Auto) 1.1 th/mm3 (0.0-0.9) H 03/09/18 05:56 Eos # (Auto) 0.1 th/mm3 (0.0-0.4) 03/09/18 05:56 Baso # (Auto) 0.1 th/mm3 (0.0-0.2) 03/09/18 05:56 WBC Differential . 03/09/18 05:56 Differential Comment Auto diff final 03/09/18 05:56 PT 12.7 sec (9.8-11.6) H 03/01/18 11:17 INR 1.3 Ratio 03/01/18 11:17 Sodium 138 meq/L (136-145) 03/09/18 05:56 Potassium 3.1 meq/L (3.5-5.1) L 03/09/18 05:56 Chloride 105 meq/L (98-107) 03/09/18 05:56 Carbon Dioxide 24.9 meq/L (21.0-32.0) 03/09/18 05:56 Anion Gap 8 meq/L (5-15) 03/09/18 05:56 BUN 6 mg/dL (7-18) L 03/09/18 05:56 Creatinine 0.46 mg/dL (0.60-1.30) L 03/09/18 05:56 Estimated GFR Greater than 89 mL/min (>89) 03/09/18 05:56 Random Glucose 98 mg/dL (74-106) 03/09/18 05:56 Calcium 8.1 mg/dL (8.5-10.1) L 03/09/18 05:56 Magnesium 1.8 mg/dL (1.5-2.5) 03/09/18 05:56 Total Bilirubin 0.8 mg/dL (0.2-1.0) 03/02/18 08:45 AST 39 U/L (15-37) H 03/02/18 08:45 ALT 17 U/L (12-78) 03/02/18 08:45 Alkaline Phosphatase 187 U/L (45-117) H 03/02/18 08:45 Total Protein 6.6 g/dL (6.4-8.2) D 03/02/18 08:45 Albumin 2.2 g/dL (3.4-5.0) L 03/02/18 08:45 Lipase 82 U/L (73-393) 02/28/18 19:00 Tumor Marker AFP 2.7 ng/mL (0.5-8.0) 03/01/18 11:17 Carcinoembryonic Ag 4829.1 ng/mL (0.2-5.0) H 03/01/18 11:17 CA 19-9 Antigen 00418.0 U/mL (0.0-35.0) H 03/01/18 11:17 Hepatitis A IgM Ab Nonreactive (Nonreactive) 03/01/18 11:17 Hep Bs Antigen Nonreactive (Nonreactive) 03/01/18 11:17 Hep B Core IgM Ab Nonreactive (Nonreactive) 03/01/18 11:17 Hep C IgG Ab Nonreactive (Nonreactive) 03/01/18 11:17 Blood Type A Positive 03/04/18 10:46 Blood Type Recheck Not needed 03/04/18 10:46 Antibody Screen Negative 03/04/18 10:46 RIGHT COLON WITH CECUM, TERMINAL ILEUM AND OMENTUM, RIGHT HEMICOLECTOMY AND OMENTECTOMY: RIGHT COLON AND CECUM: - INVASIVE MODERATELY DIFFERENTIATED ADENOCARCINOMA (SEE PATHOLOGY SUMMARY). - ABSENT APPENDIX. TERMINAL ILEUM: - NEGATIVE FOR CARCINOMA. OMENTUM: - INVASIVE MODERATELY DIFFERENTIATED ADENOCARCINOMA. PATHOLOGY SUMMARY PROCEDURE: RIGHT HEMICOLECTOMY. TUMOR SITE: CECUM AND ILEOCECAL VALVE. TUMOR SIZE: 6.0 CM IN GREATEST DIMENSION. MACROSCOPIC TUMOR PERFORATION: NOT IDENTIFIED. HISTOLOGIC TYPE: ADENOCARCINOMA. HISTOLOGIC GRADE: GRADE 2 (MODERATELY DIFFERENTIATED). TUMOR EXTENSION: TUMOR INVADES THROUGH MUSCULARIS PROPRIA INTO PERICOLIC TISSUE. MARGINS: ALL MARGINS ARE UNINVOLVED BY INVASIVE CARCINOMA, HIGH GRADE DYSPLASIA, INTRAMUCOSAL ADENOCARCINOMA AND ADENOMA. MARGINS EXAMINED: PROXIMAL, DISTAL, AND RADIAL. TREATMENT EFFECT: NO KNOWN PRESURGICAL THERAPY. LYMPHOVASCULAR INVASION: PRESENT. PERINEURAL INVASION: NOT IDENTFIED. TUMOR DEPOSITS: PRESENT. SPECIFIED NUMBER OF DEPOSITS: 2 REGIONAL LYMPH NODES: NUMBER OF LYMPH NODES INVOLVED: 4 NUMBER OF LYMPH NODES EXAMINED: 13 PATHOLOGIC STAGE CLASSIFICATION (pTNM, AJCC 8th Edition): PRIMARY TUMOR: pT3. REGIONAL LYMPH NODES: pN2a. DISTANT METASTASIS: pM1 (SEE [id number]). DMH/aditya Comment NRAS, KRAS and BRAF are pending and will be reported separately. MMR studies by immunohistochemistry are pending and will be reported as an addendum - Urinary Catheter Management Indwelling Urethral Catheter Cath placed during this visit: yes, but has since been removed by the nurse Reason for continuing: Decision to DC catheter Insertion date: 03/04/18 Insertion time: 12:00 Removal date: 03/05/18 Removal time: 10:00 Assessment and Plan - Assessment (1) Colon cancer Code(s): C18.9 - Malignant neoplasm of colon, unspecified Status: Chronic Plan: POD4 Lap assisted right hemicolectomy -Advance to full liquids -Pain control with TIMBER FALLER--- PO pain pills available -Decrease IVF -OOB as tolerated -Discussed with Dr. Fontaine--- will plan for chemotherapy after recovery from surgery -Will need to arrange Infusaport placement (2) Intestinal mass Code(s): K63.89 - Other specified diseases of intestine Status: Acute (3) Liver metastasis Code(s): C78.7 - Secondary malignant neoplasm of liver and intrahepatic bile duct Status: Acute (4) Hx of mitral valve repair Code(s): Z98.890 - Other specified postprocedural states Status: Acute - Plan Patient able to go home Follow-up next week in the office for wound evaluation We will plan outpatient [id number] in preparation for his needed chemotherapy - Attending Attestation NOTE FOR SURGICAL ATTENDING, DR. HERMILO PATEL I attest that I had a [id number] encounter with the patient on the same day, and personally performed and documented my assessment and findings in the medical record. The following services were provided during this hospital visit: Chart data review, vital sign assessments/reviewing monitor data Review of consultations notes if present. Medication orders/review and/or management Ordering and/or reviewing lab tests Ordering and/or interpreting/reviewing x-rays and/or diagnostic studies Care of the patient and discussion of the patient with the care team Documentation time To help prompt me to consider important information that might be impacting today's encounter and assessment, Information from prior notes written by myself or my colleagues may have been "brought forward/copy and pasted" into today's note. (1) Colon cancer Qualifiers: Colon location: ascending Qualified Code(s): C18.2 - Malignant neoplasm of ascending colon
--- NOTE | 2018-03-09 10:14 | P.DS ---
Date of admission: 02/28/18 21:11 Primary care physician: No Primary Care Physician Anticipated date of discharge: 03/09/18 Brief History from admission: 67 year old male with history of mitral valve replacement presented to the ER yesterday evening for evaluation of worsening abdominal pain. Pain is sharp and located mostly around the LUQ with no radiation. He states he began having the pain about a week ago but since then it has been becoming progressively worse and occurring with much more frequency, about every 3-4 more minutes. The pain became unbearable yesterday evening so he had his bring him to the ER. He denies relieving factors despite trying multiple OTC modalities such as Dulcolax, Tums, and Gas-X. He hasn't had a bowel movement or passed gas in the past seven days either. He denies nausea or vomiting. He reports he has been belching more frequently and has been having hiccups. He has been able to tolerate broth and water but otherwise has not eaten real food during this time. He reports he had two episodes of black stool about a week preceding the onset of his symptoms. He denies night sweats or unintentional weight loss but states that he has intentionally lost about 10 lb in the past several weeks or so. However, he has also noted that his abdomen has been becoming more distended. He hasn't been followed by a physician in many years and states he has never had a colonoscopy. He states his father may have had prostate cancer in his 70s. His mother is still alive with dementia. His brothers and sisters are alive and well, and he denies any known history of colon cancer in his family. He states typically he drinks a "few beers and cocktails" every night and more on the weekends but hasn't had a drink in the last two weeks. Denies symptoms of withdrawal. DS: Diagnosis - Discharge Diagnosis (1) Intestinal mass Status: Acute (2) Liver metastasis Status: Acute (3) Lung nodules Status: Acute (4) SBO (small bowel obstruction) Status: Acute DS: Medications - Discharge Medications Prescriptions: hydrocodone-acetaminophen 1 tab PO Q4H PRN #18 tab PRN Reason: post op surgical pain potassium chloride 20 meq PO DAILY #7 tab DS: Summary Hospital Course: Adenocarcinoma/ SBO 67 year old male with history of mitral valve replacement admitted 02/[address] scan showed an irregular, large, malignant appearing mass of the cecum and terminal ileum with associated small bowel obstruction. There is also metastatic regional mesenteric nodules and/or lymph node in the RLQ as well as widespread liver mets. CT chest showing multiple tiny nodules, either inflammatory or early mets. LFTs were elevated. CEA and CA19-9 were extremely elevated GI and general surgery were consulted. S/p CT-guided biopsy of liver 03/01 notable for moderately differentiated adenocarcinoma. S/p colonoscopy 03/02 showing an obstructing cecal mass and a pedunculated midtransverse polyp that was removed. Polyp pathology was tubulovillous adenoma. S/p: Laparoscopic-assisted right extended hemicolectomy; Partial omentectomy on 03/04/18. His diet was slowly advanced and he started having bowel movements. He received pain meds and antiemetics as needed. He received potassium supplementation for hypokalemia. Oncology was consulted and he will follow-up as an outpt. He will follow-up with general surgery as well. - Time Spent with Patient Total time spent providing and/or coordinating discharge services: Less than 30 minutes - Quality: VTE Deep Vein Thrombosis/Pulmonary Embolism Present on Admission: No Exam Vital signs: Vital Signs 03/08/18 12:00 03/08/18 20:00 03/09/18 00:00 Temperature 97.6 F 99.5 F 98.2 F Pulse Rate 66 84 80 Respiratory Rate 18 17 18 Blood Pressure 128/73 130/73 126/74 Pulse Oximetry 98 96 96 03/09/18 04:00 03/09/18 08:00 Temperature 97.9 F 98.8 F Pulse Rate 69 66 Respiratory Rate 19 18 Blood Pressure 118/71 130/76 Pulse Oximetry 95 97 Intake & Output 03/08/18 03/09/18 03/09/18 18:59 06:59 18:59 Intake Total 1000 / 1000 100 / 100 Balance 1000 / 1000 100 / 100 Intake: IV 1000 / 1000 100 / 100 NS Inj 1,000 ML @ 50 mls/hr IV. 1000 / 1000 100 / 100 CONT .Q20H [facility] Rx#:[id number] Other: # Voids 4 Date of Last Bowel Movement 03/08/18 # Bowel Movements 4 Narrative: GENERAL: No distress. HEART: RRR. LUNGS: CTAB without wheezes or crackles. ABDOMEN: +BS, distended but soft, surgical dressing in place with binder, nontender. EXTREMITIES: 1+ LE edema. NEURO: Awake and alert. Results Procedures completed during hospitalization: See hospital course Labs on day of discharge: Labs from last 24 hours 03/09/18 03/09/18 05:56 05:56 WBC 10.6 RBC 3.41 L Hgb 8.2 L Hct 25.1 L MCV 73.6 L MCH 24.1 L MCHC 32.8 RDW 16.2 Plt Count 447 MPV 7.3 Neut % (Auto) 78.9 H Lymph % (Auto) 9.3 [place] % (Auto) 10.1 H Eos % (Auto) 1.2 Baso % (Auto) 0.5 Neut # (Auto) 8.3 H Lymph # (Auto) 1.0 [place] # (Auto) 1.1 H Eos # (Auto) 0.1 Baso # (Auto) 0.1 WBC Differential . Differential Comment Auto diff final Sodium 138 Potassium 3.1 L Chloride 105 Carbon Dioxide 24.9 Anion Gap 8 BUN 6 L Creatinine 0.46 L Estimated GFR Greater than 89 Random Glucose 98 Calcium 8.1 L Magnesium 1.8 - Impressions ITS Impressions Abdomen/Pelvis CT 02/28/18 18:47 CONCLUSION: 1. Irregular, large, malignant appearing mass of the cecum and terminal ileum with associated small bowel obstruction.. 2. Metastatic regional mesenteric nodules and/or lymph nodes in the right lower quadrant. 3. Widespread metastatic disease of the liver. 4. A subcentimeter nodule is seen in each visualized lung bases with very small bilateral effusions. 5. 5 mm sclerotic focus of the left sixth rib nonspecific but statistically most likely a benign bone island. Chest CT 03/01/18 00:00 CONCLUSION: 1. Multiple tiny 3 mm or less nodules in both lungs. Differential diagnosis is postinflammatory change or early metastatic disease. Trace pleural fluid. No adenopathy. Previous sternotomy with mitral valve replacement. Liver Biopsy CT 03/01/18 00:00 CONCLUSION: 1. Uncomplicated CT guided biopsy of liver masses. Abdomen X-Ray 03/02/18 00:00 CONCLUSION: There are moderately distended small bowel loops again seen. Discharge Plan - Discharge Disposition Patient Disposition: Discharge Home - Discharge Condition Condition: Stable - Discharge Order Discharge Orders: Discharge Order (Routine); Ordered 03/09/18 Ordered By: Buck Marin - Discharge Details Anticipated Discharge Date: 03/09/18 Discharge Comment: Discharge after lunch and potassium infusion - Physicians Team Primary Care Provider: Primary Care Rosi Kahn Attending Provider: Buck Marin Other Providers: Fede Olivia MD ; [place] Guillen MD ; Surgeons,[facility] ; Gwen Hidalgo ; Dio Fontaine MD
[2018-03-09] MEDS: Potassium Chlor 10 mEq Premix 10 MEQ/100 ML PIGGYBACK IV.SIG SCH ×4 (11:08→16:03)
== END 2018-03-09 16:09 | disposition home or self-care (01) ==
LOC: PHED 16:51 → PHEDA 21:11 → N07 03-01 01:00
PROVIDERS: ADMIT Hospitalist; ATTEND Hospitalist
PROC: COLONOS (2018-03-02 12:15)